=== PATIENT | male | born 1950 | race Caucasian/White ===

== ENCOUNTER 2021-04-22 06:21 | Day surgery (SDC) | payer OTHER ==
[~2021-04-22 06:21] MED LIST: ALPRAZolam 0.25 MG TAB PO PRN; ALPRAZolam 0.5 MG TAB PO PRN; ASPIRIN 325 MG TAB PO STA; ATORVASTATIN 80 MG TAB PO STA; HEPARIN SODIUM,PORCINE 10,000 UNIT in SODIUM CHLORIDE 0.9% 1,000 ML IRRIGATION PRN; HEPARIN SODIUM,PORCINE 2,500 UNIT in SODIUM CHLORIDE 0.9% 250 ML IRRIGATION PRN; SODIUM CHLORIDE 0.9% 1,000 ML in EMPTY BAG 1 BAG IV ONE
[2021-04-22] MEDS ORDERED: SODIUM CHLORIDE 0.9% 1,000 ML IV ONE (07:21)
[2021-04-22] MEDS ORDERED: MIDAZOLAM 2 MG/2 ML VIAL IVP ONE (07:37)
[2021-04-22] MEDS: LIDOCAINE 1% INJ 10MG/ML (20 ML MDV) SQ ONE ×2 (07:39→08:12)
[2021-04-22] MEDS ORDERED: VERAPAMIL SYRINGE (5 MG/10 ML) INTRAARTER ONE (07:41)
[2021-04-22] MEDS ORDERED: HEPARIN SODIUM 1,000 UN/ML (10ML VL) IVP ONE (07:42)
[2021-04-22] MEDS: fentaNYL (PF) 50 MCG/ML 2 ML AMP IVP ONE ×2 (07:59→08:50)
[2021-04-22] MEDS ORDERED: MIDAZOLAM 2 MG/2 ML VIAL IV ONE (08:18)
[2021-04-22] MEDS ORDERED: IOPAMIDOL-370 125ML BTL INJ ONE ×2 (08:18→08:49)
[2021-04-22] MEDS ORDERED: HYDROmorphone 0.5 MG/0.5 ML SYRINGE IVP ONE (08:31)
[2021-04-22] MEDS ORDERED: NITROGLYCERIN 1000MCG/10ML SYRINGE INTRACORON ONE (08:35)
[2021-04-22] MEDS ORDERED: niCARdipine Syringe (1,000 mcg/10 mL) INTRACORON ONE (08:35)
[2021-04-22] MEDS ORDERED: TICAGRELOR 90 MG TAB PO ONE (08:43)
[2021-04-22] MEDS ORDERED: NITROGLYCERIN SL TABS 0.4 MG TAB SUBLINGUAL PRN (08:54)
[2021-04-22] MEDS ORDERED: ZOLPIDEM 5 MG TAB PO PRN (08:55)
[2021-04-22] MEDS ORDERED: MAG HYDROX/AL HYDROX/SIMETH 30 ML CUP PO PRN (08:55)
[2021-04-22] MEDS ORDERED: RX INFO: IV CONTRAST WAS GIVEN 1 EACH MISC MISCELLANE PRN (08:55)
[2021-04-22] MEDS ORDERED: ATROPINE SULFATE 0.1 MG/ML 10ML SYRINGE IV PRN (08:55)
[2021-04-22] MEDS ORDERED: SODIUM CHLORIDE 0.9% 1,000 ML IV SCH (09:00)
[2021-04-22] MEDS ORDERED: ACETAMINOPHEN TAB 325 MG TAB ONE (09:32)
[2021-04-22] MEDS ORDERED: hydrALAZINE HCL 20 MG/ML 1 ML VIAL IVP PRN (10:27)
[2021-04-22] MEDS ORDERED: HYDROmorphone 0.5 MG/0.5 ML SYRINGE IVP PRN (10:27)
--- NOTE | 2021-04-22 10:51 | CC ---
CARDIAC CATHETERIZATION REPORT DATE OF SERVICE: April 22, 2021. PERFORMING PHYSICIAN: Parker Negron MD. PROCEDURE PERFORMED: 1. Selective right and left coronary angiogram. 2. Successful stenting of the proximal left anterior descending artery using 3.0 x 15 mm Xience drug-eluting stent with an excellent angiographic results. 3. Selective right common femoral artery angiogram. INDICATION: This is a 70-year-old gentleman with coronary artery disease and prior stenting of the LAD who was seen in the office recently with symptoms concerning for unstable angina. Because of that, a heart catheterization was advised. APPROACH: Right radial artery and right common femoral artery. COMPLICATION: None. LEVEL OF SEDATION: Moderate with sedation length of 82 minutes. PROCEDURE DESCRIPTION: After obtaining an informed consent, the patient was brought to the cardiac garage laborer. The right radial artery was cannulated using micropuncture technique under ultrasound guidance, the micropuncture wire passed easily. Then I placed a 6-Libyan sheath in the right radial artery. Selective left coronary angiogram was performed using JL-4 guiding catheter. After that, attempt to intervene on the LAD from right radial was unsuccessful. Because of that, I decided to abort the right radial approach and go from the right groin. The right common femoral artery was cannulated using micropuncture technique and a micropuncture wire passed easily. Then I placed a 6-Libyan sheath in the right common femoral artery. After that, I did intervene on the LAD. After that, I did left coronary angiogram using JR4 catheter. The procedure was completed without any complication. SELECTIVE CORONARY ANGIOGRAM: 1. The RCA is a medium caliber vessel. It is a nondominant vessel. It appeared to have intermediate to severe diffuse disease. 2. The left main is angiographically normal. It bifurcates into left circumflex and left anterior descending artery. 3. The left circumflex is a large caliber vessel. It is a dominant vessel. The proximal left circumflex has mild disease only and gives rise into the first obtuse marginal branch which has a tubular lesion appeared to be in the range of 50% to 60%. The left circumflex after that bifurcates distally into PDA and PLV branches. Both appeared to be angiographically normal. 4. The LAD is a large caliber vessel. The LAD proximally by the bifurcation of the large septal recruiter account manager, has a hazy lesion appeared to be in the range of 70%. The mid and distal LAD appeared to have mild disease only. The LAD also proximally gives rise into a 1st diagonal branch which is a moderate caliber vessel, appeared to be angiographically normal. PCI OF THE LAD: Anticoagulation was initiated using heparin with continuous ACT monitoring throughout the procedure. Subsequently, I did engage the left main using EBU guide. I did wire the LAD using 2 wires run-through as well as Whisper wire. Balloon angioplasty was performed using a 2.5 x 12 mm balloon before I deployed 3.0 x 15 mm Xience drug-eluting stent where the stent was positioned under fluoroscopy guidance and deployed under its nominal pressure. The following angiogram showed excellent angiographic results and the procedure was completed without any complication. CONCLUSION: 1. Intermittent episodes of chest discomfort of new onset seems to be concerning for unstable angina. 2. Severe disease involving the proximal LAD just proximal to a stented segment. 3. I did successful stenting of the LAD using 3.0 x 15 mm Xience drug-eluting stent with an excellent angiographic results. 4. Intermediate disease involving the dominant left circumflex coronary system. POSTPROCEDURE MANAGEMENT: 1. Dual anti-platelet therapy. 2. Aggressive cholesterol control. 3. Risk factor modifications. 4. Follow up with the patient. MMODL / IJN: [id number] /
[2021-04-22] MEDS: NITROGLYCERIN SL TABS 0.4 MG TAB SUBLINGUAL PRN ×4 (11:12→20:24)
[2021-04-22] MEDS ORDERED: ONDANSETRON 4 MG/2 ML VIAL IVP PRN (12:52)
[2021-04-22] MEDS: TICAGRELOR 90 MG TAB PO SCH (22:07)
[2021-04-23 08:09] VITALS: BP 153/80; PULSE 75; RESP 17; TEMP 97.4
[2021-04-23 08:23] LABS: Basophils % (A) 0 %; Eosinophils # (A) 0.3 k/uL (0-0.7); Eosinophils % (A) 4 %; HCT 45.4 % (39.0-53.0); HGB 15.4 gm/dL (13.0-17.5); Lymphocytes # (A) 1.3 k/uL (1.0-4.8); Lymphocytes % (A) 17 %; MCH 32.4 pg (25.0-35.0); MCV 95.5 fL (80.0-100.0); Mean Platelet Volume 7.4; Monocytes # (A) 0.5 k/uL (0-1.0); Monocytes % (A) 6 %; Neutrophils # (A) 5.5 k/uL (1.3-7.7); Neutrophils % (A) 71 %; Platelet Count 210 k/uL (150-450); RBC 4.76 m/uL (4.30-5.90); RDW 13.2 % (11.5-15.5); WBC 7.7 k/uL (3.8-10.6)
[2021-04-23] MEDS: TICAGRELOR 90 MG TAB PO SCH (08:31)
[2021-04-23 08:33] LABS: African American GFR (CKD) >90 (>60 ml/min/1.73 sqM); Anion Gap 7 mmol/L; Blood Urea Nitrogen 21 mg/dL (9-20); Calcium 9.6 mg/dL (8.4-10.2); Carbon Dioxide 24 mmol/L (22-30); Chloride 107 mmol/L (98-107); Glucose 90 mg/dL (74-99); Non-African American GFR(CKD) >90 (>60 ml/min/1.73 sqM); Potassium 4.2 mmol/L (3.5-5.1); Sodium 138 mmol/L (137-145)
[2021-04-23] MEDS ORDERED: ATORVASTATIN 80 MG TAB PO SCH (09:00)
[2021-04-23] MEDS ORDERED: ASPIRIN 81 MG PO SCH (09:00)
[2021-04-23] MEDS ORDERED: lisinopriL 10 MG TAB PO SCH (09:00)
[2021-04-23] MEDS ORDERED: NON FORMULARY DRUG (Glucosamine-Chondr 500-400mg 1 EACH Each) PO SCH (09:00)
[2021-04-23] MEDS ORDERED: METOPROLOL TARTRATE 50 MG TAB PO SCH (09:00)
--- NOTE | 2021-04-23 17:50 | DS ---
DISCHARGE SUMMARY ADMISSION DATE: April 22, 2021. DISCHARGE DATE: April 23, 2021 BRIEF HISTORY: This is a very pleasant 70-year-old gentleman who underwent yesterday successful stenting of the proximal left anterior descending artery with good angiographic results from right groin and right radial artery approach. Patient was seen this morning. He did have some chest discomfort yesterday, but today he is completely chest pain-free and he has been walking up and around without any symptoms. The patient is going to be discharged home on dual anti-platelet therapy and I will follow up with the patient in a week in the office. MMODL / IJN: [id number] /
== END 2021-04-23 12:25 | disposition home or self-care (01) ==
LOC: CATHCVL 06:21 → 6NMEDSUR 13:05 → CATHCVL 04-23 12:25
PROVIDERS: ATTEND Internal Medicine Interventional Cardiology
DX: I25.10 Atherosclerotic heart disease of native coronary artery without angina pectoris (principal); I10 Essential (primary) hypertension; E78.5 Hyperlipidemia, unspecified; Z82.49 Family history of ischemic heart disease and other diseases of the circulatory system; Z95.5 Presence of coronary angioplasty implant and graft; I35.8 Other nonrheumatic aortic valve disorders; Z79.82 Long term (current) use of aspirin; Z79.899 Other long term (current) drug therapy; Z88.1 Allergy status to other antibiotic agents; Z88.8 Allergy status to other drugs, medicaments and biological substances; E66.3 Overweight; Z68.30 Body mass index [BMI] 30.0-30.9, adult
CPT/HCPCS: 93454; 80048; 84484 ×2; 85025; C9600; J2250; J0360; J2001; J3010; J1644; J1170; Q9967

== ENCOUNTER → 2021-09-08 | Outpatient (CLI) | payer OTHER ==
--- NOTE | 2021-09-08 12:27 | MR ---
EXAMINATION TYPE: MR Prostate wo/w con DATE OF EXAM: 09/08/2021 COMPARISON: None. IMAGE QUALITY: Satisfactory. INDICATION: C61 prostate ca, High PSA level PSA: 5.9 ng/ml on July 08, 2021 Recent Biopsy and Date: none Pathology Report (If Applicable): n/a TECHNIQUE: Examination was performed using a 3T MRI without an endorectal coil. Multiparametric imaging was perf ormed with T2 mutliplanar sequences, axial diffusion weighted imaging and dynamic contrast enhanced i maging, utilizing 10 mL intravenous Gadavist gadolinium contrast. FINDINGS: There is no clinically significant cancer identified. PROSTATE VOLUME: 5.7 cm SI x 4.6 cm AP x 5.6 cm LR Vol= 76.9 cc Predicted PSA equals 9.228 PSA DENSITY: 0.08 ng/ml/cc Peripheral zone appears thinned without areas of suspicious diminished signal on ADC mapping. Transitional zone shows overall marked heterogeneity without suspicious indistinct or distinct lesion s of asymmetric T2 hypointensity. Prostate capsule is maintained. Seminal vesicles are symmetric and within normal limits. No adjacent adenopathy is seen. Bladder is poorly distended with mild to moderate wall thickening and trabeculations. SPECT outlet ob struction. Visualized osseous structures are intact. Facet arthropathy in the lower lumbar spine is seen. There is moderate-sized fat-containing left inguinal hernia incidentally noted. IMPRESSION: Markedly enlarged prostate consistent with BPH. A focus of clinically significant cancer is not identified. Highest Assessment Category: 1 MRI Stage: T0 N0 M0 based on review of pelvic images. False negative rates for MRI range from 5-20% depending on risk profile. Assessment Categories: 1 ? Very low (clinically significant cancer is highly unlikely to be present) 2 ? Low (clinically significant cancer is unlikely to be present) 3 ? Intermediate (the presence of clinically significant cancer is equivocal) 4 ? High (clinically significant cancer is likely to be present) 5 ? Very high (clinically significant cancer is highly likely to be present)
== END | disposition home or self-care (01) ==
LOC: RADMRIMAIN 09:01
PROVIDERS: ATTEND Urology
DX: C61 Malignant neoplasm of prostate (principal)
CPT/HCPCS: 72197; A9585

== ENCOUNTER 2022-01-27 12:06 | Inpatient (IN) | payer MEDICARE ==
--- NOTE | 2022-01-26 16:21 | HP ---
HISTORY AND PHYSICAL CHIEF COMPLAINT: Left knee pain. HISTORY OF PRESENT ILLNESS: The patient is a 71-year-old retired gentleman who presents after undergoing previous viscosupplementation of his left knee on 01/05/2022 with increasing pain and symptoms. Subsequently he had his knee drained with a cortisone injection placed on 01/15/2022. He notes persistent/progressive pain and has a difficult time weightbearing. He denies fevers or chills. He did also start a Medrol Dosepak, with minimal relief. He is using a walker and a brace. PAST MEDICAL HISTORY: Significant for coronary artery disease, hypertension, hypercholesterolemia. PAST SURGICAL HISTORY: Significant for left hand surgery, bilateral knee surgery, cardiac stent placement. CURRENT MEDICATIONS: Aspirin, lisinopril, atorvastatin, Plavix, Singulair and metoprolol. ALLERGIES: KEFLEX AND CIPROFLOXACIN. FAMILY HISTORY: Significant for cancer. SOCIAL HISTORY: Negative for current tobacco or alcohol use. REVIEW OF SYSTEMS: Sixteen-point review of systems is otherwise reviewed and is noncontributory. PHYSICAL EXAMINATION: On examination, the patient is approximately 5 feet 10 inches, 250 pounds of endomorphic habitus. HEENT exam is nonfocal. Neck is supple. He has painless passive motion of the left hip. Straight-leg raise is negative. Active motion of left knee: Minus 20 to 85 degrees of flexion. He has a moderate effusion. There is mild increased warmth. He is tender about the medial and lateral joint line. Collaterals are stable. Zoie is negative. Shady's is equivocal. Homans are negative. His distal neurovascular exam appears intact in the left lower extremity. He does have an antalgic gait pattern. Laboratory results 01/22/2022 show peripheral white blood cell count 12.7, sedimentation rate 44, CRP 8.2. IMPRESSION: Left knee severe medial compartment osteoarthrosis with possible crystalline arthropathy versus septic arthritis. RECOMMENDATIONS: I talked to the patient at length regarding his condition along with treatment options. At this point he remains quite symptomatic despite attempted conservative measures. We will plan to proceed with arthroscopic irrigation and debridement of his left knee. We will keep the patient for a 23-hour hold postoperatively. We will obtain Gram stain and cultures intraoperatively. MMODL / IJN: [id number] /
[~2022-01-27 12:06] MED LIST changes: -ALPRAZolam 0.25 MG TAB PO PRN; -ALPRAZolam 0.5 MG TAB PO PRN; -ASPIRIN 325 MG TAB PO STA; -ATORVASTATIN 80 MG TAB PO STA; +CLINDAMYCIN 600 MG in DEXTROSE 5% IN WATER 50 ML IVPB PRN; -HEPARIN SODIUM,PORCINE 10,000 UNIT in SODIUM CHLORIDE 0.9% 1,000 ML IRRIGATION PRN; -HEPARIN SODIUM,PORCINE 2,500 UNIT in SODIUM CHLORIDE 0.9% 250 ML IRRIGATION PRN; -SODIUM CHLORIDE 0.9% 1,000 ML in EMPTY BAG 1 BAG IV ONE
[2022-01-27] MEDS ORDERED: LACTATED RINGERS 1,000 ML IV ONE (13:50)
[2022-01-27] MEDS ORDERED: LIDOCAINE 1% (10MG/ML) FOR IV START INTRADERMA ONE (13:50)
[2022-01-27 13:55] LABS: Glucose,Whole Blood 111 mg/dL (75-99)
[2022-01-27] MEDS ORDERED: METOPROLOL TARTRATE 50 MG TAB PO SCH (14:00)
[2022-01-27] MEDS ORDERED: HEPARIN SODIUM 1,000 UN/ML (10ML VL) IV ONE (14:13)
[2022-01-27] MEDS ORDERED: HEPARIN SODIUM 1,000 UN/ML (10ML VL) IV PRN (14:13)
[2022-01-27] MEDS ORDERED: DILTIAZEM DRIP BOLUS FROM BAG 1 MG SOLN IV ONE (14:14)
[2022-01-27] MEDS: HEPARIN SOD,PORK IN 0.45% NACL 25,000 UNIT in 0.45% NACL 1 250ML.BAG IV SCH (14:15)
--- NOTE | 2022-01-27 14:29 | P.CRDCN ---
History of Present Illness History of present illness: HISTORY OF PRESENTING ILLNESS This is a pleasant 71-year-old male past medical history significant for coronary artery disease s/p PCI proximal LAD most recently in 04/2021 and PCI proximal PCI 2013, hypertension, dyslipidemia. Follows with Dr. Negron. We have been asked to see in consultation for new onset atrial fibrillation with rapid ventricular response. He has been having left knee pain for some time now. He underwent viscosupplementation of the left knee on 01/05/22, cortisone injection 01/15 and is admitted for planned arthroscopic irrigation and debridement of his left knee with Dr. Monaco. Prior to procedure patient was noted to be tachycardic on the cardiac telemetry. EKG was performed which revealed atrial fibrillation with rapid ventricular response, heart rate 132. Patient did not take his cardiac medications this morning for the planned procedure. Patient denies any history of atrial fibrillation, heart failure, stroke, diabetes. He denies any history of GI bleed or bleeding ulcers. Currently has difficulty ambulating secondary to his left knee. DIAGNOSTICS Telemetry tracings indicate atrial fibrillation with HR 120s-130s Laboratory reviewed, Glucose 111 Current home medications include aspirin 81 mg daily, atorvastatin 80 mg daily, metoprolol titrate 50 mg daily, lisinopril 10 mg daily, Plavix 70 mg daily Cardiac catheterization 04/2021 revealed proximal LAD with a 70% lesion, intermediate to severe disease in RCA, intermediate disease involving the left circumflex. Patient underwent PCI to proximal LAD Most recent echocardiogram 07/2020 revealed EF of 60%, mild mitral regurgitation, mild concentric LVH, mild tricuspid regurgitation REVIEW OF SYSTEMS At the time of my exam: CONSTITUTIONAL: Denies fever or chills. CARDIOVASCULAR: Denies chest pain, shortness of breath, orthopnea, PND or palpitations. RESPIRATORY: Denies cough. GASTROINTESTINAL: Denies abdominal pain, diarrhea, constipation, nausea or vomiting. MUSCULOSKELETAL: +left knee pain NEUROLOGIC: Denies numbness, tingling, headacbe or weakness. ENDOCRINE: Denies fatigue, weight change, polydipsia or polyurina. GENITOURINARY: Denies burning, hematuria or urgency with micturation. HEMATOLOGIC: Denies history of anemia or bleeding. PHYSICAL EXAMINATION Vitals 145/86, heart rate 122, afebrile, saturation 97% on room air CONSTITUTIONAL: No apparent distress. HEENT: Head is normocephalic. Pupils are equal, round. Sclerae anicteric. Mucous membranes of the mouth are moist. No JVD. No carotid bruit. CHEST EXAMINATION: Lungs are clear to auscultation. No chest wall tenderness is noted on palpation or with deep breathing. HEART EXAMINATION: Irregular rate and rhythm. S1, S2 heard. No murmurs, gallops or rub. ABDOMEN: Soft, nontender. Positive bowel sounds. EXTREMITIES: 2+ peripheral pulses, no lower extremity edema and no calf tenderness. SKIN: warm, dry NEUROLOGIC EXAMINATION: Patient is awake, alert and oriented x3. ASSESSMENT New onset paroxysmal atrial fibrillation with RVR -[id number] score 3 Left knee pain with planned arthroscopic irrigation and debridement of his left knee with Dr. Monaco Coronary artery disease s/p PCI proximal LAD most recently in 04/2021 and PCI proximal PCI 2013 Hypertension Dyslipidemia PLAN Case discussed with Dr. Meraz Start IV Cardizem 5mg bolus and drip Increase metoprolol 50mg BID Start IV heparin Check TSH Obtain 2D echocardiogram Recommend admission to 3S Continue aspirin, plavix and statin Further recommendations based on clinical course Nurse practitioner note has been reviewed by physician. Signing provider agrees with the documented findings, assessment, and plan of care. Past Medical History Past Medical History: Coronary Artery Disease (CAD), Chest Pain / Angina, Hyperlipidemia, Sleep Apnea/CPAP/BIPAP Additional Past Medical History / Comment(s): no CPAP used, History of Any Multi-Drug Resistant Organisms: None Reported Past Surgical History: Appendectomy, Back Surgery, Heart Catheterization With Stent, Orthopedic Surgery, Tonsillectomy Additional Past Surgical History / Comment(s): total 2 stents, rt elbow surgery, candelaria knee arthroscopy, l hand x2 Past Anesthesia/Blood Transfusion Reactions: No Reported Reaction Date of Last Stent Placement:: 10/2013 Past Psychological History: No Psychological Hx Reported Smoking Status: Never smoker Past Alcohol Use History: Occasional Past Drug Use History: None Reported - Past Family History Mother Family Medical History: Cancer Medications and Allergies Home Medications Medication Instructions Recorded Confirmed Type Aspirin [Adult Low Dose Aspirin EC] 81 mg PO DAILY 10/14/15 01/27/22 History Atorvastatin [Lipitor] 80 mg PO DAILY 10/14/15 01/27/22 History Metoprolol Tartrate 50 mg PO DAILY 10/14/15 01/27/22 History Nitroglycerin Sl Tabs [Nitrostat] 0.4 mg SUBLINGUAL DIRECTED PRN 10/14/15 01/27/22 History lisinopriL [Zestril] 10 mg PO DAILY 10/14/15 01/27/22 History Acetaminophen [Tylenol Extra 1,000 mg PO BID 01/27/22 01/27/22 History Strength] Acetaminophen/Diphenhydramine 1 tab PO HS PRN 01/27/22 01/27/22 History [Tylenol PM 500-25mg] Cetirizine HCl [Zyrtec] 10 mg PO HS 01/27/22 01/27/22 History Clopidogrel [Plavix] 75 mg PO DAILY 01/27/22 01/27/22 History Montelukast [Singulair] 10 mg PO DAILY 01/27/22 01/27/22 History Tadalafil [Cialis] 5 mg PO DAILY 01/27/22 01/27/22 History diphenhydrAMINE [Benadryl] 25 mg PO DAILY PRN 01/27/22 01/27/22 History methylPREDNISolone [Medrol Dose 0 mg PO DIRECTED 01/27/22 01/27/22 History Pack] Allergies Allergy/AdvReac Type Severity Reaction Status Date / Time cephalexin monohydrate Allergy Anaphylaxis Verified 01/27/22 13:01 [From [employer]] ciprofloxacin Allergy Anaphylaxis Verified 01/27/22 13:01 Physical Exam Vitals: Vital Signs Temp Pulse Resp BP Pulse Ox 01/27/22 13:15 98.2 F 122 H 16 145/86 97 Intake and Output 01/26/22 01/27/22 01/27/22 22:59 06:59 14:59 Other: Weight 104.8 kg Results Current Medications Generic Name Dose Route Start Last Admin Trade Name Freq PRN Reason Stop Dose Admin Atorvastatin Calcium 80 mg 01/28/22 09:00 Atorvastatin 80 Mg Tab PO 02/27/22 09:01 DAILY [facility] Clopidogrel Bisulfate 75 mg 01/27/22 14:15 Clopidogrel 75 Mg Tab PO 02/26/22 14:16 DAILY [facility] Diltiazem HCl 5 mg 01/27/22 14:14 Diltiazem Drip Bolus From Bag 1 Mg Soln IV 01/27/22 14:15 ONCE ONE Heparin Sodium (Porcine) 4,000 unit 01/27/22 14:13 Heparin Sodium 1,000 Un/Ml (10ml Vl) IV 01/27/22 14:14 ONCE ONE Heparin Sodium (Porcine) 0 unit 01/27/22 14:13 Heparin Sodium 1,000 Un/Ml (10ml Vl) IV 02/26/22 14:14 PER PROTOCOL PRN Low PTT Protocol Clindamycin Phosphate 600 mg/ 54 mls @ 54 mls/hr 01/27/22 06:00 Dextrose/Water IVPB 01/27/22 23:00 ONCE PRN PRE-OP Heparin Sodium/Sodium Chloride 250 mls @ 12.576 mls/hr 01/27/22 14:15 25,000 unit/ Sodium Chloride IV 02/26/22 14:16 .[id number] [facility] Protocol 12 UNITS/KG/HR Diltiazem HCl 125 mg/ Sodium 125 mls @ 5 mls/hr 01/27/22 14:15 Chloride IV 02/26/22 14:16 .Q24H [facility] 5 MG/HR Lisinopril 10 mg 01/28/22 09:00 Lisinopril 2.5 Mg Tab PO 02/27/22 09:01 DAILY [facility] Metoprolol Tartrate 50 mg 01/27/22 14:15 Metoprolol Tartrate 50 Mg Tab PO 02/26/22 14:16 BID [facility] Non-Formulary Medication 81 mg 01/28/22 09:00 Aspirin [Adult Low Dose Aspirin Ec] PO 02/27/22 09:01 DAILY [facility] Intake and Output 01/26/22 01/27/22 01/27/22 22:59 06:59 14:59 Other: Weight 104.8 kg Patient Weight 01/28/22 06:59 Weight 104.8 kg
[2022-01-27] MEDS: DILTIAZEM 125 MG in SODIUM CHLORIDE 0.9% 100 ML IV SCH (14:40)
[2022-01-27] MEDS ORDERED: HYDROmorphone 1 MG/ML 1 ML SYRINGE IVP ONE (14:48)
--- NOTE | 2022-01-27 14:57 | P.OP ---
Date of Procedure: 01/27/22 Preoperative Diagnosis: Left knee synovitis/possible septic arthritis Postoperative Diagnosis: Same Procedure(s) Performed: Aspiration left knee Anesthesia: none Surgeon: Alonso Monaco Estimated Blood Loss (ml): 0 Pathology: other (Gram stain, cultures, cell count) Condition: stable Disposition: PACU Indications for Procedure: The patient's 71-year-old male presents with progressive left knee pain and swelling after a recent injections of discussed supplementation and cortisone. Clinically he was noted have significant synovitis with possible septic arthritis. A discussion the risks and benefits of aspiration was patient. He opted to proceed. Operative Findings: As below Description of Procedure: The left lateral knee was prepped with ChloraPrep. 15 mL of cloudy fluid was aspirated and sent for Gram stain, cultures, and cell count/crystals. He tolerated the procedure well. There were no complications. There was no blood loss.
[2022-01-27] MEDS: METOPROLOL TARTRATE 50 MG TAB PO SCH ×2 (15:21→21:53)
[2022-01-27 15:29] LABS: Basophils % (A) 0 %; Eosinophils # (A) 0.1 k/uL (0-0.7); Eosinophils % (A) 1 %; HCT 28.4 % (39.0-53.0); HGB 9.5 gm/dL (13.0-17.5); Lymphocytes # (A) 1.6 k/uL (1.0-4.8); Lymphocytes % (A) 12 %; MCH 32.8 pg (25.0-35.0); MCHC 33.4 g/dL (31.0-37.0); MCV 98.1 fL (80.0-100.0); Mean Platelet Volume 7.8; Monocytes # (A) 0.8 k/uL (0-1.0); Monocytes % (A) 6 %; Neutrophils # (A) 10.7 k/uL (1.3-7.7); Neutrophils % (A) 80 %; Platelet Count 424 k/uL (150-450); RDW 13.7 % (11.5-15.5); WBC 13.3 k/uL (3.8-10.6)
[2022-01-27 15:38] LABS: Appearance,BF Cloudy; Nucleated Cells, Body Fluid 50800 /uL; RBC, Body Fluid 1200 /uL
[2022-01-27 15:39] LABS: African American GFR (CKD) >90 (>60 ml/min/1.73 sqM); Anion Gap 8 mmol/L; Blood Urea Nitrogen 34 mg/dL (9-20); Calcium 9.1 mg/dL (8.4-10.2); Carbon Dioxide 26 mmol/L (22-30); Chloride 100 mmol/L (98-107); Glucose 99 mg/dL (74-99); Non-African American GFR(CKD) 79 (>60 ml/min/1.73 sqM); Potassium 4.8 mmol/L (3.5-5.1); Sodium 134 mmol/L (137-145)
[2022-01-27 15:45] LABS: Partial Thromboplastin Time 20.6 sec (22.0-30.0); Prothrombin Time 11.2 sec (9.0-12.0)
[2022-01-27] MEDS: CLOPIDOGREL 75 MG TAB PO SCH (15:53)
[2022-01-27 16:57] LABS: Mononuclear WBC,Body Fluid 2 %; Polynuclear WBC,Body Fluid 92 %; Total Cells Counted,Body Fluid 100
[2022-01-27] MEDS: HYDROmorphone 1 MG/ML 1 ML SYRINGE IVP PRN ×2 (18:48→21:53)
[2022-01-28] MEDS: HYDROmorphone 1 MG/ML 1 ML SYRINGE IVP PRN ×7 (01:53→23:28)
[2022-01-28 02:36] LABS: Synovial Fld Crystals Seen (None Seen)
[2022-01-28 03:50] LABS: Basophils % (A) 0 %; Eosinophils # (A) 0.1 k/uL (0-0.7); Eosinophils % (A) 1 %; HCT 25.9 % (39.0-53.0); HGB 8.6 gm/dL (13.0-17.5); Lymphocytes % (A) 18 %; MCH 33.1 pg (25.0-35.0); MCHC 33.2 g/dL (31.0-37.0); MCV 99.8 fL (80.0-100.0); Mean Platelet Volume 7.6; Monocytes # (A) 0.8 k/uL (0-1.0); Monocytes % (A) 8 %; Neutrophils # (A) 7.8 k/uL (1.3-7.7); Neutrophils % (A) 71 %; Platelet Count 400 k/uL (150-450); RDW 13.7 % (11.5-15.5)
[2022-01-28 03:59] LABS: INR 1.1 (<1.2); Partial Thromboplastin Time 35.5 sec (22.0-30.0); Prothrombin Time 11.4 sec (9.0-12.0)
[2022-01-28 04:04] LABS: Calcium 8.4 mg/dL (8.4-10.2); Potassium 4.8 mmol/L (3.5-5.1)
[2022-01-28] MEDS: ATORVASTATIN 80 MG TAB PO SCH (08:56)
[2022-01-28] MEDS: CLOPIDOGREL 75 MG TAB PO SCH (08:56)
[2022-01-28] MEDS: METOPROLOL TARTRATE 50 MG TAB PO SCH ×3 (08:56→19:54)
[2022-01-28] MEDS: lisinopriL 10 MG TAB PO SCH (08:57)
[2022-01-28] MEDS ORDERED: ASPIRIN 81 MG PO SCH (09:00)
[2022-01-28] MEDS: DILTIAZEM 125 MG in SODIUM CHLORIDE 0.9% 100 ML IV SCH (10:34)
[2022-01-28] MEDS: HEPARIN SOD,PORK IN 0.45% NACL 25,000 UNIT in 0.45% NACL 1 250ML.BAG IV SCH (10:35)
--- NOTE | 2022-01-28 11:35 | CA ---
Transthoracic Echo Report Name: Abhishek Gabriel Age: 71 Gender: M : 1950 Exam Date: 01/28/2022 08:44 Exam Location: [facility] Ht (in): 60 Wt (lb): 231 Ordering Physician: Eunice Buckley Attending/Referring Phys: Greens Planter Kim Shea, BOLIVAR Procedure CPT: Indications: new onset atrial fibrillation with rvr Cardiac Hx: Htn, Chol, Stent Technical Quality: Fair Contrast 1: N/A Total Dose (mL): Contrast 2: Total Dose (mL): MEASUREMENTS (Male / Female) Normal Values 2D ECHO LV Diastolic Diameter PLAX 5.0 cm 4.2 - 5.9 / 3.9 - 5.3 cm LV Systolic Diameter PLAX 4.3 cm IVS Diastolic Thickness 1.2 cm 0.6 - 1.0 / 0.6 - 0.9 cm LVPW Diastolic Thickness 1.2 cm 0.6 - 1.0 / 0.6 - 0.9 cm LV Relative Wall Thickness 0.5 RV Internal Dim ED PLAX 2.8 cm LA Volume 70.9 cm??? 18 - 58 / 22 - 52 cm??? M-MODE Aortic Root Diameter MM 3.4 cm DOPPLER TR Peak Velocity 173.6 cm/s TR Peak Gradient 12.1 mmHg Right Ventricular Systolic Press 17.1 mmHg FINDINGS Left Ventricle Normal left ventricular size, wall thickness, systolic function with no obvious regional wall motion abnormalities. The ejection fraction is visually estimated at 50-55 %. Right Ventricle The right ventricle is normal in size and function. Right ventricular systolic pressure within normal limits. Right Atrium The right atrium is normal in size. Left Atrium Moderately increased left atrial volume. Mildly increased left atrial area. Mitral Valve Structurally normal mitral valve, There is no mitral regurgitation. Aortic Valve Structurally normal aortic valve with sclerosis. Tricuspid Valve Structurally normal tricuspid valve. Pulmonic Valve Pulmonic valve not well visualized. Pericardium Normal pericardium without effusion. Cannot exclude a fat pad Aorta Normal aortic root dimension. CONCLUSIONS Patient is in atrial fibrillation fairly well-preserved systolic function. Valvular structures are not well seen. No pericardial effusion Previewed by: Dr. Grace Meraz MD (Electronically Signed) Final Date: 28 January 2022 11:34
[2022-01-28] MEDS ORDERED: VANCOMYCIN IV PER PHARMACY 1 EACH MISC MISCELLANE PRN (11:36)
--- NOTE | 2022-01-28 12:21 | P.PN ---
Subjective Progress Note Date: 01/28/22 Principal diagnosis: Left knee pain/left knee effusion Patient was evaluated today at bedside, he is resting in his hospital bed. Patient has very severe pain in the left knee. Surgery was canceled yesterday due to the fact or new onset A. fib with RVR. Dr. Monaco was able to aspirate the left knee yesterday and fluid results were sent for analysis. Currently awaiting culture results, crystals were noted on exam. Patient states that the pain medication is not lasting very long at this time. He is not to weight-bear on the left knee. He currently denies any fevers or chills. He is being followed by multiple medical specialties at this time. Objective - Vital Signs Vital signs: Vital Signs Temp 98.1 F 01/28/22 04:00 Pulse 110 H 01/28/22 04:00 Resp 18 01/28/22 04:00 BP 118/70 01/28/22 04:00 Pulse Ox 95 01/28/22 04:00 FiO2 Intake & Output 01/27/22 01/28/22 01/28/22 18:59 06:59 18:59 Intake Total 330 670.718 92.198 Output Total 800 Balance 330 -129.282 92.198 Weight 104.8 kg Intake: Intake, IV Titration 190.718 92.198 Amount Diltiazem 125 mg In 40 Sodium Chloride 0.9% 100 ml @ 5 MG/HR 5 mls/hr IV .Q24H [facility] Rx#:[id number] Heparin Sod,Pork in 0.45% 150.718 92.198 NaCl 25,000 unit In 0.45 % NaCl 1 250ml.bag @ 9. 542 UNITS/KG/HR 10 mls/hr IV .Q24H [facility] Rx#: [id number] Oral 330 480 Output: Urine 800 - Exam Left knee: Obvious effusion present on the knee, no significant erythema noted. There are no open lesions present. He does have chronic skin discoloration noted in the lower leg Range of motion involving the knee is very limited at this time due to pain. Plantar flexion, dorsiflexion, EHL, FHL are intact. Logroll maneuver of the extremity reproduces no groin pain Compartments of the upper and lower leg. Anterior-posterior soft and compressible. Calf is soft, no tenderness with palpation Sensory exam to light touch is intact throughout the extremity Dorsalis pedis pulses 2+ - Labs CBC & Chem 7: 01/28/22 02:35 01/28/22 02:35 Labs: Abnormal Lab Results - Last 24 Hours (Table) 01/27/22 01/27/22 01/27/22 Range/Units 13:52 14:38 14:38 WBC 13.3 H (3.8-10.6) k/uL RBC 2.90 L (4.30-5.90) m/uL Hgb 9.5 L (13.0-17.5) gm/dL Hct 28.4 L (39.0-53.0) % Neutrophils # 10.7 H (1.3-7.7) k/uL APTT 20.6 L (22.0-30.0) sec Sodium (137-145) mmol/L BUN (9-20) mg/dL Glucose (74-99) mg/dL POC Glucose (mg/dL) 111 H (75-99) mg/dL Synovial Crystals (None Seen) 01/27/22 01/27/22 01/27/22 Range/Units 14:38 14:55 21:21 WBC (3.8-10.6) k/uL RBC (4.30-5.90) m/uL Hgb (13.0-17.5) gm/dL Hct (39.0-53.0) % Neutrophils # (1.3-7.7) k/uL APTT 37.4 H (22.0-30.0) sec Sodium 134 L (137-145) mmol/L BUN 34 H (9-20) mg/dL Glucose (74-99) mg/dL POC Glucose (mg/dL) (75-99) mg/dL Synovial Crystals Seen A (None Seen) 01/28/22 01/28/22 01/28/22 Range/Units 02:35 02:35 02:35 WBC 11.0 H (3.8-10.6) k/uL RBC 2.60 L (4.30-5.90) m/uL Hgb 8.6 L (13.0-17.5) gm/dL Hct 25.9 L (39.0-53.0) % Neutrophils # 7.8 H (1.3-7.7) k/uL APTT 35.5 H (22.0-30.0) sec Sodium 130 L (137-145) mmol/L BUN 32 H (9-20) mg/dL Glucose 113 H (74-99) mg/dL POC Glucose (mg/dL) (75-99) mg/dL Synovial Crystals (None Seen) 01/28/22 Range/Units 09:55 WBC (3.8-10.6) k/uL RBC (4.30-5.90) m/uL Hgb (13.0-17.5) gm/dL Hct (39.0-53.0) % Neutrophils # (1.3-7.7) k/uL APTT 53.8 H (22.0-30.0) sec Sodium (137-145) mmol/L BUN (9-20) mg/dL Glucose (74-99) mg/dL POC Glucose (mg/dL) (75-99) mg/dL Synovial Crystals (None Seen) Microbiology - Last 24 Hours (Table) 01/27/22 14:55 Gram Stain - Preliminary Knee - Left Wound Culture - Preliminary 01/27/22 14:55 Fungal Culture - Preliminary Knee - Left 01/27/22 14:55 Anaerobic Culture - Preliminary Knee - Left Assessment and Plan Assessment: Left knee pain Left knee osteoarthritis Left knee effusion Left knee gouty arthropathy Possible septic arthritis left knee New-onset A. fib Other medical comorbidities Plan: Was able to discuss the case and today's exam findings with Dr. Monaco. With the fluid results showing positive crystals, patient will be started on 0.6 mg colchicine daily. I was able to discuss with nursing in the cardiology group they would like to hold off on any surgery at this time due to his heart rate. We will continue to monitor the culture and sensitivity results, surgery will be on hold at this time Regular diet Ice and elevate Pain control, continue with both oral and IV as needed GI and DVT prophylaxis, appreciate cardiology recommendation Medical recommendations Further recommendations to follow Time with Patient: Less than 30
[2022-01-28] MEDS ORDERED: VANCOMYCIN 2,000 MG in SODIUM CHLORIDE 0.9% 500 ML 500 ML IVPB ONE (12:30)
[2022-01-28] MEDS: COLCHICINE 0.6 MG EACH PO SCH (12:36)
--- NOTE | 2022-01-28 13:30 | P.PN ---
Subjective Progress Note Date: 01/28/22 HISTORY OF PRESENTING ILLNESS This is a pleasant 71-year-old male past medical history significant for cor onary artery disease s/p PCI proximal LAD most recently in 04/2021 and PCI proximal PCI 2013, hypertension, dyslipidemia. Follows with Dr. Negron. We have been asked to see in consultation for new onset atrial fibrillation with rapid ventricular response. He has been having left knee pain for some time now. He underwent viscosupplementation of the left knee on 01/05/22, cortisone injection 01/15 and is admitted for planned arthroscopic irrigation and debridement of his left knee with Dr. Monaco. Prior to procedure patient was noted to be tachycardic on the cardiac telemetry. EKG was performed which revealed atrial fibrillation with rapid ventricular response, heart rate 132. Patient did not take his cardiac medications this morning for the planned procedure. Patient denies any history of atrial fibrillation, heart failure, stroke, diabetes. He denies any history of GI bleed or bleeding ulcers. Currently has difficulty ambulating secondary to his left knee. DIAGNOSTICS Telemetry tracings indicate atrial fibrillation with HR 120s-130s Laboratory reviewed, Glucose 111 Current home medications include aspirin 81 mg daily, atorvastatin 80 mg daily, metoprolol titrate 50 mg daily, lisinopril 10 mg daily, Plavix 70 mg daily Cardiac catheterization 04/2021 revealed proximal LAD with a 70% lesion, intermediate to severe disease in RCA, intermediate disease involving the left circumflex. Patient underwent PCI to proximal LAD Most recent echocardiogram 07/2020 revealed EF of 60%, mild mitral regurgitation, mild concentric LVH, mild tricuspid regurgitation 01/28/2022 Patient examined this morning at the bedside. Patient remains in atrial fibrillation with heart rates 90-110. He remains on IV heparin and IV cardizem. Patient is s/p aspiration of left knee yesterday. Echocardiogram completed revealing ejection fraction 50-55%. PHYSICAL EXAMINATION CONSTITUTIONAL: No apparent distress. HEENT: Head is normocephalic. Pupils are equal, round. Sclerae anicteric. Mucous membranes of the mouth are moist. No JVD. No carotid bruit. CHEST EXAMINATION: Lungs are clear to auscultation. No chest wall tenderness is noted on palpation or with deep breathing. HEART EXAMINATION: Irregular rate and rhythm. S1, S2 heard. No murmurs, gallops or rub. ABDOMEN: Soft, nontender. Positive bowel sounds. EXTREMITIES: 2+ peripheral pulses, no lower extremity edema and no calf tenderness. SKIN: warm, dry NEUROLOGIC EXAMINATION: Patient is awake, alert and oriented x3. ASSESSMENT New onset paroxysmal atrial fibrillation with RVR -[id number] score 3 Left knee pain with planned arthroscopic irrigation and debridement of his left knee with Dr. Monaco, s/p left knee aspiration Coronary artery disease s/p PCI proximal LAD most recently in 04/2021 and PCI proximal PCI 2013 Hypertension Dyslipidemia PLAN Continue IV heparin at this time in case ortho team decides any further surgical intervention in the near future. Eventual transition to oral anticoagulation. Will increase metoprolol to 50mg TID Wean off Cardizem drip if heart rate will tolerate Continue telemetry monitoring Further recommendations based on clinical course Nurse practitioner note has been reviewed by physician. Signing provider agrees with the documented findings, assessment, and plan of care. Objective - Vital Signs Vital signs: Vital Signs Temp 97.5 F L 01/28/22 12:00 Pulse 81 01/28/22 12:00 Resp 14 01/28/22 12:00 BP 79/38 01/28/22 12:00 Pulse Ox 96 01/28/22 12:00 FiO2 Intake & Output 01/27/22 01/28/22 01/28/22 18:59 06:59 18:59 Intake Total 330 670.718 307.198 Output Total 800 Balance 330 -129.282 307.198 Weight 104.8 kg Intake: Intake, IV Titration 190.718 107.198 Amount Diltiazem 125 mg In 40 15 Sodium Chloride 0.9% 100 ml @ 5 MG/HR 5 mls/hr IV .Q24H [facility] Rx#:[id number] Heparin Sod,Pork in 0.45% 150.718 92.198 NaCl 25,000 unit In 0.45 % NaCl 1 250ml.bag @ 9. 542 UNITS/KG/HR 10 mls/hr IV .Q24H [facility] Rx#: [id number] Oral 330 480 200 Output: Urine 800 - Labs CBC & Chem 7: 01/28/22 02:35 01/28/22 02:35 Labs: Abnormal Lab Results - Last 24 Hours (Table) 01/27/22 01/27/22 01/27/22 Range/Units 13:52 14:38 14:38 WBC 13.3 H (3.8-10.6) k/uL RBC 2.90 L (4.30-5.90) m/uL Hgb 9.5 L (13.0-17.5) gm/dL Hct 28.4 L (39.0-53.0) % Neutrophils # 10.7 H (1.3-7.7) k/uL APTT 20.6 L (22.0-30.0) sec Sodium (137-145) mmol/L BUN (9-20) mg/dL Glucose (74-99) mg/dL POC Glucose (mg/dL) 111 H (75-99) mg/dL Synovial Crystals (None Seen) 01/27/22 01/27/22 01/27/22 Range/Units 14:38 14:55 21:21 WBC (3.8-10.6) k/uL RBC (4.30-5.90) m/uL Hgb (13.0-17.5) gm/dL Hct (39.0-53.0) % Neutrophils # (1.3-7.7) k/uL APTT 37.4 H (22.0-30.0) sec Sodium 134 L (137-145) mmol/L BUN 34 H (9-20) mg/dL Glucose (74-99) mg/dL POC Glucose (mg/dL) (75-99) mg/dL Synovial Crystals Seen A (None Seen) 01/28/22 01/28/22 01/28/22 Range/Units 02:35 02:35 02:35 WBC 11.0 H (3.8-10.6) k/uL RBC 2.60 L (4.30-5.90) m/uL Hgb 8.6 L (13.0-17.5) gm/dL Hct 25.9 L (39.0-53.0) % Neutrophils # 7.8 H (1.3-7.7) k/uL APTT 35.5 H (22.0-30.0) sec Sodium 130 L (137-145) mmol/L BUN 32 H (9-20) mg/dL Glucose 113 H (74-99) mg/dL POC Glucose (mg/dL) (75-99) mg/dL Synovial Crystals (None Seen) 01/28/22 Range/Units 09:55 WBC (3.8-10.6) k/uL RBC (4.30-5.90) m/uL Hgb (13.0-17.5) gm/dL Hct (39.0-53.0) % Neutrophils # (1.3-7.7) k/uL APTT 53.8 H (22.0-30.0) sec Sodium (137-145) mmol/L BUN (9-20) mg/dL Glucose (74-99) mg/dL POC Glucose (mg/dL) (75-99) mg/dL Synovial Crystals (None Seen) Microbiology - Last 24 Hours (Table) 01/27/22 14:55 Gram Stain - Preliminary Knee - Left Wound Culture - Preliminary 01/27/22 14:55 Fungal Culture - Preliminary Knee - Left 01/27/22 14:55 Anaerobic Culture - Preliminary Knee - Left
--- NOTE | 2022-01-28 15:17 | P.CONS ---
History of Present Illness - Chief Complaint Medical management - History of Present Illness Patient is a 71-year-old male with a past medical history significant for coronary disease status post PCI, essential hypertension, hyperlipidemia the presents a hospital secondary to left knee pain. Patient is scheduled for arthroscopic irrigation and debridement of his left knee with Dr. Gomes. Prior to his procedure patient was found to be in nature fibrillation with RVR. Heart rate was found to be in the 130s. The patient did not take his medications in the morning. Internal medicine was consulted for medical management. At bedside he continues complain of pain specifically in the left knee rates it a 9 out of 10 to get somewhat better with pain medication. He was receiving IV Dilaudid during my examination. Patient's vital signs currently during my examination 125/73, heart rate 114 inpatient been afebrile. CBC hemoglobin stable at 8.6 leukocytosis 11.0. BMP reviewed hyponatremia 1:30, creatinine 1.09 and C-reactive protein 13.2. TSH was within normal limits. Synovial fluid was analyzed showing synovial crystals. Past Medical History Past Medical History: Coronary Artery Disease (CAD), Chest Pain / Angina, Hyperlipidemia, Sleep Apnea/CPAP/BIPAP Additional Past Medical History / Comment(s): no CPAP used, History of Any Multi-Drug Resistant Organisms: None Reported Past Surgical History: Appendectomy, Back Surgery, Heart Catheterization With Stent, Orthopedic Surgery, Tonsillectomy Additional Past Surgical History / Comment(s): total 2 stents, rt elbow surgery, candelaria knee arthroscopy, l hand x2 Past Anesthesia/Blood Transfusion Reactions: No Reported Reaction Date of Last Stent Placement:: 10/2013 Past Psychological History: No Psychological Hx Reported Smoking Status: Never smoker Past Alcohol Use History: Occasional Past Drug Use History: None Reported - Past Family History Mother Family Medical History: Cancer Medications and Allergies Home Medications Medication Instructions Recorded Confirmed Type Aspirin [Adult Low Dose Aspirin EC] 81 mg PO DAILY 10/14/15 01/27/22 History Atorvastatin [Lipitor] 80 mg PO DAILY 10/14/15 01/27/22 History Metoprolol Tartrate 50 mg PO DAILY 10/14/15 01/27/22 History Nitroglycerin Sl Tabs [Nitrostat] 0.4 mg SUBLINGUAL DIRECTED PRN 10/14/15 01/27/22 History lisinopriL [Zestril] 10 mg PO DAILY 10/14/15 01/27/22 History Acetaminophen [Tylenol Extra 1,000 mg PO BID 01/27/22 01/27/22 History Strength] Acetaminophen/Diphenhydramine 1 tab PO HS PRN 01/27/22 01/27/22 History [Tylenol PM 500-25mg] Cetirizine HCl [Zyrtec] 10 mg PO HS 01/27/22 01/27/22 History Clopidogrel [Plavix] 75 mg PO DAILY 01/27/22 01/27/22 History Montelukast [Singulair] 10 mg PO DAILY 01/27/22 01/27/22 History Tadalafil [Cialis] 5 mg PO DAILY 01/27/22 01/27/22 History diphenhydrAMINE [Benadryl] 25 mg PO DAILY PRN 01/27/22 01/27/22 History methylPREDNISolone [Medrol Dose 0 mg PO DIRECTED 01/27/22 01/27/22 History Pack] Allergies Allergy/AdvReac Type Severity Reaction Status Date / Time cephalexin monohydrate Allergy Anaphylaxis Verified 01/27/22 13:01 [From [facility]] ciprofloxacin Allergy Anaphylaxis Verified 01/27/22 13:01 Physical Exam Vitals: Vital Signs Temp Pulse Resp BP Pulse Ox 01/28/22 12:00 97.5 F L 81 14 79/38 96 01/28/22 08:00 97.2 F L 114 H 16 125/73 96 01/28/22 04:00 98.1 F 110 H 18 118/70 95 01/28/22 01:17 95 18 01/27/22 23:39 95 18 122/74 95 01/27/22 20:00 98.2 F 88 16 109/67 98 01/27/22 18:13 98.0 F 80 18 111/63 99 01/27/22 17:31 89 16 111/68 98 01/27/22 16:31 92 16 101/58 97 01/27/22 15:31 99.2 F 104 H 16 126/69 98 Intake and Output 01/28/22 01/28/22 01/28/22 06:59 14:59 22:59 Intake Total 593.718 307.198 Output Total 800 Balance -206.282 307.198 Intake: Intake, IV Titration 113.718 107.198 Amount Diltiazem 125 mg In 40 15 Sodium Chloride 0.9% 100 ml @ 5 MG/HR 5 mls/hr IV .Q24H [facility] Rx#:[id number] Heparin Sod,Pork in 0.45% 73.718 92.198 NaCl 25,000 unit In 0.45 % NaCl 1 250ml.bag @ 9. 542 UNITS/KG/HR 10 mls/hr IV .Q24H [facility] Rx#: [id number] Oral 480 200 Output: Urine 800 Gen. patient is awake alert oriented 3 Cardio normal S1/S2 irregularly irregular Respiratory no wheezing or rhonchi appreciated Abdomen soft, nontender Extremity pitting edema noted however unable to press down as the patient jumped up and pain Muscle skeletal cannot be assessed due to severe pain Neuro patient is awake alert oriented 3. Slightly uncomfortable. Results CBC & Chem 7: 01/28/22 02:35 01/28/22 02:35 Labs: Abnormal Lab Results - Last 24 Hours (Table) 01/27/22 01/27/22 01/27/22 Range/Units 14:38 14:38 14:38 WBC 13.3 H (3.8-10.6) k/uL RBC 2.90 L (4.30-5.90) m/uL Hgb 9.5 L (13.0-17.5) gm/dL Hct 28.4 L (39.0-53.0) % Neutrophils # 10.7 H (1.3-7.7) k/uL ESR (0-15) mm/hr APTT 20.6 L (22.0-30.0) sec Sodium 134 L (137-145) mmol/L BUN 34 H (9-20) mg/dL Glucose (74-99) mg/dL C-Reactive Protein (<1.0) mg/dL Synovial Crystals (None Seen) 01/27/22 01/27/22 01/28/22 Range/Units 14:55 21:21 02:35 WBC 11.0 H (3.8-10.6) k/uL RBC 2.60 L (4.30-5.90) m/uL Hgb 8.6 L (13.0-17.5) gm/dL Hct 25.9 L (39.0-53.0) % Neutrophils # 7.8 H (1.3-7.7) k/uL ESR (0-15) mm/hr APTT 37.4 H (22.0-30.0) sec Sodium (137-145) mmol/L BUN (9-20) mg/dL Glucose (74-99) mg/dL C-Reactive Protein (<1.0) mg/dL Synovial Crystals Seen A (None Seen) 01/28/22 01/28/22 01/28/22 Range/Units 02:35 02:35 09:55 WBC (3.8-10.6) k/uL RBC (4.30-5.90) m/uL Hgb (13.0-17.5) gm/dL Hct (39.0-53.0) % Neutrophils # (1.3-7.7) k/uL ESR (0-15) mm/hr APTT 35.5 H 53.8 H (22.0-30.0) sec Sodium 130 L (137-145) mmol/L BUN 32 H (9-20) mg/dL Glucose 113 H (74-99) mg/dL C-Reactive Protein (<1.0) mg/dL Synovial Crystals (None Seen) 01/28/22 01/28/22 Range/Units 12:19 12:19 WBC (3.8-10.6) k/uL RBC (4.30-5.90) m/uL Hgb (13.0-17.5) gm/dL Hct (39.0-53.0) % Neutrophils # (1.3-7.7) k/uL ESR 108 H (0-15) mm/hr APTT (22.0-30.0) sec Sodium (137-145) mmol/L BUN (9-20) mg/dL Glucose (74-99) mg/dL C-Reactive Protein 13.2 H (<1.0) mg/dL Synovial Crystals (None Seen) Microbiology - Last 24 Hours (Table) 01/27/22 14:55 Gram Stain - Preliminary Knee - Left Wound Culture - Preliminary 01/27/22 14:55 Fungal Culture - Preliminary Knee - Left 01/27/22 14:55 Anaerobic Culture - Preliminary Knee - Left Assessment and Plan Assessment: Assessment: #1 left knee pain scheduled for arthroscopic irrigation and debridement #2 paroxysmal nature fibrillation with RVR #3 coronary disease status post PCI #4 essential hypertension #5 hyperlipidemia #6 hyponatremia can be secondary to SIADH (pain) versus dehydration Plan -Aspiration/fall precaution -Continue pain medications when necessary as per primary team -CHADSVASC >2 apparently started on IV heparin -Maintain heart rate less than 110 bpm -Patient started on diltiazem drip. Target heart rate less than 110 -2-D echocardiogram -Risk stratify with TSH, lipid panel and hemoglobin A1c -Cardiology on board -DVT prophylaxis currently on heparin drip -Synovial fluid analyzed showing crystals started on colchicine
--- NOTE | 2022-01-28 22:17 | P.CONS ---
History of Present Illness - Reason for Consult Consult date: 01/28/22 Left knee ID management/effusion Requesting physician: Biju Pascual - Chief Complaint Left knee pain 1 week - History of Present Illness Patient is a 71-year-old male with a past medical history significant for osteoarthritis in this patient who did have a intra-articular gel injection with the last was about a week ago patient mention he did have significant l ocking of his knee and did receive a dose of steroid injection into the knee however the patient could have gone with a left knee describing it to be pain and locking out and unable to bear any weight on it describing the pain to be sharp intensity is almost 10 out of 10 in severity with associated swelling but no redness and no drainage patient denies any fever did have some chills though patient was electively brought to the hospital for the left knee washout however the patient was noticed to be in A. fib procedure was postponed and patient did have aspirate of the left knee infectious disease was consulted for further management of antibiotic patient did have vital of 13.3 with a left shift creatinine has been abnormal, patient left knee aspirate was cloudy with 50,000 nucleated cells 92% PMNs cultures are currently pending infectious disease was consulted for further management of antibiotics Review of Systems Positive point has been mentioned in the HPI rest of the systems are negative Past Medical History Past Medical History: Coronary Artery Disease (CAD), Chest Pain / Angina, Hyperlipidemia, Sleep Apnea/CPAP/BIPAP Additional Past Medical History / Comment(s): no CPAP used, History of Any Multi-Drug Resistant Organisms: None Reported Past Surgical History: Appendectomy, Back Surgery, Heart Catheterization With Stent, Orthopedic Surgery, Tonsillectomy Additional Past Surgical History / Comment(s): total 2 stents, rt elbow surgery, candelaria knee arthroscopy, l hand x2 Past Anesthesia/Blood Transfusion Reactions: No Reported Reaction Date of Last Stent Placement:: 10/2013 Past Psychological History: No Psychological Hx Reported Smoking Status: Never smoker Past Alcohol Use History: Occasional Past Drug Use History: None Reported - Past Family History Mother Family Medical History: Cancer Medications and Allergies Home Medications Medication Instructions Recorded Confirmed Type Aspirin [Adult Low Dose Aspirin EC] 81 mg PO DAILY 10/14/15 01/27/22 History Atorvastatin [Lipitor] 80 mg PO DAILY 10/14/15 01/27/22 History Metoprolol Tartrate 50 mg PO DAILY 10/14/15 01/27/22 History Nitroglycerin Sl Tabs [Nitrostat] 0.4 mg SUBLINGUAL DIRECTED PRN 10/14/15 01/27/22 History lisinopriL [Zestril] 10 mg PO DAILY 10/14/15 01/27/22 History Acetaminophen [Tylenol Extra 1,000 mg PO BID 01/27/22 01/27/22 History Strength] Acetaminophen/Diphenhydramine 1 tab PO HS PRN 01/27/22 01/27/22 History [Tylenol PM 500-25mg] Cetirizine HCl [Zyrtec] 10 mg PO HS 01/27/22 01/27/22 History Clopidogrel [Plavix] 75 mg PO DAILY 01/27/22 01/27/22 History Montelukast [Singulair] 10 mg PO DAILY 01/27/22 01/27/22 History Tadalafil [Cialis] 5 mg PO DAILY 01/27/22 01/27/22 History diphenhydrAMINE [Benadryl] 25 mg PO DAILY PRN 01/27/22 01/27/22 History methylPREDNISolone [Medrol Dose 0 mg PO DIRECTED 01/27/22 01/27/22 History Pack] Allergies Allergy/AdvReac Type Severity Reaction Status Date / Time cephalexin monohydrate Allergy Anaphylaxis Verified 01/27/22 13:01 [From [facility]] ciprofloxacin Allergy Anaphylaxis Verified 01/27/22 13:01 Physical Exam Vitals: Vital Signs Temp Pulse Resp BP Pulse Ox 01/28/22 04:00 98.1 F 110 H 18 118/70 95 01/28/22 01:17 95 18 01/27/22 23:39 95 18 122/74 95 01/27/22 20:00 98.2 F 88 16 109/67 98 01/27/22 18:13 98.0 F 80 18 111/63 99 01/27/22 17:31 89 16 111/68 98 01/27/22 16:31 92 16 101/58 97 01/27/22 15:31 99.2 F 104 H 16 126/69 98 01/27/22 15:03 118 H 16 137/78 98 01/27/22 13:15 98.2 F 122 H 16 145/86 97 Intake and Output 01/27/22 01/28/22 01/28/22 22:59 06:59 14:59 Intake Total 407 593.718 92.198 Output Total 800 Balance 407 -206.282 92.198 Intake: Intake, IV Titration 77 113.718 92.198 Amount Diltiazem 125 mg In 40 Sodium Chloride 0.9% 100 ml @ 5 MG/HR 5 mls/hr IV .Q24H [facility] Rx#:[id number] Heparin Sod,Pork in 0.45% 77 73.718 92.198 NaCl 25,000 unit In 0.45 % NaCl 1 250ml.bag @ 9. 542 UNITS/KG/HR 10 mls/hr IV .Q24H [facility] Rx#: [id number] Oral 330 480 Output: Urine 800 Other: Weight 104.8 kg GENERAL DESCRIPTION: Elderly male lying in bed, no distress. No tachypnea or accessory muscle of respiration use. HEENT: Shows Pallor , no scleral icterus. Oral mucous membrane is dry. No pharyngeal erythema or thrush NECK: Trachea central, no thyromegaly. LUNGS: Unlabored breathing. Clear to auscultation anteriorly. No wheeze or crackle. HEART: S1, S2, regular rate and rhythm. No loud murmur ABDOMEN: Soft, no tenderness , guarding or rigidity, no organomegaly EXTREMITIES: Left knee with swelling no redness but tender to touch SKIN: No rash, no masses palpable. NEUROLOGICAL: The patient is awake, alert, oriented x3, mood and affect normal. Results CBC & Chem 7: 01/28/22 02:35 01/28/22 02:35 Labs: Abnormal Lab Results - Last 24 Hours (Table) 01/27/22 01/27/22 01/27/22 Range/Units 13:52 14:38 14:38 WBC 13.3 H (3.8-10.6) k/uL RBC 2.90 L (4.30-5.90) m/uL Hgb 9.5 L (13.0-17.5) gm/dL Hct 28.4 L (39.0-53.0) % Neutrophils # 10.7 H (1.3-7.7) k/uL APTT 20.6 L (22.0-30.0) sec Sodium (137-145) mmol/L BUN (9-20) mg/dL Glucose (74-99) mg/dL POC Glucose (mg/dL) 111 H (75-99) mg/dL Synovial Crystals (None Seen) 01/27/22 01/27/22 01/27/22 Range/Units 14:38 14:55 21:21 WBC (3.8-10.6) k/uL RBC (4.30-5.90) m/uL Hgb (13.0-17.5) gm/dL Hct (39.0-53.0) % Neutrophils # (1.3-7.7) k/uL APTT 37.4 H (22.0-30.0) sec Sodium 134 L (137-145) mmol/L BUN 34 H (9-20) mg/dL Glucose (74-99) mg/dL POC Glucose (mg/dL) (75-99) mg/dL Synovial Crystals Seen A (None Seen) 01/28/22 01/28/22 01/28/22 Range/Units 02:35 02:35 02:35 WBC 11.0 H (3.8-10.6) k/uL RBC 2.60 L (4.30-5.90) m/uL Hgb 8.6 L (13.0-17.5) gm/dL Hct 25.9 L (39.0-53.0) % Neutrophils # 7.8 H (1.3-7.7) k/uL APTT 35.5 H (22.0-30.0) sec Sodium 130 L (137-145) mmol/L BUN 32 H (9-20) mg/dL Glucose 113 H (74-99) mg/dL POC Glucose (mg/dL) (75-99) mg/dL Synovial Crystals (None Seen) 01/28/22 Range/Units 09:55 WBC (3.8-10.6) k/uL RBC (4.30-5.90) m/uL Hgb (13.0-17.5) gm/dL Hct (39.0-53.0) % Neutrophils # (1.3-7.7) k/uL APTT 53.8 H (22.0-30.0) sec Sodium (137-145) mmol/L BUN (9-20) mg/dL Glucose (74-99) mg/dL POC Glucose (mg/dL) (75-99) mg/dL Synovial Crystals (None Seen) Microbiology - Last 24 Hours (Table) 01/27/22 14:55 Gram Stain - Preliminary Knee - Left Wound Culture - Preliminary 01/27/22 14:55 Fungal Culture - Preliminary Knee - Left 01/27/22 14:55 Anaerobic Culture - Preliminary Knee - Left Assessment and Plan (1) Left knee pain Current Visit: Yes Status: Acute Code(s): M25.562 - PAIN IN LEFT KNEE SNOMED Code(s): 5079300962 Plan: 1patient presented to hospital with a left knee pain and locking not in this patient did have a multiple injection to the left knee recently about a week ago and this patient did have significant cloudy aspirate of the left knee with elevated white count high clinical suspicious for possible septic arthritis however the patient did have a positive crystals on analysis with a question of possible gouty arthritis however the patient do not have any history of gout in the past. 2we will check a uric acid level. 3we will check a CRP and sed rate. 4vancomycin pharmacy to dose target trough of 15 while watching kidney function and vancomycin trough closely. 5patient with multiple antibiotic allergies that would limit the number of antibiotics safe to use We will follow on clinical condition and cultures to further adjust medication if needed Thank you for this consultation will follow this patient along with you Time with Patient: Greater than 30
[2022-01-29] MEDS: VANCOMYCIN 1,750 MG in SODIUM CHLORIDE 0.9% 500 ML 500 ML IVPB SCH ×2 (02:44→17:35)
[2022-01-29] MEDS: HYDROmorphone 1 MG/ML 1 ML SYRINGE IVP PRN ×5 (02:44→22:33)
[2022-01-29] MEDS: METOPROLOL TARTRATE 50 MG TAB PO SCH ×2 (06:34→19:23)
[2022-01-29] MEDS ORDERED: ONDANSETRON 4 MG/2 ML VIAL ONE (06:54)
[2022-01-29] MEDS ORDERED: IV FLUID CONTINUATION 900 ML IV ONE (07:03)
[2022-01-29] MEDS ORDERED: PHENYLEPHRINE-0.9% NACL SYG 1,000 MCG/10 ML SYRINGE ONE (07:10)
[2022-01-29] MEDS ORDERED: PROPOFOL 10 MG/ML 20 ML VIAL IV ONE (07:10)
[2022-01-29] MEDS ORDERED: fentaNYL (PF) 50 MCG/ML 2 ML AMP ONE (07:10)
[2022-01-29] MEDS ORDERED: MIDAZOLAM 2 MG/2 ML VIAL ONE (07:10)
[2022-01-29] MEDS ORDERED: LIDOCAINE 2% INJ 20 MG/ML (2 ML VIAL) ONE (07:10)
[2022-01-29] MEDS ORDERED: SUCCINYLCHOLINE CHLORIDE 100 MG/5 ML SYR IV ONE (07:10)
[2022-01-29] MEDS ORDERED: ONDANSETRON 4 MG/2 ML VIAL IVP ONE (07:15)
[2022-01-29] MEDS ORDERED: SODIUM CHLORIDE 0.9% 1,000 ML IV ONE (07:58)
--- NOTE | 2022-01-29 08:14 | P.OP ---
Date of Procedure: 01/29/22 Preoperative Diagnosis: Left knee synovitis/gout/possible septic arthritis Postoperative Diagnosis: Same Procedure(s) Performed: Arthroscopic irrigation and debridement left knee/synovectomy of the medial, lateral, and patellofemoral compartments Anesthesia: MESSI Surgeon: Alonso Monaco Estimated Blood Loss (ml): 10 Pathology: none sent Condition: stable Disposition: PACU Indications for Procedure: The patient's a 71-year-old male who presents with progressive left knee pain d espite attempted conservative measures. Joint aspiration showed significant white blood cell count in addition to uric acid crystals. A discussion of the risks and benefits of operative intervention was made with the patient and his family. He opted to proceed. Operative risks to include possible need for subsequent procedures was discussed. Informed consent was obtained. Operative Findings: As below Description of Procedure: The patient was brought to the operating room, and after induction of general anesthesia examined the left knee. Collaterals were stable, Zoie was negative, and posterior drawer was negative. The left lower extremity was prepped and draped in a normal fashion. A superior lateral portal was made through a 3 mm skin incision superior and lateral to the patella. This was used for outflow. A large cloudy effusion was encountered. A lateral portal was made through a 5 mm vertical skin incision lateral to the patella tendon above the joint line. Diagnostic arthroscopy was performed. On inspection of the medial compartment, grade 3-4 chondral changes were noted diffusely. There was marked synovitis involving the anterior medial compartment there was debrided with a motorized shaver. On inspection of the notch, the anterior cruciate ligament appeared to be intact. On inspection of the lateral compartment, again there was marked synovitis debrided with a motorized shaver. On inspection of the patellofemoral articulation, grade 3-4 chondral changes were noted diffusely. Marked synovitis was debrided with a motorized shaver. I irrigated the knee with 9 L of fluid.. The gutters were clear debris. The portals were closed loosely with Steri-Strips. A sterile dressing was applied in addition to a compression stocking. The patient was awoken from general anesthesia and transferred to recovery room in good condition. Blood loss was estimated at 10 mL. No complications were incurred.
[2022-01-29] MEDS ORDERED: HYDROmorphone 0.5 MG/0.5 ML SYRINGE IVP ONE ×2 (08:24→08:37)
[2022-01-29] MEDS: lisinopriL 10 MG TAB PO SCH (09:46)
[2022-01-29] MEDS: ATORVASTATIN 80 MG TAB PO SCH (09:46)
[2022-01-29] MEDS: COLCHICINE 0.6 MG EACH PO SCH (09:46)
--- NOTE | 2022-01-29 10:00 | P.PN ---
Subjective Progress Note Date: 01/29/22 Hospital course: Patient is a very pleasant 71-year-old male with a past medical history of CAD status post stenting on Plavix, hypertension, hyperlipidemia, and COPD. He is currently admitted under orthopedic surgery team secondary to left knee synovitis and possible septic arthritis. Patient underwent left knee aspiration of synovial fluid on 01/27/22 and on 01/28/22 patient was found to be in new-onset A. fib RVR with EKG revealing atrial fibrillation with a controlled ventricular rate of 97 bpm. We were consulted for medical management throughout patient's hospitalization. Cardiology also consulted for new onset atrial fibrillation with RVR and infectious disease was consulted secondary to concerns of septic arthritis. Patient underwent arthroscopic irrigation and debridement of left knee this morning. He was placed on heparin infusion for new onset atrial fibrillation with RVR which is currently held along with Plavix secondary to surgical procedure. Patient on IV antibiotic vancomycin for treatment of left knee synovitis pending further cultures and septic arthritis can't be ruled out. Physical exam: Patient seen and fully evaluated at bedside this morning. Patient reports mild to moderate pain to left knee at this time, he does state it is improved with IV pain medication. Patient Vital signs reviewed and stable. General: Nontoxic, no distress and appears stated age. Derm: Skin warm and dry, normal coloration for ethnicity. Head: Atraumatic, normocephalic and symmetric. Eyes: EOMs intact, no lid lag, and anicteric sclera Mouth: no lip lesions, mucus membranes moist Cardiovascular: Irregularly irregular with normal S1S2, no murmur, positive posterior tibial pulses bilaterally, and cap refill < 2 seconds. Lungs: Respirations even, regular, and unlabored on room air. Lungs CTA bilaterally, no rhonchi, no rales, no wheezing, and no accessory muscle usage. Abdominal: soft, nontender to palpation, no guarding, no appreciable organom egaly Ext: ROM intact. No gross muscle atrophy, no edema, no contractures. Left lower extremity/knee wrapped with postsurgical dressing and Uriel wrap, dressing is clean, dry, and intact Neuro: Speech clear, face symmetrical and CN II-XII grossly intact with no noted focal neuro deficits Psych: Alert and oriented to person, place, time, and situation. Appropriate and pleasant affect. Assessment and Plan of Care: Left knee synovitis, rule out septic arthritis -Left knee aspiration of synovial fluid was completed on 01/27/22 -Patient underwent I&D of left knee on 01/29/22 -Synovial fluid positive for crystals, patient was started on colchicine. -Cultures pending. -Inflammatory markers elevated with ESR 108 and CRP 13.2. Mild leukocytosis with WBC count of 11.0. -IV antibiotics: Vancomycin pending culture results and further recommendations by infectious disease. -Symptomatic care and pain management. -Management per primary admitting orthopedic surgery team including DVT prophylaxis, pain management, New-onset atrial fibrillation with RVR -[id number] score 3. -Echocardiogram showing normal EF 50-55% with no reported significant structural or valvular abnormalities. -Heparin was held secondary to surgical procedure completed this morning, recommend resumption of anticoagulation as soon as cleared by primary admitting orthopedic surgery team. Normocytic normochromic anemia -Hemoglobin 8.6, no evidence of bleeding at this time. -We will obtain an anemia panel and continue to monitor closely with repeat a.m. labs. History of CAD status post stenting -Plavix currently held per recommendations of orthopedic surgery team. Hypertension -Monitor vital signs and continue daily medication regimen with metoprolol and lisinopril. Thank you for allowing us to participate in the care of this pleasant patient. Do not hesitate to contact us with questions. Someone can be reached from the [facility] hospitalist group all hours of the day at [phone] or via perfect serve. Objective - Vital Signs Vital signs: Vital Signs Temp 98 F 01/29/22 08:14 Pulse 96 01/29/22 09:00 Resp 16 01/29/22 09:00 BP 127/71 01/29/22 09:00 Pulse Ox 96 01/29/22 09:00 FiO2 Intake & Output 01/28/22 01/29/22 01/29/22 18:59 06:59 18:59 Intake Total 1927.198 165.06 1000 Output Total 630 1725 10 Balance 1297.198 -1559.94 990 Intake: IV 1000 Intake, IV Titration 747.198 165.06 Amount Diltiazem 125 mg In 155 Sodium Chloride 0.9% 100 ml @ 5 MG/HR 5 mls/hr IV .Q24H [facility] Rx#:[id number] Heparin Sod,Pork in 0.45% 92.198 165.06 NaCl 25,000 unit In 0.45 % NaCl 1 250ml.bag @ 9. 542 UNITS/KG/HR 10 mls/hr IV .Q24H [facility] Rx#: [id number] Vancomycin 1,750 mg In 500 Sodium Chloride 0.9% 500 ml 500 ml @ 167 mls/hr IVPB Q12H [facility] Rx#: [id number] Oral 1180 Output: Urine 630 1725 Estimated Blood Loss 10 - Labs CBC & Chem 7: 01/28/22 02:35 01/29/22 10:26 Labs: Abnormal Lab Results - Last 24 Hours (Table) 01/28/22 01/28/22 01/28/22 Range/Units 09:55 12:19 12:19 ESR 108 H (0-15) mm/hr APTT 53.8 H (22.0-30.0) sec C-Reactive Protein 13.2 H (<1.0) mg/dL Microbiology - Last 24 Hours (Table) 01/27/22 14:55 Gram Stain - Preliminary Knee - Left Wound Culture - Preliminary
[2022-01-29 11:18] LABS: African American GFR (CKD) >90 (>60 ml/min/1.73 sqM); Anion Gap 6 mmol/L; Blood Urea Nitrogen 20 mg/dL (9-20); Calcium 7.9 mg/dL (8.4-10.2); Carbon Dioxide 24 mmol/L (22-30); Chloride 100 mmol/L (98-107); Glucose 107 mg/dL (74-99); Non-African American GFR(CKD) 80 (>60 ml/min/1.73 sqM); Potassium 4.6 mmol/L (3.5-5.1); Sodium 130 mmol/L (137-145); Uric Acid 5.9 mg/dL (3.5-8.5)
--- NOTE | 2022-01-29 12:26 | P.PN ---
Subjective Progress Note Date: 01/29/22 Patient is seen resting comfortably in bed after undergoing incision and drainage of his knee today. Heparin drip has been discontinued. Will check coverage for Eliquis for anticoagulation and start tomorrow if covered. Patient's heart rate has been elevated in the low 100s. Will increase Lopressor to 100 mg twice a day. Cardizem has been discontinued. We will decrease lisinopril to 5 mg to prevent hypotension Objective - Vital Signs Vital signs: Vital Signs Temp 98.1 F 01/29/22 11:00 Pulse 99 01/29/22 12:00 Resp 18 01/29/22 12:00 BP 108/69 01/29/22 12:00 Pulse Ox 95 01/29/22 12:00 FiO2 Intake & Output 01/28/22 01/29/22 01/29/22 18:59 06:59 18:59 Intake Total 1927.198 165.06 1000 Output Total 630 1725 460 Balance 1297.198 -1559.94 540 Intake: IV 1000 Intake, IV Titration 747.198 165.06 Amount Diltiazem 125 mg In 155 Sodium Chloride 0.9% 100 ml @ 5 MG/HR 5 mls/hr IV .Q24H [facility] Rx#:[id number] Heparin Sod,Pork in 0.45% 92.198 165.06 NaCl 25,000 unit In 0.45 % NaCl 1 250ml.bag @ 9. 542 UNITS/KG/HR 10 mls/hr IV .Q24H [facility] Rx#: [id number] Vancomycin 1,750 mg In 500 Sodium Chloride 0.9% 500 ml 500 ml @ 167 mls/hr IVPB Q12H [facility] Rx#: [id number] Oral 1180 Output: Urine 630 1725 450 Estimated Blood Loss 10 - Exam PHYSICAL EXAM: VITAL SIGNS: Reviewed. GENERAL: Well-developed in no acute distress. HEENT: Head is normocephalic. Pupils are equal, round. Sclerae anicteric. Mucous membranes of the mouth are moist. NECK: Supple. No JVD or thyromegaly RESPIRATORY: Respirations even and unlabored. Lungs diminished to auscultation bilaterally. CARDIO: Regular rate and rhythm. S1 and S2 heard. No murmur or gallops. EXTREMITIES: Normal range of motion. No clubbing or cyanosis. Peripheral pulses intact. Negative for bilateral lower extremity edema NEURO: Orientated to person, time, mood is appropriate - Labs CBC & Chem 7: 01/28/22 02:35 01/29/22 10:26 Labs: Abnormal Lab Results - Last 24 Hours (Table) 01/28/22 01/28/22 01/29/22 Range/Units 12:19 12:19 10:26 ESR 108 H (0-15) mm/hr Sodium 130 L (137-145) mmol/L Glucose 107 H (74-99) mg/dL Calcium 7.9 L (8.4-10.2) mg/dL C-Reactive Protein 13.2 H (<1.0) mg/dL Microbiology - Last 24 Hours (Table) 01/27/22 14:55 Gram Stain - Preliminary Knee - Left Wound Culture - Preliminary Assessment and Plan Assessment: New onset paroxysmal atrial fibrillation with RVR -[id number] score 3 Left knee pain with planned arthroscopic irrigation and debridement of his left knee with Dr. Monaco, s/p left knee aspiration Coronary artery disease s/p PCI proximal LAD most recently in 04/2021 and PCI proximal PCI 2013 Hypertension Dyslipidemia Plan: Check coverage for Eliquis for anticoagulation to be started tomorrow Increase Lopressor to 100 mg twice a day Decrease lisinopril to 5 mg daily Continue with all other current cardiac medications Continue with telemetry monitoring Further recommendations based on clinical course The above impression and plan of care have been discussed and directed by the signing physician. Sophia Macario, nurse practitioner, acting as scribe for signing physician.
--- NOTE | 2022-01-29 15:44 | CDI ---
Non-excisional debridement with washing. The joint was debrided in this fashion. Synovial tissue was debrided with a motorized shaver. Documentation Clarification Form Date: 01/29/2022 03:12:41 PM From: Beth Hendricks RN, CCDS Admit Date: 01/27/2022 02:19:00 PM Patient Name: Abhishek Gabriel Visit Number: [id number] Discharge Date: ATTENTION: The Clinical Documentation Specialists (CDI) and [facility] Coding Staff appreciate your assistance in clarifying documentation. Please respond to the clarification below the line at the bottom and electronically sign. The CDI & [facility] Coding staff will review the response and follow-up if needed. Please note: Queries are made part of the Legal Health Record. If you have any questions, please contact the author of this message via ITS. Dr. Alonso Mercado debridement is documented in the procedure report on 01/29/22. Additional clarification regarding the procedure technique is requested. History/Risk Factors: left knee synovitis, gout, septic arthritis, CAD, Clinical Indicators: 71-year-old male present with progressive left knee pain. He had previous viscosupplementation of his left knee on 01/05/22. 01/29 procedure note: There was marked synovitis involving the anterior medial compartment there was debrided with a motorized shaver. The lateral compartment, and patellofemoral articulation, grade 3-4 chondral changes were noted diffusely marked synovitis was debrided with a motorized shaver. Treatment: Arthroscopic irrigation and debridement left knee/synovectomy Vancomycin HCL 1,750 MG IVPB Q 12 HRS (PTD Colchicine 0.6 MG PO Daily Please further clarify the technique used in procedure performed: [ ] Excisional debridement (the removal of necrotic, devitalized tissue or slough by means of cutting away of tissue) [ ] Non-excisional debridement (the removal of necrotic, devitalized tissue or slough by means of flushing, brushing, or washing. (Irrigation) [ ] Other; please specify [ ] Unable to determine Five elements required for accurate and compliant documentation of a debridement: Technique used (e.g., excisional, excised, cutting, brushing, jet lavage etc.) Instrument(s) used (e.g., scalpel, curette, etc.) Nature of the tissue removed (e.g., necrotic, devitalized tissues, non-viable tissue, etc.) Appearance and size of the wound (e.g., down to fresh bleeding tissue, 7cm x 10cm, etc.) Depth of the debridement* (e.g., skin, subcutaneous tissue, fascia, muscle, bone, etc.) (Template Last Revised: October 2020) MTDD
[2022-01-29] MEDS: HYDROcodone/APAP 7.5-325MG 1 EACH TAB PO PRN ×2 (17:34→22:33)
[2022-01-30] MEDS: HYDROmorphone 1 MG/ML 1 ML SYRINGE IVP PRN ×3 (03:06→16:49)
[2022-01-30] MEDS: VANCOMYCIN 1,750 MG in SODIUM CHLORIDE 0.9% 500 ML 500 ML IVPB SCH ×2 (03:06→16:48)
[2022-01-30] MEDS: HYDROcodone/APAP 7.5-325MG 1 EACH TAB PO PRN ×3 (05:47→20:06)
[2022-01-30] MEDS: METOPROLOL TARTRATE 50 MG TAB PO SCH ×2 (08:39→20:06)
[2022-01-30] MEDS: COLCHICINE 0.6 MG EACH PO SCH (08:39)
[2022-01-30] MEDS: lisinopriL 5 MG TAB PO SCH (08:39)
[2022-01-30] MEDS: ATORVASTATIN 80 MG TAB PO SCH (08:39)
[2022-01-30 10:14] LABS: HCT 24.3 % (39.0-53.0); HGB 8.2 gm/dL (13.0-17.5); MCH 33.3 pg (25.0-35.0); MCHC 33.7 g/dL (31.0-37.0); MCV 98.7 fL (80.0-100.0); Mean Platelet Volume 7.4; Platelet Count 387 k/uL (150-450); RBC 2.46 m/uL (4.30-5.90); RDW 12.5 % (11.5-15.5); WBC 11.2 k/uL (3.8-10.6)
[2022-01-30 10:38] LABS: Albumin 2.8 g/dL (3.5-5.0); Magnesium 1.9 mg/dL (1.6-2.3); Potassium 4.6 mmol/L (3.5-5.1); Total Bilirubin 0.5 mg/dL (0.2-1.3); Total Protein 5.4 g/dL (6.3-8.2)
[2022-01-30 10:39] LABS: Calcium 7.8 mg/dL (8.4-10.2)
[2022-01-30] MEDS ORDERED: CLOPIDOGREL 75 MG TAB PO STA (11:30)
--- NOTE | 2022-01-30 12:21 | US ---
EXAMINATION TYPE: US venous doppler duplex LE LT DATE OF EXAM: 01/30/2022 12:09 PM COMPARISON: NONE CLINICAL HISTORY: edema, left calf. SIDE PERFORMED: Left TECHNIQUE: The lower extremity deep venous system is examined utilizing real time linear array sonog katerina with graded compression, doppler sonography and color-flow sonography. VESSELS IMAGED: Common Femoral Vein Deep Femoral Vein Greater Saphenous Vein * Femoral Vein Popliteal Vein Small Saphenous Vein * Proximal Calf Veins (* superficial vessels) Left Leg: Negative for DVT IMPRESSION: No evidence for DVT at this time.
--- NOTE | 2022-01-30 12:50 | P.PN ---
Subjective Progress Note Date: 01/30/22 Patient seen resting in bed. He denies chest pain or increased shortness of breath. His only complaint is knee pain. Blood pressure and heart rate is well- controlled today. Will restart Eliquis for anticoagulation. Objective - Vital Signs Vital signs: Vital Signs Temp 98.4 F 01/30/22 08:00 Pulse 115 H 01/30/22 08:00 Resp 18 01/30/22 08:00 BP 110/66 01/30/22 08:00 Pulse Ox 99 01/30/22 08:00 FiO2 Intake & Output 01/29/22 01/30/22 01/30/22 18:59 06:59 18:59 Intake Total 1000 Output Total 660 700 Balance 340 -700 Intake: IV 1000 Output: Urine 650 700 Estimated Blood Loss 10 - Exam PHYSICAL EXAM: VITAL SIGNS: Reviewed. GENERAL: Well-developed in no acute distress. HEENT: Head is normocephalic. Pupils are equal, round. Sclerae anicteric. Mucous membranes of the mouth are moist. NECK: Supple. No JVD or thyromegaly RESPIRATORY: Respirations even and unlabored. Lungs diminished to auscultation bilaterally. CARDIO: Regular rate and rhythm. S1 and S2 heard. No murmur or gallops. EXTREMITIES: Normal range of motion. No clubbing or cyanosis. Peripheral pulses intact. Negative for bilateral lower extremity edema NEURO: Orientated to person, time, mood is appropriate - Labs CBC & Chem 7: 01/30/22 09:51 01/30/22 09:51 Labs: Abnormal Lab Results - Last 24 Hours (Table) 01/30/22 01/30/22 Range/Units 09:51 09:51 WBC 11.2 H (3.8-10.6) k/uL RBC 2.46 L (4.30-5.90) m/uL Hgb 8.2 L (13.0-17.5) gm/dL Hct 24.3 L (39.0-53.0) % Sodium 127 L (137-145) mmol/L BUN 21 H (9-20) mg/dL Glucose 112 H (74-99) mg/dL Calcium 7.8 L (8.4-10.2) mg/dL Total Protein 5.4 L (6.3-8.2) g/dL Albumin 2.8 L (3.5-5.0) g/dL Microbiology - Last 24 Hours (Table) 01/27/22 14:55 Anaerobic Culture - Preliminary Knee - Left 01/27/22 14:55 Gram Stain - Final Knee - Left Wound Culture - Final 01/28/22 12:19 Blood Culture - Preliminary Blood No Growth after 24 hours Assessment and Plan Assessment: New onset paroxysmal atrial fibrillation with RVR -[id number] score 3 Left knee pain with planned arthroscopic irrigation and debridement of his left knee with Dr. Monaco, s/p left knee aspiration Coronary artery disease s/p PCI proximal LAD most recently in 04/2021 and PCI proximal PCI 2013 Hypertension Dyslipidemia Plan: Start Eliquis for anticoagulation continue Lopressor to 100 mg twice a day and lisinopril to 5 mg daily Continue with all other current cardiac medications Continue with telemetry monitoring Further recommendations based on clinical course The above impression and plan of care have been discussed and directed by the signing physician. Sophia Macario, nurse practitioner, acting as scribe for signing physician.
--- NOTE | 2022-01-30 13:22 | P.PN ---
Subjective Progress Note Date: 01/30/22 Hospital course: Patient is a very pleasant 71-year-old male with a past medical history of CAD status post stenting on Plavix, hypertension, hyperlipidemia, and COPD. He is currently admitted under orthopedic surgery team secondary to left knee synovitis and possible septic arthritis. Patient underwent left knee aspiration of synovial fluid on 01/27/22 and on 01/28/22 patient was found to be in new-onset A. fib RVR with EKG revealing atrial fibrillation with a controlled ventricular rate of 97 bpm. We were consulted for medical management throughout patient's hospitalization. Cardiology also consulted for new onset atrial fibrillation with RVR and infectious disease was consulted secondary to concerns of septic arthritis. Patient underwent arthroscopic irrigation and debridement of left knee this morning. He was placed on heparin infusion for new onset atrial fibrillation with RVR which is currently held along with Plavix secondary to surgical procedure. Patient on IV antibiotic vancomycin for treatment of left knee synovitis pending further cultures and septic arthritis can be ruled out. Gram stain is negative, aerobic and fungal cultures pending final results and blood culture showing no growth after 24 hours. Physical exam: Patient seen and fully evaluated at bedside this morning. Patient reports that he continues to have mild to moderate pain to left knee at this time, that does improve with current pain medication regimen. Patient underwent I&D yesterday. Dressing to left knee is in place and remains clean, dry, and intact. Patient with moderate 3+ pitting edema to left lower extremity. Nursing communication placed to elevate left lower extremity on pillows to assist with improvement. Morning labs reveal stable hemoglobin of 8.2, continued leukocytosis with WBC count of 11.2 and worsening hyponatremia with sodium of 127. Patient started on 0.9% normal saline at 75 miles per hour. We will continue to monitor sodium levels closely with repeat a.m. labs. Vital signs reviewed and stable. General: Nontoxic, no distress and appears stated age. Derm: Skin warm and dry, normal coloration for ethnicity. Head: Atraumatic, normocephalic and symmetric. Eyes: EOMs intact, no lid lag, and anicteric sclera Mouth: no lip lesions, mucus membranes moist Cardiovascular: Irregularly irregular with normal S1S2, no murmur, positive post erior tibial pulses bilaterally, and cap refill < 2 seconds. Lungs: Respirations even, regular, and unlabored on room air. Lungs CTA bilaterally, no rhonchi, no rales, no wheezing, and no accessory muscle usage. Abdominal: soft, nontender to palpation, no guarding, no appreciable organomegaly Ext: ROM intact. No gross muscle atrophy, no edema, no contractures. Left lower extremity/knee wrapped with postsurgical dressing and Uriel wrap, dressing is clean, dry, and intact Neuro: Speech clear, face symmetrical and CN II-XII grossly intact with no noted focal neuro deficits Psych: Alert and oriented to person, place, time, and situation. Appropriate and pleasant affect. Assessment and Plan of Care: Left knee synovitis, rule out septic arthritis -Left knee aspiration of synovial fluid was completed on 01/27/22 -Patient underwent I&D of left knee on 01/29/22 -Synovial fluid positive for crystals, patient was started on colchicine. -Cultures pending. Gram stain is negative. Blood cultures showing no growth 24 hours. -Inflammatory markers elevated with ESR 108 and CRP 13.2. Mild leukocytosis with WBC count of 11.0. -IV antibiotics: Vancomycin pending culture results and further recommendations by infectious disease. -Symptomatic care and pain management. -Management per primary admitting orthopedic surgery team including DVT prophylaxis, pain management, New-onset atrial fibrillation with RVR -[id number] score 3. -Echocardiogram showing normal EF 50-55% with no reported significant structural or valvular abnormalities. -Patient started anticoagulation with Eliquis today. Hyponatremia -Likely secondary to dehydration as patient was nothing by mouth for surgical procedure and reports limited oral intake yesterday after procedure and throughout the night. Patient placed on 0.9% normal saline at 75 mL per hour to provide gentle IV fluid hydration and we will continue to monitor closely with repeat a.m. labs. Normocytic normochromic anemia -Hemoglobin 8.2, no evidence of bleeding at this time. -We will obtain an anemia panel and continue to monitor closely with repeat a.m. labs. History of CAD status post stenting -Plavix currently held per recommendations of orthopedic surgery team. Hypertension -Monitor vital signs and continue daily medication regimen with metoprolol and lisinopril. Thank you for allowing us to participate in the care of this pleasant patient. Do not hesitate to contact us with questions. Someone can be reached from the [facility] hospitalist group all hours of the day at [phone] or via perfect serve. Objective - Vital Signs Vital signs: Vital Signs Temp 98.0 F 01/30/22 04:00 Pulse 92 01/30/22 04:00 Resp 16 01/30/22 04:00 BP 108/60 01/30/22 04:00 Pulse Ox 96 01/30/22 04:00 FiO2 Intake & Output 01/29/22 01/30/22 01/30/22 18:59 06:59 18:59 Intake Total 1000 Output Total 660 400 Balance 340 -400 Intake: IV 1000 Output: Urine 650 400 Estimated Blood Loss 10 - Labs CBC & Chem 7: 01/30/22 09:51 01/30/22 09:51 Labs: Abnormal Lab Results - Last 24 Hours (Table) 01/29/22 Range/Units 10:26 Sodium 130 L (137-145) mmol/L Glucose 107 H (74-99) mg/dL Calcium 7.9 L (8.4-10.2) mg/dL Microbiology - Last 24 Hours (Table) 01/27/22 14:55 Anaerobic Culture - Preliminary Knee - Left 01/27/22 14:55 Gram Stain - Final Knee - Left Wound Culture - Final 01/28/22 12:19 Blood Culture - Preliminary Blood No Growth after 24 hours
[2022-01-30] MEDS: DEXAMETHASONE SOD PHOSPHATE 4 MG/ML 1 ML VIAL IVP SCH ×3 (13:32→22:55)
[2022-01-30] MEDS: SODIUM CHLORIDE 0.9% 1,000 ML IV SCH (13:33)
[2022-01-30] MEDS: APIXABAN 5 MG TAB PO SCH ×2 (13:33→20:06)
--- NOTE | 2022-01-30 19:11 | P.PN ---
Subjective Progress Note Date: 01/30/22 Principal diagnosis: Left knee synovitis/gout Patient was seen at bedside this morning lying in semirecumbent position. Patient says he did attempt to get up with physical therapy yesterday, but it was very difficult to bear any weight on his left lower extremity due to the krupa n. Patient does note he has increased swelling now in the left ankle and foot. Patient says he does have increased pain whenever he moves his left lower extremity. Patient denies chest pain, fever, shortness breath, nausea, lying, change in vision, loss of bowel/bladder control. Objective - Vital Signs Vital signs: Vital Signs Temp 98.4 F 01/30/22 08:00 Pulse 115 H 01/30/22 08:00 Resp 18 01/30/22 08:00 BP 110/66 01/30/22 08:00 Pulse Ox 99 01/30/22 08:00 FiO2 Intake & Output 01/29/22 01/30/22 01/30/22 18:59 06:59 18:59 Intake Total 1000 Output Total 660 700 Balance 340 -700 Intake: IV 1000 Output: Urine 650 700 Estimated Blood Loss 10 - Exam Uriel bandage present over left knee. Uriel bandage was taken down as well as a dressing. Portal sites appear to be healing well. New dressing was placed over left knee. There is minimal swelling throughout left knee. There is more moderate edema along the left foot and ankle. Patient is very sensitive to the touch in the left lower extremity at the knee and distally. Patient is able to move left lower extremity albeit with a moderate amount of pain in the knee and ankle. Patient lacks about 20 of full extension in the left knee. Patient has full range of motion bilateral upper extremities and right lower extremity. Patient has good strength in bilateral upper extremities and right lower extremity. Neurovascular status intact. Radial pulses intact, 2+ bilaterally. Cap refill under 3 seconds in digits of the upper extremities. Negative Homans - Labs CBC & Chem 7: 01/30/22 09:51 01/30/22 09:51 Labs: Abnormal Lab Results - Last 24 Hours (Table) 01/30/22 01/30/22 Range/Units 09:51 09:51 WBC 11.2 H (3.8-10.6) k/uL RBC 2.46 L (4.30-5.90) m/uL Hgb 8.2 L (13.0-17.5) gm/dL Hct 24.3 L (39.0-53.0) % Sodium 127 L (137-145) mmol/L BUN 21 H (9-20) mg/dL Glucose 112 H (74-99) mg/dL Calcium 7.8 L (8.4-10.2) mg/dL Total Protein 5.4 L (6.3-8.2) g/dL Albumin 2.8 L (3.5-5.0) g/dL Microbiology - Last 24 Hours (Table) 01/27/22 14:55 Anaerobic Culture - Preliminary Knee - Left 01/27/22 14:55 Gram Stain - Final Knee - Left Wound Culture - Final 01/28/22 12:19 Blood Culture - Preliminary Blood No Growth after 24 hours Assessment and Plan Assessment: 1. Left knee synovitis/gout/possible septic arthritis Postoperative day #1 status post Arthroscopic irrigation and debridement left knee/synovectomy of the medial, lateral, and patellofemoral compartment Plan: 1. Left knee synovitis/gout/possible septic arthritis - surgery performed yesterday, , 01/29/2022 - Arthroscopic irrigation and debridement left knee/synovectomy of the medial, lateral, and patellofemoral compartment. Patient stable to assess morning. Venous Doppler ultrasound of left lower extremity ordered due to swelling in the left calf. Doppler was negative for DVT. Dressing was changed over left knee. Patient started on Decadron 4 mg every 6 hours. Continue colchicine. Patient is stable for discharge home from an orthopedic standpoint. recommend patient to follow up in outpatient setting in 2 weeks. 2. Appreciate medical management 3. Pain management - [place] 4. DVT prophylaxis -Eliquis 5. GI recs 6. PT/OT - weightbearing as tolerated with walker as needed Time with Patient: Less than 30
--- NOTE | 2022-01-30 22:11 | P.PN ---
Subjective Progress Note Date: 01/29/22 Principal diagnosis: Left knee pain questionably septic arthritis Patient is a 71-year-old male presenting to the hospital with acute left knee pain in this patient who recently did have injection to the left knee and there was concern for possible septic arthritis with the elevated white count on the knee aspirate, patient is status post left knee washout completed 0 01/29/2022. On today's evaluation that is, 01/29/2022 the patient remains to be afebrile has been complaining of pain to the left knee area along with swelling to the legs denies any chest pain or shortness of breath or cough no abdominal pain no diarrhea Objective - Vital Signs Vital signs: Vital Signs Temp 98.1 F 01/29/22 11:00 Pulse 99 01/29/22 12:00 Resp 18 01/29/22 12:00 BP 108/69 01/29/22 12:00 Pulse Ox 95 01/29/22 12:00 FiO2 Intake & Output 01/28/22 01/29/22 01/29/22 18:59 06:59 18:59 Intake Total 1927.198 165.06 1000 Output Total 630 1725 460 Balance 1297.198 -1559.94 540 Intake: IV 1000 Intake, IV Titration 747.198 165.06 Amount Diltiazem 125 mg In 155 Sodium Chloride 0.9% 100 ml @ 5 MG/HR 5 mls/hr IV .Q24H [facility] Rx#:[id number] Heparin Sod,Pork in 0.45% 92.198 165.06 NaCl 25,000 unit In 0.45 % NaCl 1 250ml.bag @ 9. 542 UNITS/KG/HR 10 mls/hr IV .Q24H [facility] Rx#: [id number] Vancomycin 1,750 mg In 500 Sodium Chloride 0.9% 500 ml 500 ml @ 167 mls/hr IVPB Q12H [facility] Rx#: [id number] Oral 1180 Output: Urine 630 1725 450 Estimated Blood Loss 10 - Exam GENERAL DESCRIPTION: An elderly male lying in bed in no distress RESPIRATORY SYSTEM: Unlabored breathing , decreased breath sounds at bases HEART: S1 S2 regular rate and rhythm , ABDOMEN: Soft , no tenderness EXTREMITIES: (With the swelling and left leg with the edema feet - Labs CBC & Chem 7: 01/30/22 09:51 01/30/22 09:51 Labs: Abnormal Lab Results - Last 24 Hours (Table) 01/29/22 Range/Units 10:26 Sodium 130 L (137-145) mmol/L Glucose 107 H (74-99) mg/dL Calcium 7.9 L (8.4-10.2) mg/dL Microbiology - Last 24 Hours (Table) 01/28/22 12:19 Blood Culture - Preliminary Blood No Growth after 24 hours 01/27/22 14:55 Gram Stain - Preliminary Knee - Left Wound Culture - Preliminary Assessment and Plan (1) Left knee pain Current Visit: Yes Status: Acute Code(s): M25.562 - PAIN IN LEFT KNEE SNOMED Code(s): 1474559252 Plan: 1patient presented to hospital with a left knee pain and locking not in this patient did have a multiple injection to the left knee recently about a week ago and this patient did have significant cloudy aspirate of the left knee with elevated white count high clinical suspicious for possible septic arthritis however the patient did have a positive crystals on analysis with a question of possible gouty arthritis however the patient do not have any history of gout in the past. 2patient uric acid came back normal 3patient CRP and sed rate are elevated. 4patient to continue with vancomycin pharmacy to dose target trough of 15 while watching kidney function and vancomycin trough closely while waiting for the cultures to finalize. Time with Patient: Less than 30
--- NOTE | 2022-01-30 22:13 | P.PN ---
Subjective Progress Note Date: 01/30/22 Principal diagnosis: Left knee pain questionably septic arthritis Patient is a 71-year-old male presenting to the hospital with acute left knee pain in this patient who recently did have injection to the left knee and there was concern for possible septic arthritis with the elevated white count on the knee aspirate, patient is status post left knee washout completed 0 01/29/2022. On today's evaluation that is, 01/30/2022 the patient continues to be afebrile , the patient continued to complaining of pain to the left knee area however no worsening still has significant swelling to the legs, the patient denies any chest pain or shortness of breath or cough no abdominal pain no diarrhea Objective - Vital Signs Vital signs: Vital Signs Temp 98.4 F 01/30/22 08:00 Pulse 115 H 01/30/22 08:00 Resp 18 01/30/22 08:00 BP 110/66 01/30/22 08:00 Pulse Ox 99 01/30/22 08:00 FiO2 Intake & Output 01/29/22 01/30/22 01/30/22 18:59 06:59 18:59 Intake Total 1000 Output Total 660 700 Balance 340 -700 Intake: IV 1000 Output: Urine 650 700 Estimated Blood Loss 10 - Exam GENERAL DESCRIPTION: An elderly male lying in bed in no distress RESPIRATORY SYSTEM: Unlabored breathing , decreased breath sounds at bases HEART: S1 S2 regular rate and rhythm , ABDOMEN: Soft , no tenderness EXTREMITIES: Left knee With the swelling but no redness and left leg with 2+ edema feet - Labs CBC & Chem 7: 01/30/22 09:51 01/30/22 09:51 Labs: Abnormal Lab Results - Last 24 Hours (Table) 01/30/22 01/30/22 Range/Units 09:51 09:51 WBC 11.2 H (3.8-10.6) k/uL RBC 2.46 L (4.30-5.90) m/uL Hgb 8.2 L (13.0-17.5) gm/dL Hct 24.3 L (39.0-53.0) % Sodium 127 L (137-145) mmol/L BUN 21 H (9-20) mg/dL Glucose 112 H (74-99) mg/dL Calcium 7.8 L (8.4-10.2) mg/dL Total Protein 5.4 L (6.3-8.2) g/dL Albumin 2.8 L (3.5-5.0) g/dL Microbiology - Last 24 Hours (Table) 01/27/22 14:55 Anaerobic Culture - Preliminary Knee - Left 01/27/22 14:55 Gram Stain - Final Knee - Left Wound Culture - Final 01/28/22 12:19 Blood Culture - Preliminary Blood No Growth after 24 hours Assessment and Plan (1) Left knee pain Current Visit: Yes Status: Acute Code(s): M25.562 - PAIN IN LEFT KNEE SNOMED Code(s): 6039944893 Plan: 1patient presented to hospital with a left knee pain and locking not in this patient did have a multiple injection to the left knee recently about a week ago and this patient did have significant cloudy aspirate of the left knee with elevated white count high clinical suspicious for possible septic arthritis however the patient did have a positive crystals on analysis with a question of possible gouty arthritis however the patient do not have any history of gout in the past. 2patient uric acid came back normal 3patient CRP and sed rate are elevated. 4patient culture has been negative so far including septic arthritis to be less likely for now continue vancomycin however the culture remains to be negative by morning we will discontinue vancomycin Time with Patient: Less than 30
[2022-01-31] MEDS ORDERED: VANCOMYCIN TROUGH DUE 1 EACH MISC MISCELLANE ONE (03:00)
[2022-01-31 05:19] LABS: HCT 23.6 % (39.0-53.0); HGB 7.7 gm/dL (13.0-17.5); Hypochromasia Slight; MCH 32.6 pg (25.0-35.0); MCHC 32.8 g/dL (31.0-37.0); MCV 99.4 fL (80.0-100.0); Mean Platelet Volume 7.4; Platelet Count 384 k/uL (150-450); RBC 2.37 m/uL (4.30-5.90); RDW 12.6 % (11.5-15.5); WBC 8.7 k/uL (3.8-10.6)
[2022-01-31] MEDS: SODIUM CHLORIDE 0.9% 1,000 ML IV SCH ×2 (05:42→20:51)
[2022-01-31] MEDS: VANCOMYCIN 1,750 MG in SODIUM CHLORIDE 0.9% 500 ML 500 ML IVPB SCH (05:42)
[2022-01-31 06:30] LABS: Glucose,Whole Blood 157 mg/dL (70-110)
[2022-01-31] MEDS: INSULIN ASPART (NovoLOG) 100 UNIT/ML VIAL SQ SCH ×4 (06:36→20:51)
[2022-01-31] MEDS: DEXAMETHASONE SOD PHOSPHATE 4 MG/ML 1 ML VIAL IVP SCH ×4 (06:36→22:34)
[2022-01-31] MEDS: HYDROcodone/APAP 7.5-325MG 1 EACH TAB PO PRN ×2 (09:28→18:22)
[2022-01-31] MEDS: APIXABAN 5 MG TAB PO SCH ×2 (09:28→20:51)
[2022-01-31] MEDS: METOPROLOL TARTRATE 50 MG TAB PO SCH ×2 (09:28→20:51)
--- NOTE | 2022-01-31 09:28 | P.PN ---
Subjective Progress Note Date: 01/31/22 Principal diagnosis: Left knee synovitis/gout Patient was seen at bedside this morning lying in semirecumbent position. Patient says he did get up with physical therapy yesterday, but it was very difficult to bear weight on his left lower extremity due to the pain. He says he was able to move and csit in chair next the bed with assistance. Patient does note that the swelling has decreased in his left lower extremity at this time. However, patient notes he still having pain in the left lower extremity when he tries to flex his knee. Patient denies chest pain, fever, shortness breath, nausea, lying, change in vision, loss of bowel/bladder control. Objective - Vital Signs Vital signs: Vital Signs Temp 97.5 F L 01/31/22 03:37 Pulse 71 01/31/22 03:37 Resp 18 01/31/22 03:37 BP 114/75 01/31/22 03:37 Pulse Ox 95 01/31/22 03:37 FiO2 Intake & Output 01/30/22 01/31/22 01/31/22 18:59 06:59 18:59 Intake Total 80 Output Total 240 1400 Balance -240 -1400 80 Intake: Oral 80 Output: Urine 240 1400 Other: # Voids 3 - Exam steri-strips present over portal sites. Portal sites appear to be healing well. Negative for any fluctuance/purulence. There is minimal swelling throughout left knee. There is more moderate edema along the left foot and ankle. Patient is sensitive to the touch in the left lower extremity at the knee and distally. Patient is able to move left lower extremity albeit with a moderate amount of pain in the knee and ankle. Patient lacks about 15 of full extension in the left knee. Patient has full range of motion bilateral upper extremities and right lower extremity. Patient has good strength in bilateral upper extremities and right lower extremity. Neurovascular status intact. Radial pulses intact, 2+ bilaterally. Cap refill under 3 seconds in digits of the upper extremities. Negative Homans bilaterally - Labs CBC & Chem 7: 01/31/22 03:59 01/30/22 09:51 Labs: Abnormal Lab Results - Last 24 Hours (Table) 01/30/22 01/30/22 01/31/22 Range/Units 09:51 09:51 03:59 WBC 11.2 H (3.8-10.6) k/uL RBC 2.46 L 2.37 L (4.30-5.90) m/uL Hgb 8.2 L 7.7 L (13.0-17.5) gm/dL Hct 24.3 L 23.6 L (39.0-53.0) % Sodium 127 L (137-145) mmol/L BUN 21 H (9-20) mg/dL Glucose 112 H (74-99) mg/dL POC Glucose (mg/dL) (70-110) mg/dL Calcium 7.8 L (8.4-10.2) mg/dL Total Protein 5.4 L (6.3-8.2) g/dL Albumin 2.8 L (3.5-5.0) g/dL 01/31/22 Range/Units 06:18 WBC (3.8-10.6) k/uL RBC (4.30-5.90) m/uL Hgb (13.0-17.5) gm/dL Hct (39.0-53.0) % Sodium (137-145) mmol/L BUN (9-20) mg/dL Glucose (74-99) mg/dL POC Glucose (mg/dL) 157 H (70-110) mg/dL Calcium (8.4-10.2) mg/dL Total Protein (6.3-8.2) g/dL Albumin (3.5-5.0) g/dL Microbiology - Last 24 Hours (Table) 01/28/22 12:19 Blood Culture - Preliminary Blood No Growth after 48 hours Assessment and Plan Assessment: 1. Left knee synovitis/gout/possible septic arthritis Postoperative day #2 status post Arthroscopic irrigation and debridement left knee/synovectomy of the medial, lateral, and patellofemoral compartment Plan: 1. Left knee synovitis/gout/possible septic arthritis - surgery performed , 01/29/2022 - Arthroscopic irrigation and debridement left knee/synovectomy of the medial, lateral, and patellofemoral compartment. Patient stable at bedside this morning. Venous Doppler ultrasound of left lower extremity negative for DVT. Patient to continue Decadron 4 mg every 6 hours. Continue colchicine. Patient is stable for discharge home from an orthopedic standpoint. recommend patient to follow up in outpatient setting in 2 weeks. Antiembolism hose ordered. We will continue to follow patient while in hospital. 2. Appreciate medical and ID management - patient on Vanco currently 3. Pain management - [place] 4. DVT prophylaxis -Eliquis 5. GI ppx - senna 6. PT/OT - weightbearing as tolerated with walker as needed 7. Encourage incentive spirometer use Time with Patient: Less than 30
[2022-01-31] MEDS: ATORVASTATIN 80 MG TAB PO SCH (09:29)
[2022-01-31] MEDS: CLOPIDOGREL 75 MG TAB PO SCH (09:29)
[2022-01-31] MEDS: lisinopriL 5 MG TAB PO SCH (09:29)
[2022-01-31] MEDS: COLCHICINE 0.6 MG EACH PO SCH (09:29)
[2022-01-31 10:40] LABS: ALT 53 U/L (4-49); AST 52 U/L (17-59); African American GFR (CKD) >90 (>60 ml/min/1.73 sqM); Albumin 2.5 g/dL (3.5-5.0); Alkaline Phosphatase 128 U/L (38-126); Anion Gap 6 mmol/L; Blood Urea Nitrogen 24 mg/dL (9-20); Calcium 7.8 mg/dL (8.4-10.2); Carbon Dioxide 22 mmol/L (22-30); Chloride 102 mmol/L (98-107); Glucose 141 mg/dL (74-99); Magnesium 2.1 mg/dL (1.6-2.3); Non-African American GFR(CKD) 87 (>60 ml/min/1.73 sqM); Potassium 5.3 mmol/L (3.5-5.1); Sodium 130 mmol/L (137-145); Total Bilirubin 0.1 mg/dL (0.2-1.3)
[2022-01-31 12:10] LABS: Glucose,Whole Blood 150 mg/dL (70-110)
--- NOTE | 2022-01-31 12:36 | P.PN ---
Subjective Progress Note Date: 01/31/22 Principal diagnosis: Left knee pain questionably septic arthritis Patient is a 71-year-old male presenting to the hospital with acute left knee pain in this patient who recently did have injection to the left knee and there was concern for possible septic arthritis with the elevated white count on the knee aspirate, patient is status post left knee washout completed 0 01/29/2022. On today's evaluation that is, 01/31/2022 the patient denies any fever or chills , the patient is feeling better today, and the patient pain to the left knee has decreased in intensity, the patient denies any chest pain or shortness of breath or cough no abdominal pain no diarrhea Objective - Vital Signs Vital signs: Vital Signs Temp 97.9 F 01/31/22 08:00 Pulse 110 H 01/31/22 08:00 Resp 18 01/31/22 08:00 BP 131/72 01/31/22 08:00 Pulse Ox 100 01/31/22 08:00 FiO2 Intake & Output 01/30/22 01/31/22 01/31/22 18:59 06:59 18:59 Intake Total 80 Output Total 240 1400 Balance -240 -1400 80 Intake: Oral 80 Output: Urine 240 1400 Other: # Voids 3 - Exam GENERAL DESCRIPTION: An elderly male lying in bed in no distress RESPIRATORY SYSTEM: Unlabored breathing , decreased breath sounds at bases HEART: S1 S2 regular rate and rhythm , ABDOMEN: Soft , no tenderness EXTREMITIES: Left knee With the swelling but no redness and left leg with 2+ edema feet - Labs CBC & Chem 7: 01/31/22 03:59 01/31/22 03:59 Labs: Abnormal Lab Results - Last 24 Hours (Table) 01/31/22 01/31/22 01/31/22 Range/Units 03:59 03:59 06:18 RBC 2.37 L (4.30-5.90) m/uL Hgb 7.7 L (13.0-17.5) gm/dL Hct 23.6 L (39.0-53.0) % Sodium 130 L (137-145) mmol/L Potassium 5.3 H (3.5-5.1) mmol/L BUN 24 H (9-20) mg/dL Glucose 141 H (74-99) mg/dL POC Glucose (mg/dL) 157 H (70-110) mg/dL Calcium 7.8 L (8.4-10.2) mg/dL Total Bilirubin 0.1 L (0.2-1.3) mg/dL ALT 53 H (4-49) U/L Alkaline Phosphatase 128 H (38-126) U/L Total Protein 5.0 L (6.3-8.2) g/dL Albumin 2.5 L (3.5-5.0) g/dL Microbiology - Last 24 Hours (Table) 01/28/22 12:19 Blood Culture - Preliminary Blood No Growth after 48 hours Assessment and Plan (1) Left knee pain Current Visit: Yes Status: Acute Code(s): M25.562 - PAIN IN LEFT KNEE SNOMED Code(s): 5328149759 Plan: 1patient presented to hospital with a left knee pain and locking not in this patient did have a multiple injection to the left knee recently about a week ago and this patient did have significant cloudy aspirate of the left knee with elevated white count high clinical suspicious for possible septic arthritis however the patient did have a positive crystals on analysis with a question of possible gouty arthritis however the patient do not have any history of gout in the past. 2patient uric acid came back normal 3patient CRP and sed rate are elevated. 4patient culture has been negative so far making septic arthritis to be less likely, we'll discontinue vancomycin and monitor the patient was off antibiotic Time with Patient: Less than 30
[2022-01-31] MEDS ORDERED: VANCOMYCIN 1,750 MG in SODIUM CHLORIDE 0.9% 500 ML 500 ML IVPB SCH (14:00)
--- NOTE | 2022-01-31 14:00 | P.PN ---
Subjective Progress Note Date: 01/31/22 Patient is seen today sitting on the side of the bed. He continues to deny chest pain or increased shortness of breath patient's heart rate is elevated today will add Cardizem 30 mg 3 times a day. Will continue with Eliquis for anticoagulation. Patient underwent a Doppler of his lower left leg was negative for DVT Objective - Vital Signs Vital signs: Vital Signs Temp 97.9 F 01/31/22 08:00 Pulse 110 H 01/31/22 08:00 Resp 18 01/31/22 08:00 BP 131/72 01/31/22 08:00 Pulse Ox 100 01/31/22 08:00 FiO2 Intake & Output 01/30/22 01/31/22 01/31/22 18:59 06:59 18:59 Intake Total 80 Output Total 240 1400 Balance -240 -1400 80 Intake: Oral 80 Output: Urine 240 1400 Other: # Voids 3 - Exam PHYSICAL EXAM: VITAL SIGNS: Reviewed. GENERAL: Well-developed in no acute distress. HEENT: Head is normocephalic. Pupils are equal, round. Sclerae anicteric. Mucous membranes of the mouth are moist. NECK: Supple. No JVD or thyromegaly RESPIRATORY: Respirations even and unlabored. Lungs diminished to auscultation bilaterally. CARDIO: Regular rate and rhythm. S1 and S2 heard. No murmur or gallops. EXTREMITIES: Normal range of motion. No clubbing or cyanosis. Peripheral pulses intact. Negative for bilateral lower extremity edema NEURO: Orientated to person, time, mood is appropriate - Labs CBC & Chem 7: 01/31/22 03:59 01/31/22 03:59 Labs: Abnormal Lab Results - Last 24 Hours (Table) 01/31/22 01/31/22 01/31/22 Range/Units 03:59 03:59 06:18 RBC 2.37 L (4.30-5.90) m/uL Hgb 7.7 L (13.0-17.5) gm/dL Hct 23.6 L (39.0-53.0) % Sodium 130 L (137-145) mmol/L Potassium 5.3 H (3.5-5.1) mmol/L BUN 24 H (9-20) mg/dL Glucose 141 H (74-99) mg/dL POC Glucose (mg/dL) 157 H (70-110) mg/dL Calcium 7.8 L (8.4-10.2) mg/dL Total Bilirubin 0.1 L (0.2-1.3) mg/dL ALT 53 H (4-49) U/L Alkaline Phosphatase 128 H (38-126) U/L Total Protein 5.0 L (6.3-8.2) g/dL Albumin 2.5 L (3.5-5.0) g/dL 01/31/22 Range/Units 11:55 RBC (4.30-5.90) m/uL Hgb (13.0-17.5) gm/dL Hct (39.0-53.0) % Sodium (137-145) mmol/L Potassium (3.5-5.1) mmol/L BUN (9-20) mg/dL Glucose (74-99) mg/dL POC Glucose (mg/dL) 150 H (70-110) mg/dL Calcium (8.4-10.2) mg/dL Total Bilirubin (0.2-1.3) mg/dL ALT (4-49) U/L Alkaline Phosphatase (38-126) U/L Total Protein (6.3-8.2) g/dL Albumin (3.5-5.0) g/dL Microbiology - Last 24 Hours (Table) 01/28/22 12:19 Blood Culture - Preliminary Blood No Growth after 48 hours Assessment and Plan Assessment: New onset paroxysmal atrial fibrillation with RVR -[id number] score 3 Left knee pain with planned arthroscopic irrigation and debridement of his left knee with Dr. Monaco, s/p left knee aspiration Coronary artery disease s/p PCI proximal LAD most recently in 04/2021 and PCI proximal PCI 2013 Hypertension Dyslipidemia Plan: Eliquis for anticoagulation Add Cardizem 30 mg 3 times a day continue Lopressor to 100 mg twice a day and lisinopril to 5 mg daily Continue with all other current cardiac medications Continue with telemetry monitoring Further recommendations based on clinical course The above impression and plan of care have been discussed and directed by the signing physician. Sophia Macario, nurse practitioner, acting as scribe for signing physician.
[2022-01-31 16:51] LABS: Glucose,Whole Blood 162 mg/dL (70-110)
--- NOTE | 2022-01-31 17:22 | P.PN ---
Subjective Progress Note Date: 01/31/22 Principal diagnosis: left knee arthritis He is doing well. Pain is under control. No nausea or vomiting. No overnight events. No fevers. Objective - Vital Signs Vital signs: Vital Signs Temp 97.9 F 01/31/22 08:00 Pulse 101 H 01/31/22 14:00 Resp 18 01/31/22 12:00 BP 95/59 01/31/22 12:00 Pulse Ox 97 01/31/22 12:00 FiO2 Intake & Output 01/30/22 01/31/22 01/31/22 18:59 06:59 18:59 Intake Total 260 Output Total 240 1400 575 Balance -240 -1400 -315 Intake: Oral 260 Output: Urine 240 1400 575 Other: # Voids 3 3 # Bowel Movements 2 - Exam Constitutional: No acute distress, conversant, pleasant Eyes:Anicteric sclerae, moist conjunctiva, no lid-lag, PERRLA, ENMT: Oropharynx clear, no erythema, exudates Neck: Supple, FROM, no masses, or JVD, No carotid bruits, No thyromegaly Lungs: Clear to auscultation, Clear to percussion, Normal respiratory effort, no accessory muscle use Cardiovascular: Heart regular in rate and rhythm, No murmurs, gallops, or rubs, No peripheral edema Abdominal: Soft, Nontender, no guarding, rebound or rigidity, Normoactive bowel sounds, No hepatomegaly, No splenomegaly, No palpable mass Skin: Normal temperature, tone, texture, turgor, no induration, No subcutaneous nodules, No rash, lesions, No ulcers Extremities: No digital cyanosis, No clubbing, Pedal pulses intact and symmetrical, Radial pulses intact and symmetrical, No calf tenderness Psychiatric: Alert and oriented to person, place and time, appropriate affect, intact judgement Neuro: Muscles Strength 5/5 in all 4 extremities, Sensation to light touch grossly present throughout, Cranial nerves II-XII grossly intact, no focal sensory deficits - Labs CBC & Chem 7: 01/31/22 03:59 01/31/22 03:59 Labs: Abnormal Lab Results - Last 24 Hours (Table) 01/31/22 01/31/22 01/31/22 Range/Units 03:59 03:59 06:18 RBC 2.37 L (4.30-5.90) m/uL Hgb 7.7 L (13.0-17.5) gm/dL Hct 23.6 L (39.0-53.0) % Sodium 130 L (137-145) mmol/L Potassium 5.3 H (3.5-5.1) mmol/L BUN 24 H (9-20) mg/dL Glucose 141 H (74-99) mg/dL POC Glucose (mg/dL) 157 H (70-110) mg/dL Calcium 7.8 L (8.4-10.2) mg/dL Total Bilirubin 0.1 L (0.2-1.3) mg/dL ALT 53 H (4-49) U/L Alkaline Phosphatase 128 H (38-126) U/L Total Protein 5.0 L (6.3-8.2) g/dL Albumin 2.5 L (3.5-5.0) g/dL 01/31/22 01/31/22 Range/Units 11:55 16:43 RBC (4.30-5.90) m/uL Hgb (13.0-17.5) gm/dL Hct (39.0-53.0) % Sodium (137-145) mmol/L Potassium (3.5-5.1) mmol/L BUN (9-20) mg/dL Glucose (74-99) mg/dL POC Glucose (mg/dL) 150 H 162 H (70-110) mg/dL Calcium (8.4-10.2) mg/dL Total Bilirubin (0.2-1.3) mg/dL ALT (4-49) U/L Alkaline Phosphatase (38-126) U/L Total Protein (6.3-8.2) g/dL Albumin (3.5-5.0) g/dL Microbiology - Last 24 Hours (Table) 01/28/22 12:19 Blood Culture - Preliminary Blood No Growth after 72 hours Assessment and Plan Plan: Left knee synovitis, rule out septic arthritis -Left knee aspiration of synovial fluid was completed on 01/27/22 -Patient underwent I&D of left knee on 01/29/22 -Synovial fluid positive for crystals, WBC 43631, -Patient was started on colchicine due to presence of crystals on SF analysis. -Cultures from SF NGTD. Blood cultures showing no growth 24 hours. -Inflammatory markers elevated with ESR 108 and CRP 13.2. Mild leukocytosis with WBC count of 11.0. -IV antibiotics: Status post treatment with Vancomycin which was discontinued 01/31 by infectious disease. -Symptomatic care and pain management. -Management per primary admitting orthopedic surgery team including DVT prophylaxis, pain management, New-onset atrial fibrillation with RVR -[id number] score 3. -Echocardiogram showing normal EF 50-55% with no reported significant structural or valvular abnormalities. -Patient started anticoagulation with Eliquis -Seen by cardiology, continue on metoprolol, Cardizem added today due to persistently elevated heart rate. Hyponatremia -Likely secondary to dehydration -Continue 0.9% normal saline at 75 mL per hour -Repeat a.m. labs. Normocytic normochromic anemia -Anemia workup sent, iron profile, B12, folic acid -Follow in a.m. History of CAD status post stenting -Plavix currently held per recommendations of orthopedic surgery team. Hypertension -Monitor vital signs and continue daily medication regimen with metoprolol and lisinopril.
[2022-01-31 18:22] LABS: % Iron Saturation 4.25 (15.00-50.00); Iron 9 ug/dL (65-175); Total Iron Binding Capacity 211 ug/dL (228-460)
[2022-01-31] MEDS: DILTIAZEM ORAL 30 MG TAB PO SCH ×2 (18:22→20:51)
[2022-01-31 20:11] LABS: Glucose,Whole Blood 168 mg/dL (70-110)
[2022-02-01 05:46] LABS: Basophils % (A) 0 %; Eosinophils % (A) 0 %; HCT 23.9 % (39.0-53.0); Hypochromasia Slight; Lymphocytes # (A) 0.5 k/uL (1.0-4.8); Lymphocytes % (A) 4 %; MCH 32.6 pg (25.0-35.0); MCHC 33.3 g/dL (31.0-37.0); MCV 98.1 fL (80.0-100.0); Mean Platelet Volume 7.6; Monocytes # (A) 0.5 k/uL (0-1.0); Monocytes % (A) 4 %; Neutrophils # (A) 11.8 k/uL (1.3-7.7); Neutrophils % (A) 91 %; Platelet Count 488 k/uL (150-450); RBC 2.44 m/uL (4.30-5.90); RDW 13.2 % (11.5-15.5)
[2022-02-01 05:59] LABS: ALT 91 U/L (4-49); AST 71 U/L (17-59); African American GFR (CKD) >90 (>60 ml/min/1.73 sqM); Albumin 2.7 g/dL (3.5-5.0); Alkaline Phosphatase 125 U/L (38-126); Anion Gap 5 mmol/L; Blood Urea Nitrogen 28 mg/dL (9-20); Calcium 8.1 mg/dL (8.4-10.2); Carbon Dioxide 23 mmol/L (22-30); Chloride 105 mmol/L (98-107); Glucose 145 mg/dL (74-99); Non-African American GFR(CKD) 85 (>60 ml/min/1.73 sqM); Potassium 4.9 mmol/L (3.5-5.1); Sodium 133 mmol/L (137-145); Total Bilirubin 0.1 mg/dL (0.2-1.3); Total Protein 5.2 g/dL (6.3-8.2)
[2022-02-01 06:07] LABS: Glucose,Whole Blood 170 mg/dL (70-110)
[2022-02-01] MEDS: DEXAMETHASONE SOD PHOSPHATE 4 MG/ML 1 ML VIAL IVP SCH ×4 (06:16→23:47)
[2022-02-01] MEDS: INSULIN ASPART (NovoLOG) 100 UNIT/ML VIAL SQ SCH ×4 (06:17→21:05)
[2022-02-01] MEDS: APIXABAN 5 MG TAB PO SCH ×2 (08:07→21:05)
[2022-02-01] MEDS: lisinopriL 5 MG TAB PO SCH (08:07)
[2022-02-01] MEDS: METOPROLOL TARTRATE 50 MG TAB PO SCH ×2 (08:07→21:05)
[2022-02-01] MEDS: COLCHICINE 0.6 MG EACH PO SCH (08:08)
[2022-02-01] MEDS: ATORVASTATIN 80 MG TAB PO SCH (08:08)
[2022-02-01] MEDS: CLOPIDOGREL 75 MG TAB PO SCH (08:08)
[2022-02-01] MEDS: DILTIAZEM ORAL 30 MG TAB PO SCH ×3 (08:08→21:05)
[2022-02-01] MEDS: SENNOSIDES 8.6 MG TAB PO SCH (08:08)
[2022-02-01] MEDS: SODIUM CHLORIDE 0.9% 1,000 ML IV SCH ×2 (08:55→09:48)
[2022-02-01] MEDS: HYDROcodone/APAP 7.5-325MG 1 EACH TAB PO PRN (09:46)
[2022-02-01 11:52] LABS: Glucose,Whole Blood 152 mg/dL (70-110)
[2022-02-01] MEDS ORDERED: ALPRAZolam 0.25 MG TAB PO PRN (12:36)
--- NOTE | 2022-02-01 13:20 | P.PN ---
Subjective Progress Note Date: 02/01/22 Principal diagnosis: Left knee synovitis/gout Patient was seen at bedside this morning sitting up in chair. He says he was not able to put weight on the heel of his foot. Patient says he did get up with physical therapy yesterday, but it was very difficult to bear weight on his left lower extremity due to the pain. Patient does note that the swelling has decreased in his left lower extremity at this time. However, patient notes he still having pain in the left lower extremity when he tries to flex his knee. Patient denies chest pain, fever, shortness breath, nausea, lying, change in vision, loss of bowel/bladder control. Objective - Vital Signs Vital signs: Vital Signs Temp 97.5 F L 02/01/22 12:15 Pulse 83 02/01/22 12:15 Resp 18 02/01/22 12:15 BP 100/57 02/01/22 12:15 Pulse Ox 98 02/01/22 12:15 FiO2 Intake & Output 01/31/22 02/01/22 02/01/22 18:59 06:59 18:59 Intake Total 260 Output Total 975 600 Balance -715 -600 Intake: Oral 260 Output: Urine 975 600 Other: # Voids 3 # Bowel Movements 2 - Exam steri-strips present over portal sites. Portal sites appear to be healing well. Negative for any fluctuance/purulence. There is minimal swelling throughout left knee. There is more moderate edema along the left foot and ankle. Patient is sensitive to the touch in the left lower extremity at the knee and distally. Patient is able to move left lower extremity albeit with a moderate amount of pain in the knee and ankle. Patient lacks about 15 of full extension in the left knee. Patient has full range of motion bilateral upper extremities and right lower extremity. Patient has good strength in bilateral upper extremities and right lower extremity. Neurovascular status intact. Radial pulses intact, 2+ bilaterally. Cap refill under 3 seconds in digits of the upper extremities. Negative Homans bilaterally - Labs CBC & Chem 7: 02/01/22 05:18 02/01/22 05:18 Labs: Abnormal Lab Results - Last 24 Hours (Table) 01/31/22 01/31/22 01/31/22 Range/Units 03:59 16:43 20:05 WBC (3.8-10.6) k/uL RBC (4.30-5.90) m/uL Hgb (13.0-17.5) gm/dL Hct (39.0-53.0) % Plt Count (150-450) k/uL Neutrophils # (1.3-7.7) k/uL Lymphocytes # (1.0-4.8) k/uL Sodium (137-145) mmol/L BUN (9-20) mg/dL Glucose (74-99) mg/dL POC Glucose (mg/dL) 162 H 168 H (70-110) mg/dL Calcium (8.4-10.2) mg/dL Iron 9 L (65-175) ug/dL TIBC 211 L (228-460) ug/dL % Saturation 4.25 L (15.00-50.00) Transferrin 151.0 L (204.0-354.0) mg/dL Total Bilirubin (0.2-1.3) mg/dL AST (17-59) U/L ALT (4-49) U/L Total Protein (6.3-8.2) g/dL Albumin (3.5-5.0) g/dL 02/01/22 02/01/22 02/01/22 Range/Units 05:18 05:18 06:05 WBC 13.0 H (3.8-10.6) k/uL RBC 2.44 L (4.30-5.90) m/uL Hgb 8.0 L (13.0-17.5) gm/dL Hct 23.9 L (39.0-53.0) % Plt Count 488 H (150-450) k/uL Neutrophils # 11.8 H (1.3-7.7) k/uL Lymphocytes # 0.5 L (1.0-4.8) k/uL Sodium 133 L (137-145) mmol/L BUN 28 H (9-20) mg/dL Glucose 145 H (74-99) mg/dL POC Glucose (mg/dL) 170 H (70-110) mg/dL Calcium 8.1 L (8.4-10.2) mg/dL Iron (65-175) ug/dL TIBC (228-460) ug/dL % Saturation (15.00-50.00) Transferrin (204.0-354.0) mg/dL Total Bilirubin 0.1 L (0.2-1.3) mg/dL AST 71 H (17-59) U/L ALT 91 H (4-49) U/L Total Protein 5.2 L (6.3-8.2) g/dL Albumin 2.7 L (3.5-5.0) g/dL 02/01/22 Range/Units 11:50 WBC (3.8-10.6) k/uL RBC (4.30-5.90) m/uL Hgb (13.0-17.5) gm/dL Hct (39.0-53.0) % Plt Count (150-450) k/uL Neutrophils # (1.3-7.7) k/uL Lymphocytes # (1.0-4.8) k/uL Sodium (137-145) mmol/L BUN (9-20) mg/dL Glucose (74-99) mg/dL POC Glucose (mg/dL) 152 H (70-110) mg/dL Calcium (8.4-10.2) mg/dL Iron (65-175) ug/dL TIBC (228-460) ug/dL % Saturation (15.00-50.00) Transferrin (204.0-354.0) mg/dL Total Bilirubin (0.2-1.3) mg/dL AST (17-59) U/L ALT (4-49) U/L Total Protein (6.3-8.2) g/dL Albumin (3.5-5.0) g/dL Microbiology - Last 24 Hours (Table) 01/27/22 14:55 Anaerobic Culture - Final Knee - Left 01/28/22 12:19 Blood Culture - Preliminary Blood No Growth after 72 hours Assessment and Plan Assessment: 1. Left knee synovitis/gout/possible septic arthritis Postoperative day #3 status post Arthroscopic irrigation and debridement left knee/synovectomy of the medial, lateral, and patellofemoral compartment Plan: 1. Left knee synovitis/gout/possible septic arthritis - surgery performed , 01/29/2022 - Arthroscopic irrigation and debridement left knee/synovectomy of the medial, lateral, and patellofemoral compartment. Patient stable at bedside this morning. Venous Doppler ultrasound of left lower extremity negative for DVT. Patient to continue Decadron 4 mg every 6 hours. Continue colchicine. Patient is stable for discharge home from an orthopedic standpoint. recommend patient to follow up in outpatient setting in 2 weeks. Antiembolism hose ordered. We will continue to follow patient while in hospital. 2. Appreciate medical and ID management 3. Pain management - [place] 4. DVT prophylaxis -Eliquis; Plavix 5. GI ppx - senna 6. PT/OT - weightbearing as tolerated with walker as needed 7. Encourage incentive spirometer use Time with Patient: Less than 30
--- NOTE | 2022-02-01 14:24 | P.PN ---
Subjective Progress Note Date: 02/01/22 Patient examined today sitting in the chair doing well. He continues to deny increased shortness of breath or chest pain. Heart rate and blood pressure remained well-controlled. He continues on Eliquis for anticoagulation. Left lower extremity edema has improved. Continue with all current cardiac med ications Objective - Vital Signs Vital signs: Vital Signs Temp 97.5 F L 02/01/22 12:15 Pulse 83 02/01/22 12:15 Resp 18 02/01/22 12:15 BP 100/57 02/01/22 12:15 Pulse Ox 98 02/01/22 12:15 FiO2 Intake & Output 01/31/22 02/01/22 02/01/22 18:59 06:59 18:59 Intake Total 260 600 Output Total 975 600 Balance -715 -600 600 Intake: Intake, IV Titration 600 Amount Sodium Chloride 0.9% 1, 600 000 ml @ 75 mls/hr IV . [id number] EMMANUEL Rx#:[id number] Oral 260 Output: Urine 975 600 Other: # Voids 3 # Bowel Movements 2 - Exam PHYSICAL EXAM: VITAL SIGNS: Reviewed. GENERAL: Well-developed in no acute distress. HEENT: Head is normocephalic. Pupils are equal, round. Sclerae anicteric. Mucous membranes of the mouth are moist. NECK: Supple. No JVD or thyromegaly RESPIRATORY: Respirations even and unlabored. Lungs diminished to auscultation bilaterally. CARDIO: Regular rate and rhythm. S1 and S2 heard. No murmur or gallops. EXTREMITIES: Normal range of motion. No clubbing or cyanosis. Peripheral pulses intact. mild left lower extremity edema NEURO: Orientated to person, time, mood is appropriate - Labs CBC & Chem 7: 02/01/22 05:18 02/01/22 05:18 Labs: Abnormal Lab Results - Last 24 Hours (Table) 01/31/22 01/31/22 01/31/22 Range/Units 03:59 16:43 20:05 WBC (3.8-10.6) k/uL RBC (4.30-5.90) m/uL Hgb (13.0-17.5) gm/dL Hct (39.0-53.0) % Plt Count (150-450) k/uL Neutrophils # (1.3-7.7) k/uL Lymphocytes # (1.0-4.8) k/uL Sodium (137-145) mmol/L BUN (9-20) mg/dL Glucose (74-99) mg/dL POC Glucose (mg/dL) 162 H 168 H (70-110) mg/dL Calcium (8.4-10.2) mg/dL Iron 9 L (65-175) ug/dL TIBC 211 L (228-460) ug/dL % Saturation 4.25 L (15.00-50.00) Transferrin 151.0 L (204.0-354.0) mg/dL Total Bilirubin (0.2-1.3) mg/dL AST (17-59) U/L ALT (4-49) U/L Total Protein (6.3-8.2) g/dL Albumin (3.5-5.0) g/dL 02/01/22 02/01/22 02/01/22 Range/Units 05:18 05:18 06:05 WBC 13.0 H (3.8-10.6) k/uL RBC 2.44 L (4.30-5.90) m/uL Hgb 8.0 L (13.0-17.5) gm/dL Hct 23.9 L (39.0-53.0) % Plt Count 488 H (150-450) k/uL Neutrophils # 11.8 H (1.3-7.7) k/uL Lymphocytes # 0.5 L (1.0-4.8) k/uL Sodium 133 L (137-145) mmol/L BUN 28 H (9-20) mg/dL Glucose 145 H (74-99) mg/dL POC Glucose (mg/dL) 170 H (70-110) mg/dL Calcium 8.1 L (8.4-10.2) mg/dL Iron (65-175) ug/dL TIBC (228-460) ug/dL % Saturation (15.00-50.00) Transferrin (204.0-354.0) mg/dL Total Bilirubin 0.1 L (0.2-1.3) mg/dL AST 71 H (17-59) U/L ALT 91 H (4-49) U/L Total Protein 5.2 L (6.3-8.2) g/dL Albumin 2.7 L (3.5-5.0) g/dL 02/01/22 Range/Units 11:50 WBC (3.8-10.6) k/uL RBC (4.30-5.90) m/uL Hgb (13.0-17.5) gm/dL Hct (39.0-53.0) % Plt Count (150-450) k/uL Neutrophils # (1.3-7.7) k/uL Lymphocytes # (1.0-4.8) k/uL Sodium (137-145) mmol/L BUN (9-20) mg/dL Glucose (74-99) mg/dL POC Glucose (mg/dL) 152 H (70-110) mg/dL Calcium (8.4-10.2) mg/dL Iron (65-175) ug/dL TIBC (228-460) ug/dL % Saturation (15.00-50.00) Transferrin (204.0-354.0) mg/dL Total Bilirubin (0.2-1.3) mg/dL AST (17-59) U/L ALT (4-49) U/L Total Protein (6.3-8.2) g/dL Albumin (3.5-5.0) g/dL Microbiology - Last 24 Hours (Table) 01/27/22 14:55 Anaerobic Culture - Final Knee - Left 01/28/22 12:19 Blood Culture - Preliminary Blood No Growth after 72 hours Assessment and Plan Assessment: New onset paroxysmal atrial fibrillation with RVR -[id number] score 3 Left knee pain with planned arthroscopic irrigation and debridement of his left knee with Dr. Monaco, s/p left knee aspiration Coronary artery disease s/p PCI proximal LAD most recently in 04/2021 and PCI proximal PCI 2013 Hypertension Dyslipidemia Plan: Eliquis for anticoagulation Continue Cardizem 30 mg 3 times a day continue Lopressor to 100 mg twice a day and lisinopril to 5 mg daily Continue with all other current cardiac medications Continue with telemetry monitoring Further recommendations based on clinical course The above impression and plan of care have been discussed and directed by the signing physician. Sophia Macario, nurse practitioner, acting as scribe for signing physician.
--- NOTE | 2022-02-01 15:32 | P.PN ---
Subjective Chart was reviewed patient was seen and examined. Patient is up in the chair. Patient denies any respiratory or GI complaints. Patient worked with physical therapy yesterday however he needs walker for ambulation not able to bear full weight. Otherwise denies any nausea vomiting chest pain or shortness of breath. Objective - Vital Signs Vital signs: Vital Signs Temp 97.5 F L 02/01/22 12:15 Pulse 83 02/01/22 12:15 Resp 18 02/01/22 12:15 BP 100/57 02/01/22 12:15 Pulse Ox 98 02/01/22 12:15 FiO2 Intake & Output 01/31/22 02/01/22 02/01/22 18:59 06:59 18:59 Intake Total 260 840 Output Total 975 600 Balance -715 -600 840 Intake: Intake, IV Titration 600 Amount Sodium Chloride 0.9% 1, 600 000 ml @ 75 mls/hr IV . [id number] [facility] Rx#:[id number] Oral 260 240 Output: Urine 975 600 Other: # Voids 3 # Bowel Movements 2 - Exam Awake alert oriented 3, no acute distress Head and neck: Anicteric sclera, extraocular movements intact, no facial asymmetry, oropharyngeal mucosa is moist without any lesions, neck is supple without rigidity, no neck masses or neck vein distention Heart: Regular rhythm and rate, S1, S2; no murmurs rubs or gallops Lungs: Breath sounds present bilateral, no wheezing, rhonchi or crackles Abdomen: Bowel sounds present throughout, abdomen is soft, nontender, nondistended, no involuntary guarding, no hernias or organomegaly, no flank tenderness Extremities: Left lower extremity edema 2+, left knee swelling, pulses present bilaterally sensitivity to light touch preserved and periphery - Labs CBC & Chem 7: 02/01/22 05:18 02/01/22 05:18 Labs: Abnormal Lab Results - Last 24 Hours (Table) 01/31/22 01/31/22 01/31/22 Range/Units 03:59 16:43 20:05 WBC (3.8-10.6) k/uL RBC (4.30-5.90) m/uL Hgb (13.0-17.5) gm/dL Hct (39.0-53.0) % Plt Count (150-450) k/uL Neutrophils # (1.3-7.7) k/uL Lymphocytes # (1.0-4.8) k/uL Sodium (137-145) mmol/L BUN (9-20) mg/dL Glucose (74-99) mg/dL POC Glucose (mg/dL) 162 H 168 H (70-110) mg/dL Calcium (8.4-10.2) mg/dL Iron 9 L (65-175) ug/dL TIBC 211 L (228-460) ug/dL % Saturation 4.25 L (15.00-50.00) Transferrin 151.0 L (204.0-354.0) mg/dL Total Bilirubin (0.2-1.3) mg/dL AST (17-59) U/L ALT (4-49) U/L Total Protein (6.3-8.2) g/dL Albumin (3.5-5.0) g/dL 02/01/22 02/01/22 02/01/22 Range/Units 05:18 05:18 06:05 WBC 13.0 H (3.8-10.6) k/uL RBC 2.44 L (4.30-5.90) m/uL Hgb 8.0 L (13.0-17.5) gm/dL Hct 23.9 L (39.0-53.0) % Plt Count 488 H (150-450) k/uL Neutrophils # 11.8 H (1.3-7.7) k/uL Lymphocytes # 0.5 L (1.0-4.8) k/uL Sodium 133 L (137-145) mmol/L BUN 28 H (9-20) mg/dL Glucose 145 H (74-99) mg/dL POC Glucose (mg/dL) 170 H (70-110) mg/dL Calcium 8.1 L (8.4-10.2) mg/dL Iron (65-175) ug/dL TIBC (228-460) ug/dL % Saturation (15.00-50.00) Transferrin (204.0-354.0) mg/dL Total Bilirubin 0.1 L (0.2-1.3) mg/dL AST 71 H (17-59) U/L ALT 91 H (4-49) U/L Total Protein 5.2 L (6.3-8.2) g/dL Albumin 2.7 L (3.5-5.0) g/dL 02/01/22 Range/Units 11:50 WBC (3.8-10.6) k/uL RBC (4.30-5.90) m/uL Hgb (13.0-17.5) gm/dL Hct (39.0-53.0) % Plt Count (150-450) k/uL Neutrophils # (1.3-7.7) k/uL Lymphocytes # (1.0-4.8) k/uL Sodium (137-145) mmol/L BUN (9-20) mg/dL Glucose (74-99) mg/dL POC Glucose (mg/dL) 152 H (70-110) mg/dL Calcium (8.4-10.2) mg/dL Iron (65-175) ug/dL TIBC (228-460) ug/dL % Saturation (15.00-50.00) Transferrin (204.0-354.0) mg/dL Total Bilirubin (0.2-1.3) mg/dL AST (17-59) U/L ALT (4-49) U/L Total Protein (6.3-8.2) g/dL Albumin (3.5-5.0) g/dL Microbiology - Last 24 Hours (Table) 01/28/22 12:19 Blood Culture - Preliminary Blood No Growth after 96 hours 01/27/22 14:55 Anaerobic Culture - Final Knee - Left Assessment and Plan Assessment: #Left knee arthritis Status post I&D of the left knee 01/29/22, fluids positive for crystals negative Gram stain and cultures Clear by orthopedic surgery and infectious disease from infectious standpoint Started on colchicine and systemic steroids for gout attack Keep leg elevated Venous Doppler negative for DVT #Paroxysmal atrial fibrillation with RVR Cardiology following Echo: Preserved EF and no significant vulvar abnormalities Started on Eliquis, metoprolol, Cardizem Continue to monitor on telemetry #Hyponatremia Improving and nephrology following We'll discontinue IV fluids at this point #Hypertension On lisinopril #Acute debility and gait difficulties Continue physical and occupational therapy Disposition: Patient is interested to go home; will await reevaluation by physical chronic patient will therapy in terms of gait difficulties especially patient being started on anticoagulation.
[2022-02-01 16:41] LABS: Glucose,Whole Blood 184 mg/dL (70-110)
[2022-02-01 20:33] LABS: Glucose,Whole Blood 192 mg/dL (70-110)
[2022-02-02 05:59] LABS: Glucose,Whole Blood 167 mg/dL (70-110)
[2022-02-02] MEDS: INSULIN ASPART (NovoLOG) 100 UNIT/ML VIAL SQ SCH ×2 (06:38→12:36)
[2022-02-02] MEDS: DEXAMETHASONE SOD PHOSPHATE 4 MG/ML 1 ML VIAL IVP SCH ×2 (06:38→12:37)
--- NOTE | 2022-02-02 07:27 | P.PN ---
Subjective Progress Note Date: 02/01/22 Principal diagnosis: Left knee pain questionably septic arthritis Patient is a 71-year-old male presenting to the hospital with acute left knee pain in this patient who recently did have injection to the left knee and there was concern for possible septic arthritis with the elevated white count on the knee aspirate, patient is status post left knee washout completed 0 01/29/2022. On today's evaluation that is, 02/01/2022 the patient continues to be afebrile , the patient pain to the left knee has decreased in intensity, the patient denies any chest pain or shortness of breath or cough no abdominal pain no diarrhea Objective - Vital Signs Vital signs: Vital Signs Temp 97.5 F L 02/01/22 12:15 Pulse 83 02/01/22 12:15 Resp 18 02/01/22 12:15 BP 100/57 02/01/22 12:15 Pulse Ox 98 02/01/22 12:15 FiO2 Intake & Output 01/31/22 02/01/22 02/01/22 18:59 06:59 18:59 Intake Total 260 840 Output Total 975 600 Balance -715 -600 840 Intake: Intake, IV Titration 600 Amount Sodium Chloride 0.9% 1, 600 000 ml @ 75 mls/hr IV . [id number] [facility] Rx#:[id number] Oral 260 240 Output: Urine 975 600 Other: # Voids 3 # Bowel Movements 2 - Exam GENERAL DESCRIPTION: An elderly male lying in bed in no distress RESPIRATORY SYSTEM: Unlabored breathing , decreased breath sounds at bases HEART: S1 S2 regular rate and rhythm , ABDOMEN: Soft , no tenderness EXTREMITIES: Left knee With the swelling but no redness and left leg with 2+ edema feet - Labs CBC & Chem 7: 02/01/22 05:18 02/01/22 05:18 Labs: Abnormal Lab Results - Last 24 Hours (Table) 01/31/22 01/31/22 01/31/22 Range/Units 03:59 16:43 20:05 WBC (3.8-10.6) k/uL RBC (4.30-5.90) m/uL Hgb (13.0-17.5) gm/dL Hct (39.0-53.0) % Plt Count (150-450) k/uL Neutrophils # (1.3-7.7) k/uL Lymphocytes # (1.0-4.8) k/uL Sodium (137-145) mmol/L BUN (9-20) mg/dL Glucose (74-99) mg/dL POC Glucose (mg/dL) 162 H 168 H (70-110) mg/dL Calcium (8.4-10.2) mg/dL Iron 9 L (65-175) ug/dL TIBC 211 L (228-460) ug/dL % Saturation 4.25 L (15.00-50.00) Transferrin 151.0 L (204.0-354.0) mg/dL Total Bilirubin (0.2-1.3) mg/dL AST (17-59) U/L ALT (4-49) U/L Total Protein (6.3-8.2) g/dL Albumin (3.5-5.0) g/dL 02/01/22 02/01/22 02/01/22 Range/Units 05:18 05:18 06:05 WBC 13.0 H (3.8-10.6) k/uL RBC 2.44 L (4.30-5.90) m/uL Hgb 8.0 L (13.0-17.5) gm/dL Hct 23.9 L (39.0-53.0) % Plt Count 488 H (150-450) k/uL Neutrophils # 11.8 H (1.3-7.7) k/uL Lymphocytes # 0.5 L (1.0-4.8) k/uL Sodium 133 L (137-145) mmol/L BUN 28 H (9-20) mg/dL Glucose 145 H (74-99) mg/dL POC Glucose (mg/dL) 170 H (70-110) mg/dL Calcium 8.1 L (8.4-10.2) mg/dL Iron (65-175) ug/dL TIBC (228-460) ug/dL % Saturation (15.00-50.00) Transferrin (204.0-354.0) mg/dL Total Bilirubin 0.1 L (0.2-1.3) mg/dL AST 71 H (17-59) U/L ALT 91 H (4-49) U/L Total Protein 5.2 L (6.3-8.2) g/dL Albumin 2.7 L (3.5-5.0) g/dL 02/01/22 Range/Units 11:50 WBC (3.8-10.6) k/uL RBC (4.30-5.90) m/uL Hgb (13.0-17.5) gm/dL Hct (39.0-53.0) % Plt Count (150-450) k/uL Neutrophils # (1.3-7.7) k/uL Lymphocytes # (1.0-4.8) k/uL Sodium (137-145) mmol/L BUN (9-20) mg/dL Glucose (74-99) mg/dL POC Glucose (mg/dL) 152 H (70-110) mg/dL Calcium (8.4-10.2) mg/dL Iron (65-175) ug/dL TIBC (228-460) ug/dL % Saturation (15.00-50.00) Transferrin (204.0-354.0) mg/dL Total Bilirubin (0.2-1.3) mg/dL AST (17-59) U/L ALT (4-49) U/L Total Protein (6.3-8.2) g/dL Albumin (3.5-5.0) g/dL Microbiology - Last 24 Hours (Table) 01/28/22 12:19 Blood Culture - Preliminary Blood No Growth after 96 hours 01/27/22 14:55 Anaerobic Culture - Final Knee - Left Assessment and Plan (1) Left knee pain Current Visit: Yes Status: Acute Code(s): M25.562 - PAIN IN LEFT KNEE SNOMED Code(s): 3610208158 Plan: 1patient presented to hospital with a left knee pain and locking not in this patient did have a multiple injection to the left knee recently about a week ago and this patient did have significant cloudy aspirate of the left knee with elevated white count high clinical suspicious for possible septic arthritis however the patient did have a positive crystals on analysis with a question of possible gouty arthritis however the patient do not have any history of gout in the past. 2patient uric acid came back normal 3patient CRP and sed rate are elevated. 4patient culture has been negative making septic arthritis to be less likely, patient is currently being monitor closely off antibiotics Time with Patient: Less than 30
[2022-02-02] MEDS: DILTIAZEM ORAL 30 MG TAB PO SCH (08:19)
[2022-02-02] MEDS: lisinopriL 5 MG TAB PO SCH (08:20)
[2022-02-02] MEDS: SENNOSIDES 8.6 MG TAB PO SCH (08:20)
[2022-02-02] MEDS: METOPROLOL TARTRATE 50 MG TAB PO SCH (08:20)
[2022-02-02] MEDS: CLOPIDOGREL 75 MG TAB PO SCH (08:20)
[2022-02-02] MEDS: COLCHICINE 0.6 MG EACH PO SCH (08:20)
[2022-02-02] MEDS: APIXABAN 5 MG TAB PO SCH (08:20)
[2022-02-02] MEDS ORDERED: FUROSEMIDE 20 MG TAB PO SCH (09:45)
[2022-02-02 12:02] VITALS: BP 104/57; TEMP 97.9
[2022-02-02 12:02] LABS: Glucose,Whole Blood 151 mg/dL (70-110)
[2022-02-02] MEDS: ATORVASTATIN 80 MG TAB PO SCH (12:37)
[2022-02-02 12:58] VITALS: BMI 33.1
--- NOTE | 2022-02-02 13:49 | P.PN ---
Subjective Progress Note Date: 02/02/22 HISTORY OF PRESENTING ILLNESS This is a pleasant 71-year-old male past medical history significant for cor onary artery disease s/p PCI proximal LAD most recently in 04/2021 and PCI proximal PCI 2013, hypertension, dyslipidemia. Follows with Dr. Negron. We have been asked to see in consultation for new onset atrial fibrillation with rapid ventricular response. He has been having left knee pain for some time now. He underwent viscosupplementation of the left knee on 01/05/22, cortisone injection 01/15 and is admitted for planned arthroscopic irrigation and debridement of his left knee with Dr. Monaco. Prior to procedure patient was noted to be tachycardic on the cardiac telemetry. EKG was performed which revealed atrial fibrillation with rapid ventricular response, heart rate 132. Patient did not take his cardiac medications this morning for the planned procedure. Patient denies any history of atrial fibrillation, heart failure, stroke, diabetes. He denies any history of GI bleed or bleeding ulcers. Currently has difficulty ambulating secondary to his left knee. DIAGNOSTICS Telemetry tracings indicate atrial fibrillation with HR 120s-130s Laboratory reviewed, Glucose 111 Current home medications include aspirin 81 mg daily, atorvastatin 80 mg daily, metoprolol titrate 50 mg daily, lisinopril 10 mg daily, Plavix 70 mg daily Cardiac catheterization 04/2021 revealed proximal LAD with a 70% lesion, intermediate to severe disease in RCA, intermediate disease involving the left circumflex. Patient underwent PCI to proximal LAD Most recent echocardiogram 07/2020 revealed EF of 60%, mild mitral regurgitation, mild concentric LVH, mild tricuspid regurgitation 01/28/2022 Patient examined this morning at the bedside. Patient remains in atrial fibrillation with heart rates 90-110. He remains on IV heparin and IV cardizem. Patient is s/p aspiration of left knee yesterday. Echocardiogram completed revealing ejection fraction 50-55%. 02/02/2022 Patient is s/p arthroscopic irrigation and debridement of left knee on 01/29/2022. Patient examined this point the bedside. Patient denies chest pain or pressure. He denies shortness of breath. He remains in atrial fibrillation with controlled ventricular rates. PHYSICAL EXAMINATION CONSTITUTIONAL: No apparent distress. HEENT: Head is normocephalic. Pupils are equal, round. Sclerae anicteric. Mucous membranes of the mouth are moist. No JVD. No carotid bruit. CHEST EXAMINATION: Lungs are clear to auscultation. No chest wall tenderness is noted on palpation or with deep breathing. HEART EXAMINATION: Irregular rate and rhythm. S1, S2 heard. No murmurs, gallops or rub. ABDOMEN: Soft, nontender. Positive bowel sounds. EXTREMITIES: 2+ peripheral pulses, 3+ LLE edema. NEUROLOGIC EXAMINATION: Patient is awake, alert and oriented x3. ASSESSMENT New onset paroxysmal atrial fibrillation with RVR -[id number] score 3 Left knee pain, s/p left knee aspiration 01/27, and arthroscopic irrigation and debridement of left knee on 01/29/2022 Coronary artery disease s/p PCI proximal LAD most recently in 04/2021 and PCI proximal PCI 2013 Hypertension Dyslipidemia PLAN Continue current cardiac medications Add Lasix 20mg daily for LLE swelling Patient may be discharged from a cardiac standpoint and follow up outpatient Further recommendations based on clinical course Nurse practitioner note has been reviewed by physician. Signing provider agrees with the documented findings, assessment, and plan of care. Objective - Vital Signs Vital signs: Vital Signs Temp 97.9 F 02/02/22 11:59 Pulse 61 02/02/22 11:59 Resp 20 02/02/22 08:00 BP 104/57 02/02/22 11:59 Pulse Ox 98 02/02/22 11:59 FiO2 Intake & Output 02/01/22 02/02/22 02/02/22 18:59 06:59 18:59 Intake Total 840 480 240 Output Total 500 900 250 Balance 340 -420 -10 Weight 104.8 kg Intake: Intake, IV Titration 600 Amount Sodium Chloride 0.9% 1, 600 000 ml @ 75 mls/hr IV . [id number] [facility] Rx#:[id number] Oral 240 480 240 Output: Urine 500 900 250 Other: # Voids 1 # Bowel Movements 1 - Labs CBC & Chem 7: 02/01/22 05:18 02/01/22 05:18 Labs: Abnormal Lab Results - Last 24 Hours (Table) 02/01/22 02/01/22 02/02/22 Range/Units 16:40 20:24 05:58 POC Glucose (mg/dL) 184 H 192 H 167 H (70-110) mg/dL 02/02/22 Range/Units 11:51 POC Glucose (mg/dL) 151 H (70-110) mg/dL Microbiology - Last 24 Hours (Table) 01/28/22 12:19 Blood Culture - Preliminary Blood No Growth after 96 hours
--- NOTE | 2022-02-02 14:21 | P.PN ---
Subjective Reason: Consult for medical management Initial consult done on 01/28/22 This is a 71-year-old male who we are following in consult for medical manage ment per request from orthopedic surgery. He was initially admitted on 01/26/22 by orthopedic surgery for abolition of the left knee swelling due to suspicious for septic arthritis post cortisone injection. He eventually underwent aspiration of the left knee and septic arthritis was ruled out and antibiotics discontinued. He was found to have urate crystals and started on colchicine dexamethasone. Hospital course was complicated by atrial fibrillation with RVR which is now controlled. He has been started on Eliquis since by cardiology. He is doing well this morning. The left knee is still somewhat swollen and painful but improving. He has worked with physical therapy, using walker. He denies any respiratory or GI complaints. Objective - Vital Signs Vital signs: Vital Signs Temp 97.9 F 02/02/22 11:59 Pulse 61 02/02/22 11:59 Resp 20 02/02/22 08:00 BP 104/57 02/02/22 11:59 Pulse Ox 98 02/02/22 11:59 FiO2 Intake & Output 02/01/22 02/02/22 02/02/22 18:59 06:59 18:59 Intake Total 840 480 240 Output Total 500 900 250 Balance 340 -420 -10 Weight 104.8 kg Intake: Intake, IV Titration 600 Amount Sodium Chloride 0.9% 1, 600 000 ml @ 75 mls/hr IV . [id number] [facility] Rx#:[id number] Oral 240 480 240 Output: Urine 500 900 250 Other: # Voids 1 # Bowel Movements 1 - Exam Awake alert oriented 3, no acute distress Head and neck: Anicteric sclera, extraocular movements intact, no facial asymmetry, oropharyngeal mucosa is moist without any lesions, neck is supple without rigidity, no neck masses or neck vein distention Heart: Regular rhythm and rate, S1, S2; no murmurs rubs or gallops Lungs: Breath sounds present bilateral, no wheezing, rhonchi or crackles Abdomen: Bowel sounds present throughout, abdomen is soft, nontender, nondistended, no involuntary guarding, no hernias or organomegaly, no flank tenderness Extremities: Left lower extremity edema 2+, left knee swelling, pulses present bilaterally sensitivity to light touch preserved and periphery - Labs CBC & Chem 7: 02/01/22 05:18 02/01/22 05:18 Labs: Abnormal Lab Results - Last 24 Hours (Table) 02/01/22 02/01/22 02/01/22 Range/Units 05:18 16:40 20:24 POC Glucose (mg/dL) 184 H 192 H (70-110) mg/dL RBC Folate 983 H (280 - 791) ng/mL 02/02/22 02/02/22 Range/Units 05:58 11:51 POC Glucose (mg/dL) 167 H 151 H (70-110) mg/dL RBC Folate (280 - 791) ng/mL Microbiology - Last 24 Hours (Table) 01/28/22 12:19 Blood Culture - Preliminary Blood No Growth after 96 hours Assessment and Plan Assessment: #Left knee arthritis Status post I&D of the left knee 01/29/22, fluids positive for crystals negative Gram stain and cultures Clear by orthopedic surgery and infectious disease from infectious standpoint Started on colchicine and systemic steroids for gout attack Keep leg elevated Venous Doppler negative for DVT This is improving and he is cleared by infectious disease and orthopedic surgery for discharge. Started on Lasix by cardiology #Paroxysmal atrial fibrillation with RVR Cardiology following Echo: Preserved EF and no significant vulvar abnormalities Started on Eliquis, metoprolol, Cardizem Continue to monitor on telemetry #Hyponatremia Improving nephrology following #Hypertension On lisinopril #Acute debility and gait difficulties Continue physical and occupational therapy #Coronary artery disease On antiplatelets, stat Disposition: Patient is interested to go home; he is cleared to be discharged home with home healthcare by physical and occupational therapy; He will need a walker and other recommendations per physical therapy. Okay to be discharged f rom medicine standpoint.
[2022-02-02 14:54] VITALS: PULSE 84; RESP 16
--- NOTE | 2022-02-02 15:33 | P.DS ---
Providers Date of admission: 01/27/22 14:19 Attending physician: John French MD Consults: 01/27/22 13:40 Consult Physician Urgent Consulting Provider: Grace Meraz Consult Reason/Comments: New onset atrial fibrillation Do you want consulting provider notified?: Already Contacted 01/27/22 15:38 Consult Physician Routine Consulting Provider: Porter Salmon Consult Reason/Comments: Medical Management Do you want consulting provider notified?: Yes 01/27/22 16:14 Consult Physician Urgent Consulting Provider: Mitchell Macias Consult Reason/Comments: ID Management - Left knee effusion Do you want consulting provider notified?: Yes Primary care physician: Warner Simpson Hospital Course: Date of admission: 01/26/22 Date of discharge: 02/02/22 Please note that this patient was originally admitted by orthopedic surgery for the procedure. However at some point during this hospitalization admission was switched to hospitalist service and stents widely or participating in the discharge and doing discharge summary. Disposition: Home with home healthcare services. This patient was cleared by cardiology and orthopedic surgery discharge. Please noted that orthopedic surgery sent to pharmacy medications they needed for his gouty arthritis. Also cardiology has sent prescription for Eliquis to pharmacy as well. Next time patient be discharged with some durable medical equipment. Follow-up with to be a surgical cardiology and primary care physician. I advised the patient to see primary care physician in next 23 days and obtain follow-up CBC. Since patient has been started on Eliquis, patient will be discharged home on Eliquis and Plavix and aspirin will be discontinued. Discharge diagnosis Left knee arthritis due to gout attack Paroxysmal A. fib with RVR, new onset Coronary artery disease Hypertension Mild hyponatremia Gait difficulties Consultants Hospitalist Cardiology Orthopedic surgery Infectious diseases Procedures: Aspiration left knee Fluid analysis: Negative Gram stain negative bacterial cultures. [place] monosodium urate crystals identified Reason for admission This patient was admitted on 01/26/22 due to swelling and pain in the left knee. He is status post cortisone injection in the left knee. He was admitted by orthopedic service to rule out septic arthritis. Hospital course Patient was initially started on broad-spectrum antibiotics. He underwent aspiration on the left knee on 01/27/22. Fluid cultures microbiology were negative on Gram stain and cultures. The sodium urate intracellular crystals were identified. Blood cultures remain negative as well. In view of this on antibiotics or discontinue the patient was started on colchicine and dexamethasone with improvement in his symptoms. Hospital course was complicated by paroxysmal atrial fibrillation with RVR. Cardiology evaluated the patient patient had elevated thrombo-embolic risk and was started on Eliquis. Continued on Cardizem and metoprolol dose was increased. This controlled his A. fib and he converted to normal sinus rhythm. Patient cleared for discharge by above services including infectious disease and now discharged home on Eliquis metop rolol. He is also being discharged on colchicine and taper of prednisone. Plan - Discharge Summary Discharge Rx Participant: No New Discharge Prescriptions: New Clindamycin [Cleocin] 150 mg PO QID 10 Days #40 cap Furosemide [Lasix] 20 mg PO DAILY 2 Days #2 tab Metoprolol Tartrate [Lopressor] 100 mg PO BID #30 tab Apixaban [Eliquis] 5 mg PO BID 30 Days #60 tab Colchicine [Colcrys] 0.6 mg PO DAILY #10 tablet HYDROcodone/APAP 7.5-325MG [[place] 7.5] 1 each PO Q6HR PRN #28 tab PRN Reason: Pain predniSONE See Taper PO DIRECTED #20 tab Ferrous Sulfate [Feosol] 325 mg PO BID #60 tab Continue Nitroglycerin Sl Tabs [Nitrostat] 0.4 mg SUBLINGUAL DIRECTED PRN PRN Reason: Chest Pain Atorvastatin [Lipitor] 80 mg PO DAILY Montelukast [Singulair] 10 mg PO DAILY Cetirizine HCl [Zyrtec] 10 mg PO HS Clopidogrel [Plavix] 75 mg PO DAILY Acetaminophen [Tylenol Extra Strength] 1,000 mg PO BID Discontinued Metoprolol Tartrate 50 mg PO DAILY lisinopriL [Zestril] 10 mg PO DAILY Aspirin [Adult Low Dose Aspirin EC] 81 mg PO DAILY diphenhydrAMINE [Benadryl] 25 mg PO DAILY PRN PRN Reason: Allergy Symptoms methylPREDNISolone [Medrol Dose Pack] 0 mg PO DIRECTED tadalafiL [Cialis] 5 mg PO DAILY Acetaminophen/Diphenhydramine [Tylenol PM 500-25mg] 1 tab PO HS PRN PRN Reason: Insomnia Discharge Medication List Atorvastatin [Lipitor] 80 mg PO DAILY 10/14/15 [History] Nitroglycerin Sl Tabs [Nitrostat] 0.4 mg SUBLINGUAL DIRECTED PRN 10/14/15 [History] Acetaminophen [Tylenol Extra Strength] 1,000 mg PO BID 01/27/22 [History] Cetirizine HCl [Zyrtec] 10 mg PO HS 01/27/22 [History] Clopidogrel [Plavix] 75 mg PO DAILY 01/27/22 [History] Montelukast [Singulair] 10 mg PO DAILY 01/27/22 [History] Apixaban [Eliquis] 5 mg PO BID 30 Days #60 tab 01/29/22 [Rx] Clindamycin [Cleocin] 150 mg PO QID 10 Days #40 cap 01/30/22 [Rx] Colchicine [Colcrys] 0.6 mg PO DAILY #10 tablet 01/30/22 [Rx] HYDROcodone/APAP 7.5-325MG [[place] 7.5] 1 each PO Q6HR PRN #28 tab 01/31/22 [Rx] Ferrous Sulfate [Feosol] 325 mg PO BID #60 tab 02/02/22 [Rx] Furosemide [Lasix] 20 mg PO DAILY 2 Days #2 tab 02/02/22 [Rx] Metoprolol Tartrate [Lopressor] 100 mg PO BID #30 tab 02/02/22 [Rx] predniSONE See Taper PO DIRECTED #20 tab 02/02/22 [Rx] Follow up Appointment(s)/Referral(s): Biju Pascual PAC [PHYSICIAN INSIDE ACCOUNT REPRESENTATIVE] - 02/12/22 Parker Negron MD [STAFF PHYSICIAN] - 2 Weeks [facility] [employer] [NON-STAFF] - As Needed (Supplier of crutches) [facility], [NON-STAFF] - Patient Instructions/Handouts: *Surgery [facility] - (Adv Ortho) Arthroscopic Knee Post-Op Instructions Discharge Disposition: HOME WITH HOME HEALTH SERVICES Plan of Treatment: Please see your primary care physician within one week and obtain follow-up blood work: CBC and BMP
--- NOTE | 2022-02-02 15:40 | P.PN ---
Subjective Progress Note Date: 02/02/22 Principal diagnosis: Left knee synovitis/gout Patient was seen at bedside this morning sitting up in chair. He says his knee is feeling much better today. He says he was able to get up and stand up and walk with therapy and bear more weight on his left lower extremity. Patient does note that the swelling has decreased in his left lower extremity at this time. However, patient notes he still having some pain in the left lower extremity when he tries to flex his knee. Patient denies chest pain, fever, shortness breath, nausea, vomiting, change in vision, loss of bowel/bladder control. Objective - Vital Signs Vital signs: Vital Signs Temp 97.9 F 02/02/22 11:59 Pulse 84 02/02/22 14:00 Resp 16 02/02/22 14:00 BP 104/57 02/02/22 11:59 Pulse Ox 98 02/02/22 11:59 FiO2 Intake & Output 02/01/22 02/02/22 02/02/22 18:59 06:59 18:59 Intake Total 840 480 240 Output Total 500 900 250 Balance 340 -420 -10 Weight 104.8 kg Intake: Intake, IV Titration 600 Amount Sodium Chloride 0.9% 1, 600 000 ml @ 75 mls/hr IV . [id number] [facility] Rx#:[id number] Oral 240 480 240 Output: Urine 500 900 250 Other: # Voids 1 # Bowel Movements 1 - Exam steri-strips present over portal sites. Portal sites appear to be healing well. Negative for any fluctuance/purulence. There is minimal swelling throughout left knee. There is 1+ edema along the left foot and ankle. Patient is able to move left lower extremity albeit with a moderate amount of pain in the knee and ankle. Patient lacks about 10 of full extension in the left knee. Patient has full range of motion bilateral upper extremities and right lower extremity. Patient has good strength in bilateral upper extremities and right lower extremity. Neurovascular status intact. Radial pulses intact, 2+ bilaterally. Cap refill under 3 seconds in digits of the upper extremities. Negative Homans bilaterally - Labs CBC & Chem 7: 02/01/22 05:18 02/01/22 05:18 Labs: Abnormal Lab Results - Last 24 Hours (Table) 02/01/22 02/01/22 02/01/22 Range/Units 05:18 16:40 20:24 POC Glucose (mg/dL) 184 H 192 H (70-110) mg/dL RBC Folate 983 H (280 - 791) ng/mL 02/02/22 02/02/22 Range/Units 05:58 11:51 POC Glucose (mg/dL) 167 H 151 H (70-110) mg/dL RBC Folate (280 - 791) ng/mL Microbiology - Last 24 Hours (Table) 01/28/22 12:19 Blood Culture - Preliminary Blood No Growth after 120 hours Assessment and Plan Assessment: 1. Left knee synovitis/gout/possible septic arthritis Postoperative day #4 status post Arthroscopic irrigation and debridement left knee/synovectomy of the medial, lateral, and patellofemoral compartment Plan: 1. Left knee synovitis/gout/possible septic arthritis - surgery performed , 01/29/2022 - Arthroscopic irrigation and debridement left knee /synovectomy of the medial, lateral, and patellofemoral compartment. Patient stable at bedside this morning. Venous Doppler ultrasound of left lower extremity negative for DVT. Continue colchicine. Patient is stable for discharge home from an orthopedic standpoint. recommend patient to follow up in outpatient setting in 2 weeks. Orthopedics is signing off at this time. please do not hesitate to contact us for any further questions. 2. Appreciate medical and ID management 3. Pain management - [facility] 4. DVT prophylaxis -Eliquis; Plavix 5. GI ppx - senna 6. PT/OT - weightbearing as tolerated with walker as needed 7. Encourage incentive spirometer use Time with Patient: Less than 30
[2022-02-02 16:08] LABS: Glucose,Whole Blood 141 mg/dL (70-110)
--- NOTE | 2022-02-10 00:13 | P.PN ---
Subjective Progress Note Date: 02/02/22 Principal diagnosis: Left knee pain questionably septic arthritis Patient is a 71-year-old male presenting to the hospital with acute left knee pain in this patient who recently did have injection to the left knee and there was concern for possible septic arthritis with the elevated white count on the knee aspirate, patient is status post left knee washout completed 0 01/29/2022. On today's evaluation that is, 02/02/2022 the patient denies any fever or chills, the patient pain to the left knee has decreased in intensity, the patient denies chest pain shortness of breath or cough no nausea no vomiting no abdominal pain no diarrhea overall feeling better Objective - Vital Signs Vital signs: Vital Signs Temp 97.5 F L 02/02/22 08:00 Pulse 86 02/02/22 08:00 Resp 20 02/02/22 08:00 BP 123/80 02/02/22 08:00 Pulse Ox 98 02/02/22 08:00 FiO2 Intake & Output 02/01/22 02/02/22 02/02/22 18:59 06:59 18:59 Intake Total 840 480 Output Total 500 900 Balance 340 -420 Intake: Intake, IV Titration 600 Amount Sodium Chloride 0.9% 1, 600 000 ml @ 75 mls/hr IV . [id number] [facility] Rx#:[id number] Oral 240 480 Output: Urine 500 900 Other: # Voids 1 # Bowel Movements 1 - Exam GENERAL DESCRIPTION: An elderly male lying in bed in no distress RESPIRATORY SYSTEM: Unlabored breathing , decreased breath sounds at bases HEART: S1 S2 regular rate and rhythm , ABDOMEN: Soft , no tenderness EXTREMITIES: Left knee With the swelling but no redness and left leg with 2+ e suma feet - Labs CBC & Chem 7: 02/01/22 05:18 02/01/22 05:18 Labs: Abnormal Lab Results - Last 24 Hours (Table) 02/01/22 02/01/22 02/01/22 Range/Units 11:50 16:40 20:24 POC Glucose (mg/dL) 152 H 184 H 192 H (70-110) mg/dL 02/02/22 Range/Units 05:58 POC Glucose (mg/dL) 167 H (70-110) mg/dL Microbiology - Last 24 Hours (Table) 01/28/22 12:19 Blood Culture - Preliminary Blood No Growth after 96 hours Assessment and Plan (1) Left knee pain Status: Acute Code(s): M25.562 - PAIN IN LEFT KNEE SNOMED Code(s): 0689248903 Plan: 1patient presented to hospital with a left knee pain and locking not in this patient did have a multiple injection to the left knee recently about a week ago and this patient did have significant cloudy aspirate of the left knee with elevated white count high clinical suspicious for possible septic arthritis however the patient did have a positive crystals on analysis with a question of possible gouty arthritis however the patient do not have any history of gout in the past. 2patient uric acid came back normal 3patient CRP and sed rate are elevated. 4patient culture has been negative making septic arthritis to be less likely, patient is currently doing well off antibiotics and recommending no antibiotics on discharge Time with Patient: Less than 30
== END 2022-02-02 17:18 | disposition home health service (06) | DRG 554 ==
LOC: OR 12:06 → 3SCARD 14:19 → OR 14:19 → 3SCARD 18:08
PROVIDERS: ADMIT Internal Medicine; ATTEND Internal Medicine
PROC: 0S9D3ZX Drainage of Left Knee Joint, Percutaneous Approach, Diagnostic (ICD-10-PCS; 2022-01-27)
PROC: 3E1U48Z Irrigation of Joints using Irrigating Substance, Percutaneous Endoscopic Approach (ICD-10-PCS; principal; 2022-01-29 10:00)
PROC: 0JDP3ZZ Extraction of Left Lower Leg Subcutaneous Tissue and Fascia, Percutaneous Approach (ICD-10-PCS; principal; 2022-01-29 10:00)
DX: M10.9 Gout, unspecified (principal); E22.2 Syndrome of inappropriate secretion of antidiuretic hormone; M11.862 Other specified crystal arthropathies, left knee; D64.9 Anemia, unspecified; D72.829 Elevated white blood cell count, unspecified; E78.00 Pure hypercholesterolemia, unspecified; E78.5 Hyperlipidemia, unspecified; I10 Essential (primary) hypertension; I25.10 Atherosclerotic heart disease of native coronary artery without angina pectoris; R26.9 Unspecified abnormalities of gait and mobility; I48.0 Paroxysmal atrial fibrillation; G47.30 Sleep apnea, unspecified; J44.9 Chronic obstructive pulmonary disease, unspecified; M17.12 Unilateral primary osteoarthritis, left knee; M65.9 Synovitis and tenosynovitis, unspecified; Z53.9 Procedure and treatment not carried out, unspecified reason; Z79.02 Long term (current) use of antithrombotics/antiplatelets; Z79.82 Long term (current) use of aspirin; Z79.899 Other long term (current) drug therapy; Z95.5 Presence of coronary angioplasty implant and graft; Z28.310 Unvaccinated for COVID-19
CPT/HCPCS: 80048; 80053; 80202; 82607; 82728; 82747; 83540; 83550; 83735; 84443; 84550; 85025; 85027; 85610; 85652; 85730; 86140; 87040; 87070; 87075; 87102; 87205; 89050; 89060; 93306

== ENCOUNTER → 2022-02-12 | Outpatient (CLI) | payer MEDICARE ==
[2022-02-12 15:24] LABS: HCT 26.8 % (39.6-50.0); HGB 8.1 g/dL (13.0-17.0); MCHC 30.2 g/dL (32.0-37.0); MCV 96.1 fL (80.0-97.0); Mean Platelet Volume 9.4 fL (9.5-12.2); NRBC Per 100 WBC 0 /100 WBCS (0.0-0.0); Platelet Count 492 X 10*3/uL (140-440); RBC 2.79 X 10*6/uL (4.40-5.60); RDW 14.2 % (11.5-14.5); WBC 8.68 X 10*3/uL (4.50-10.00)
[2022-02-12 16:21] LABS: African American GFR (CKD) 78.4 (60.0-200.0); Anion Gap 11.9 mmol/L (10.00-18.00); BUN/Creat Ratio 23.36 Ratio (12.00-20.00); Blood Urea Nitrogen 25.7 mg/dL (9.0-27.0); C Reactive Protein 10.9 mg/dL (0.00-0.80); Carbon Dioxide 24.1 mmol/L (20.0-27.5); Non-African American GFR(CKD) 67.7 (60.0-200.0); Potassium 4.1 mmol/L (3.5-5.5)
[2022-02-12 16:26] LABS: Erythrocyte Sedimentation Rate 80 mm/Hr (0-20)
== END | disposition home or self-care (01) ==
LOC: LABWHC1 09:43
PROVIDERS: ATTEND Orthopaedic Surgery
DX: M25.562 Pain in left knee (principal); M25.462 Effusion, left knee
CPT/HCPCS: 36415; 80048; 85027; 85652; 86140

== ENCOUNTER → 2022-02-13 | Outpatient (CLI) | payer MEDICARE ==
--- NOTE | 2022-02-14 00:08 | MR ---
EXAMINATION TYPE: MR knee LT wo con DATE OF EXAM: 02/13/2022 COMPARISON: 09/03/2011 HISTORY: Left knee pain Multiplanar multiecho imaging of the left knee without contrast. There is extensive soft tissue subcutaneous edema around the knee. There is narrowing of the joint sp aces especially the medial joint space with spurring of the femoral and tibial condyles. The anterior and posterior cruciate ligaments are intact. There is a mild to moderate knee joint effusion. The co llateral ligaments are intact. There is abnormal increased signal in the base of the tibial spines an d the intercondylar distal femur on the T2 images. There is severe thinning of the posterior horn of the medial meniscus which is mostly obliterated. Th is could be postsurgical changes. There is some thinning of the anterior horn of the medial meniscus. The lateral meniscus appears fairly normal. No fracture line seen. 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 Knee joint effusion. Extensive tear of the posterior horn medial meniscus which may also include postsurgical changes. There is edema in the distal femur and proximal tibia as above consistent with bone bruise. Extensive subcutaneous edema.
== END | disposition home or self-care (01) ==
LOC: RADMRIMAIN 20:22
PROVIDERS: ATTEND Orthopaedic Surgery
DX: M17.12 Unilateral primary osteoarthritis, left knee (principal); M23.322 Other meniscus derangements, posterior horn of medial meniscus, left knee

== ENCOUNTER 2024-02-01 08:44 | Day surgery (SDC) | payer MEDICARE ==
[2024-01-28 11:15] VITALS: BMI 35.9
[~2024-02-01 08:44] MED LIST changes: -CLINDAMYCIN 600 MG in DEXTROSE 5% IN WATER 50 ML IVPB PRN; +SODIUM CHLORIDE 0.9% 1,000 ML IV SCH
[2024-02-01] MEDS: IV FLUID CONTINUATION 1,000 ML IV ONE (09:26)
[2024-02-01] MEDS: LACTATED RINGERS 1,000 ML IV SCH (09:26)
[2024-02-01 09:44] LABS: African American GFR (CKD) >90 (>60 ml/min/1.73 sqM); Anion Gap 7 mmol/L; Blood Urea Nitrogen 18 mg/dL (9-20); Calcium 9.2 mg/dL (8.4-10.2); Carbon Dioxide 22 mmol/L (22-30); Chloride 112 mmol/L (98-107); Glucose 93 mg/dL (74-99); Non-African American GFR(CKD) 86 (>60 ml/min/1.73 sqM); Sodium 141 mmol/L (137-145)
[2024-02-01] MEDS: BENZOCAINE SPRAY 1 CAN TOPICAL ONE ×2 (09:57→10:14)
[2024-02-01] MEDS ORDERED: LIDOCAINE 1% INJ 10MG/ML (20 ML MDV) ONE (10:00)
[2024-02-01] MEDS ORDERED: PROPOFOL 10 MG/ML 20 ML VIAL IV ONE (10:00)
[2024-02-01 10:34] VITALS: TEMP 97.6
--- NOTE | 2024-02-01 11:19 | P.PCN ---
Date of Procedure: 02/01/24 Operative Findings: TRANSESOPHAGEAL ECHOCARDIOGRAM WRINKLE CHASER: NIRAJ CALVERT MD, RPVI INDICATION: Rule out intracardiac thrombus before cardioversion SEDATION: Conscious sedation COMPLICATION: None LEVEL OF SEDATION The procedure was performed with TRUCK DISPATCHER in the room using propofol PROCEDURE DESCRIPTION: After obtaining an informed consent, the patient was brought to transesophageal echocardiogram room. Pulse oximetry and heart monitors were attached to the patient. The patient throat was sprayed using lidocaine. The patient was turned into left lateral position. After that a bite guard was placed. After an appropriate conscious sedation was initiated, the transesophageal echocardiogram was advanced through a bite guard into the mid esophagus. A 2-D echocardiogram images, color Doppler images, continuous wave images, pulse-wave images, of various cardiac structure were performed. After that the transesophageal echocardiogram probe was advanced into the stomach and fixed to obtain transgastric view was. The probe was brought into the mid esophagus. Inter-atrial septum was interrogated using 2D images, color Doppler images, and then contrast study. After that transesophageal echocardiogram was withdrawn out and upon withdrawing the descending thoracic aorta all the way up to the arch was evaluated. CONCLUSION: 1. Normal LV systolic function with EF around 50% 2. Mildly thickened mitral valve leaflets with moderate to severe mitral regurgitation 3. Intact left atrial appendage 4. Intact interatrial septum 5. No evidence of pericardial effusion
--- NOTE | 2024-02-01 11:20 | P.PCN ---
Date of Procedure: 02/01/24 Operative Findings: Cardioversion Report Performing physician Parker Negron M.D. Procedure performed Attempted l cardioversion of atrial fibrillation to normal sinus mechanism was unsuccessful x 2 Indication Symptomatic atrial fibrillation Complication None Level of sedation The procedure was performed under deep sedation using propofol with SCREEN TACKER in the room Procedure description After obtaining an informed consent the patient was brought to the recovery room. Sedation was introduced using propofol with SCREEN TACKER in the room. Subsequently attempted cardioversion was performed x 2 and the patient remains in atrial fibrillation with controlled heart rate Postprocedure management Continue the current medical regimen Continue oral anticoagulation Follow-up with the patient
[2024-02-01 11:45] VITALS: BP 120/67; PULSE 52; RESP 20
== END 2024-02-01 12:03 ==
LOC: OR 08:44
PROVIDERS: ATTEND Internal Medicine Interventional Cardiology
DX: I48.0 Paroxysmal atrial fibrillation (principal); I34.0 Nonrheumatic mitral (valve) insufficiency; I10 Essential (primary) hypertension; G47.33 Obstructive sleep apnea (adult) (pediatric); I25.2 Old myocardial infarction; Z88.1 Allergy status to other antibiotic agents; Z79.82 Long term (current) use of aspirin; Z79.01 Long term (current) use of anticoagulants; Z79.899 Other long term (current) drug therapy
CPT/HCPCS: 93312; 93320; 93325; 92960; 80048; J2001; J2704

== ENCOUNTER 2024-04-03 06:28 | Observation (INO) | payer MEDICARE ==
[2024-04-03] MEDS ORDERED: SODIUM CHLORIDE 0.9% 250 ML BAG ONE (07:30)
[2024-04-03] MEDS ORDERED: PROPOFOL 10 MG/ML 20 ML VIAL IV ONE (07:30)
[2024-04-03] MEDS ORDERED: LIDOCAINE 1% INJ 10MG/ML (20 ML MDV) ONE (07:30)
[2024-04-03] MEDS ORDERED: AMIODARONE 100 MG TAB ONE (08:00)
[2024-04-03] MEDS ORDERED: METOPROLOL SUCCINATE (ER) 50 MG TAB.ER.24H PO ONE ×2 (22:07)
[2024-04-03] MEDS ORDERED: APIXABAN 5 MG TAB ONE ×2 (22:08)
[2024-04-04] MEDS ORDERED: ATORVASTATIN 80 MG TAB ONE ×2 (07:40)
[2024-04-04] MEDS ORDERED: ASPIRIN 81 MG ONE ×2 (07:40)
[2024-04-04] MEDS ORDERED: allopurinoL 300 MG TAB PO ONE ×2 (07:40)
[2024-04-04] MEDS ORDERED: APIXABAN 5 MG TAB ONE ×2 (07:41)
[2024-04-04] MEDS ORDERED: MONTELUKAST 10 MG TAB ONE ×2 (07:41)
--- NOTE | 2024-04-07 15:56 | PCN ---
PROCEDURE NOTE PERFORMING PHYSICIAN: Dr. Parker Negron. PROCEDURE PERFORMED: Attempted cardioversion of atrial fibrillation to normal sinus mechanism. COMPLICATION: None. LEVEL OF SEDATION: The procedure was performed using propofol with DEDICATED TRUCK DRIVER in the room. PROCEDURE DESCRIPTION: After a transesophageal echocardiogram was performed and intracardiac thrombus ruled out, we attempted cardioversion 3 times and that was unsuccessful. The procedure was completed. There was no complication. MMODL / IJN: [id number] /
--- NOTE | 2024-04-07 15:56 | CC ---
CARDIAC CATHETERIZATION REPORT PERFORMING PHYSICIAN: Dr. Parker Negron. PROCEDURE PERFORMED: Transesophageal echocardiogram. INDICATION: Rule out intracardiac thrombus before cardioversion. COMPLICATION: None. LEVEL OF SEDATION: The procedure was performed using propofol with BLOW MOLDING MACHINE OPERATOR in the room. PROCEDURE DESCRIPTION: After obtaining an informed consent, the patient was brought to the recovery room. The patient was turned into left lateral position. A pulse oximetry and heart rate monitors were attached to the patient. Subsequently, the patient's throat was sprayed using lidocaine and subsequently the transesophageal echocardiogram was advanced to the mid esophageal where 2D echocardiogram images as well as color Doppler and continuous- wave Doppler and pulse Doppler performed. The procedure was completed. There was no complication. CONCLUSION: 1. Mildly impaired LV function with EF around 45%. 2. Mild to moderate mitral and tricuspid regurgitation. 3. Trileaflet aortic valve with aortic sclerosis. No stenosis or insufficiency. 4. Intact left atrial appendage. 5. Intact interatrial septum. MMODL / IJN: [id number] /
--- NOTE | 2024-04-07 15:56 | CC ---
CARDIAC CATHETERIZATION REPORT PERFORMING PHYSICIAN: Dr. Parker Negron. PROCEDURE PERFORMED: Transesophageal echocardiogram. INDICATION: Rule out intracardiac thrombus before cardioversion. COMPLICATION: None. LEVEL OF SEDATION: The procedure was performed using propofol with FLAGSETTER in the room. PROCEDURE DESCRIPTION: After obtaining an informed consent, the patient was brought to the recovery room. The patient was turned into left lateral position. A pulse oximetry and heart rate monitors were attached to the patient. Subsequently, the patient's throat was sprayed using lidocaine and subsequently the transesophageal echocardiogram was advanced to the mid esophageal where 2D echocardiogram images as well as color Doppler and continuous- wave Doppler and pulse Doppler performed. The procedure was completed. There was no complication. CONCLUSION: 1. Mildly impaired LV function with EF around 45%. 2. Mild to moderate mitral and tricuspid regurgitation. 3. Trileaflet aortic valve with aortic sclerosis. No stenosis or insufficiency. 4. Intact left atrial appendage. 5. Intact interatrial septum. MMODL / IJN: [id number] /
--- NOTE | 2024-04-07 15:57 | DS ---
DISCHARGE SUMMARY BRIEF HISTORY: The patient was admitted to the hospital to undergo cardioversion. We attempted cardioversion of 3 times, but the patient continues to be in AFib. Because he was somewhat bradycardic with heart rate in the upper 40s, he was kept overnight. We did decrease the dose of amiodarone and metoprolol. The patient was seen the following day. His heart rate has improved. He will be going to be discharged home on the lower dose of metoprolol and amiodarone and he will be seen in the office. MMODL / IJN: [id number] /
== END 2024-04-04 10:03 | disposition home or self-care (01) ==
LOC: OR 06:28 → 6NMEDSUR 11:05 → OR 04-04 10:03
PROVIDERS: ADMIT Internal Medicine Interventional Cardiology; ATTEND Internal Medicine Interventional Cardiology
DX: I48.0 Paroxysmal atrial fibrillation (principal); R00.1 Bradycardia, unspecified; I08.1 Rheumatic disorders of both mitral and tricuspid valves; I70.0 Atherosclerosis of aorta; I25.10 Atherosclerotic heart disease of native coronary artery without angina pectoris; I10 Essential (primary) hypertension; E78.5 Hyperlipidemia, unspecified; E66.3 Overweight; I89.0 Lymphedema, not elsewhere classified; Z79.01 Long term (current) use of anticoagulants; Z79.82 Long term (current) use of aspirin; Z79.899 Other long term (current) drug therapy; Z88.1 Allergy status to other antibiotic agents; Z88.8 Allergy status to other drugs, medicaments and biological substances
CPT/HCPCS: 92960

== ENCOUNTER 2024-08-17 05:54 | Day surgery (SDC) | payer MEDICARE ==
[2024-08-10 17:51] VITALS: BMI 35.9
[2024-08-17] MEDS ORDERED: fentaNYL (PF) 50 MCG/ML 2 ML AMP IV PRN (06:10)
[2024-08-17] MEDS: IV FLUID CONTINUATION 1,000 ML IV ONE (06:37)
[2024-08-17] MEDS: SODIUM CHLORIDE 0.9% 1,000 ML IV SCH (06:37)
[2024-08-17] MEDS ORDERED: LIDOCAINE 1% INJ 10MG/ML (20 ML MDV) ONE (07:14)
[2024-08-17] MEDS ORDERED: fentaNYL (PF) 50 MCG/ML 2 ML AMP ONE (07:14)
[2024-08-17] MEDS ORDERED: PHENYLEPHRINE 10 MG/ML VIAL ONE (07:14)
[2024-08-17] MEDS ORDERED: SUCCINYLCHOLINE CHLORIDE 200 MG/10 ML VIAL IV ONE (07:14)
[2024-08-17] MEDS ORDERED: PROPOFOL 10 MG/ML 20 ML VIAL IV ONE (07:14)
[2024-08-17] MEDS ORDERED: HEPARIN SODIUM,PORCINE 5,000 UNIT/ML 1 ML VIAL ONE (07:14)
[2024-08-17] MEDS ORDERED: HEPARIN SODIUM,PORCINE 10,000 UNIT/ML 1 ML VIAL ONE (07:14)
[2024-08-17] MEDS ORDERED: ONDANSETRON 4 MG/2 ML VIAL ONE (07:14)
[2024-08-17 07:17] LABS: Anisocytosis Slight; Basophils % (A) 0 %; Eosinophils # (A) 0.3 k/uL (0-0.7); Eosinophils % (A) 3 %; HCT 43.3 % (39.0-53.0); HGB 13.8 gm/dL (13.0-17.5); Lymphocytes # (A) 2.4 k/uL (1.0-4.8); Lymphocytes % (A) 25 %; MCHC 31.9 g/dL (31.0-37.0); MCV 84.9 fL (80.0-100.0); Mean Platelet Volume 7.8; Monocytes # (A) 0.8 k/uL (0-1.0); Monocytes % (A) 8 %; Neutrophils # (A) 5.9 k/uL (1.3-7.7); Neutrophils % (A) 62 %; Platelet Count 245 k/uL (150-450); RDW 18.5 % (11.5-15.5); WBC 9.5 k/uL (3.8-10.6)
[2024-08-17 07:37] LABS: ALT 42 U/L (4-49); AST 37 U/L (17-59); African American GFR (CKD) 63 (>60 ml/min/1.73 sqM); Albumin 4.4 g/dL (3.5-5.0); Alkaline Phosphatase 117 U/L (38-126); Anion Gap 9 mmol/L; Blood Urea Nitrogen 30 mg/dL (9-20); Calcium 9.6 mg/dL (8.4-10.2); Carbon Dioxide 25 mmol/L (22-30); Chloride 105 mmol/L (98-107); Glucose 94 mg/dL (74-99); Non-African American GFR(CKD) 54 (>60 ml/min/1.73 sqM); Potassium 4.4 mmol/L (3.5-5.1); Sodium 139 mmol/L (137-145); Total Bilirubin 0.3 mg/dL (0.2-1.3); Total Protein 7.1 g/dL (6.3-8.2)
[2024-08-17] MEDS: HEPARIN SOD,PORK IN 0.45% NACL 25,000 UNIT in 0.45% NACL 1 250ML.BAG IV ONE ×2 (07:45→07:46)
[2024-08-17] MEDS: HEPARIN SODIUM,PORCINE 10,000 UNIT in SODIUM CHLORIDE 0.9% 1,000 ML IRRIGATION ONE (07:46)
[2024-08-17] MEDS: HEPARIN SODIUM,PORCINE (1 ML) 2,500 UNIT in SODIUM CHLORIDE 0.9% 250 ML IRRIGATION ONE (07:47)
--- NOTE | 2024-08-17 08:20 | P.HPCAR ---
History of Present Illness This is Dr. Kendrick dictating an H/P on this patient The patient was interviewed and examined IMPRESSION / ASSESSMENT: Persistent atrial fibrillation, symptomatic with tiredness fatigue Failed treatment with amiodarone and electrical cardioversion LV function of the lower limits of normal Moderate to severe mitral regurgitation Coronary artery disease stenting to the proximal LAD Very mild hypothyroidism, previously on amiodarone, TSH 5.86 PLAN: Heparin dose calculated for intraoperative use Proceed with A-fib ablation Continue anticoagulation Recheck TSH level after 3 months once amiodarone has washed out completely HPI Patient continues to complain of tiredness fatigue and shortness of breath. His left ventricular ejection fraction is at the lower limits of normal. He denies any fever chills cough expectoration. He has had no chest pain or anginal-like symptoms in the last 1 to 2 weeks No orthopnea PND No syncope ROS: No fever chills or rigors, no cough, phlegm or expectoration, no nausea, vomiting or diarrhea, no hematuria, dysuria, no musculoskeletal complaints, no strokes or seizures, no skin lesions. EXAMINATION: Pulse rate at rest 91 beats a minute, afebrile Breathing nonlabored Blood pressure 160/79 mmHg pulse ox 97% Rhythm is irregular Soft systolic murmur at the apex Clear lungs no rhonchi no crackles Abdomen soft nontender No lower extremity edema REVIEW OF LABS, ECG & MEDICAL DATA Medications include metoprolol succinate 50 mg twice daily, atorvastatin 80 mg daily, aspirin 81 mg daily, Eliquis 5 mg twice daily White count 9.5 thousand, hemoglobin 13.8 g/dL platelet count 245,000 Electrolytes normal BUN 30 and creatinine 1.3 TSH 5.86 Physical Exam Vitals: Vital Signs Temp Pulse Resp BP Pulse Ox 08/17/24 06:35 97.8 F 91 18 161/79 97 Intake and Output 08/16/24 08/17/24 08/17/24 22:59 06:59 14:59 Intake Total 20 0 Balance 20 0 Intake: IV 20 0 Other: Weight 111.8 kg Past Medical History Past Medical History: Atrial Fibrillation, Coronary Artery Disease (CAD), Chest Pain / Angina, Hyperlipidemia, Sleep Apnea/CPAP/BIPAP Additional Past Medical History / Comment(s): see Dr Kendrick's H&P, no CPAP used History of Any Multi-Drug Resistant Organisms: None Reported Past Surgical History: Appendectomy, Back Surgery, Heart Catheterization With Stent, Joint Replacement, Orthopedic Surgery, Tonsillectomy Additional Past Surgical History / Comment(s): total 3 cardiac stents, rt elbow surgery, candelaria knee replacements, lt hand x2 , dental implants,cardioversion,TEEs Past Anesthesia/Blood Transfusion Reactions: No Reported Reaction Additional Past Anesthesia/Blood Transfusion Reaction / Comment(s): no blood transfusion Date of Last Stent Placement:: Smoking Status: Never smoker - Past Family History Mother Family Medical History: Cancer Physical Examination Vital Signs Temp Pulse Resp BP Pulse Ox 08/17/24 06:35 97.8 F 91 18 161/79 97 Intake and Output 08/16/24 08/17/24 08/17/24 22:59 06:59 14:59 Intake Total 20 0 Balance 20 0 Intake: IV 20 0 Other: Weight 111.8 kg Results 08/17/24 06:20 08/17/24 06:20 Cardiac Enzymes 08/17/24 Range/Units 06:20 AST 37 (17-59) U/L CBC 08/17/24 Range/Units 06:20 WBC 9.5 (3.8-10.6) k/uL RBC 5.10 (4.30-5.90) m/uL Hgb 13.8 (13.0-17.5) gm/dL Hct 43.3 (39.0-53.0) % Plt Count 245 (150-450) k/uL Comprehensive Metabolic Panel 08/17/24 Range/Units 06:20 Sodium 139 (137-145) mmol/L Potassium 4.4 (3.5-5.1) mmol/L Chloride 105 (98-107) mmol/L Carbon Dioxide 25 (22-30) mmol/L BUN 30 H (9-20) mg/dL Creatinine 1.31 H (0.66-1.25) mg/dL Glucose 94 (74-99) mg/dL Calcium 9.6 (8.4-10.2) mg/dL AST 37 (17-59) U/L ALT 42 (4-49) U/L Alkaline Phosphatase 117 (38-126) U/L Total Protein 7.1 (6.3-8.2) g/dL Albumin 4.4 (3.5-5.0) g/dL Current Medications Generic Name Dose Route Start Last Admin Trade Name Freq PRN Reason Stop Dose Admin Fentanyl Citrate 50 mcg 08/17/24 06:10 Fentanyl (Pf) 50 Mcg/Ml 2 Ml Amp IV 08/18/24 06:09 Q3M PRN Phase I - Pain Control Sodium Chloride 1,000 mls @ 20 mls/hr 08/17/24 06:10 08/17/24 06:37 Saline 0.9% IV 09/16/24 06:09 20 mls/hr .Q24H [facility] Administration Lactated Ringer's 1,000 mls @ 20 mls/hr 08/17/24 06:10 Lactated Ringers IV 09/16/24 06:09 .Q24H [facility] Intake and Output 08/16/24 08/17/24 08/17/24 22:59 06:59 14:59 Intake Total 20 0 Balance 20 0 Intake: IV 20 0 Other: Weight 111.8 kg 08/17/24 06:20 08/17/24 06:20
[2024-08-17] MEDS ORDERED: ACETAMINOPHEN IV (For NPO) 1,000 MG in EMPTY BAG 1 BAG IVPB ONE (08:22)
[2024-08-17] MEDS: LIDOCAINE 1% INJ 10MG/ML (20 ML MDV) SQ ONE (08:30)
[2024-08-17] MEDS: IOPAMIDOL-250 100ML BTL IVP ONE (09:57)
[2024-08-17 10:25] LABS: T4, Free (Free Thyroxine) 1.07 ng/dL (0.78-2.19)
--- NOTE | 2024-08-17 13:55 | P.EPPROC ---
- EP Procedure Note Electrophysiology Procedure Note: PROCEDURE A. fib ablation with pulmonary vein isolation at the antral level and left atrial septal ablation DIAGNOSIS Persistent atrial fibrillation, symptomatic, refractory to therapy, failed amiodarone plus electrical cardioversion RESULT No left atrial appendage mass seen on intracardiac echo, mildly thickened pericardium, near normal LV function on intracardiac echo Very large right sided pulmonary veins both superior and inferior Successful A. fib ablation/pulmonary vein isolation of all veins using cryo- ablation Complete entrance block in all 4 veins confirmed No evidence for phrenic nerve injury Left atrial septal ablation Esophageal deflection YES / NO Electrical cardioversion with a synchronized shock across the chest YES PROCEDURE DETAILS Written informed consent prior to procedure. Patient brought to the EP lab. General anesthesia given. Heparin administered. A city maintained above 300 seconds Both groins prepped and draped per protocol and venous sheaths placed. Esophagus intubated, circa catheter for temperature monitoring an endoscope for possible esophageal deflection. Phrenic nerve monitoring performed. Esophageal temperature monitoring performed. Esophageal deflection performed if circa catheter overlapping with the balloon or circa temperature less than 27.5C Intracardiac echocardiography performed. Pericardium evaluated. Left atrial appendage evaluated. Left atrium evaluated along with pulmonary veins Transseptal catheterization performed under fluoroscopic guidance and intracardiac echo guidance Cryoablation sheath exchanged, balloon catheter along with achieve catheter placed in the left atrium. Pulmonary veins isolated in the following sequence: Left superior pulmonary vein followed by left inferior pulmonary vein, followed by right inferior pulmonary vein and lastly right superior pulmonary vein. Phrenic nerve stimulation along with capture thresholds within the SVC and right superior pulmonary vein to identify the phrenic nerve proximity to the cryo- balloon. Pulmonary veins isolated and confirmed with entrance and exit block. Phrenic nerve integrity confirmed at the end of the procedure Ablation of the left atrial septum performed with cannulation of the superior branch of the right inferior or the inferior branch of the right superior vein to achieve ablation of the posterior septum of the left atrium. Ablation of electrograms confirmed Electrical cardioversion performed for persistence of atrial fibrillation despite successful ablation. Diagnostic catheters for the high right atrium, His bundle, coronary sinus placed. LA and RA pressures recorded LA pressure: 04/04/14 Diagnostic EP study with coronary sinus pacing and recording in sinus rhythm Baseline measurements: Sinus cycle length 922 ms, MA interval 163 ms, QRS 106 ms and QT interval 405 ms AH 93 ms and HV interval 35 ms Venous sheaths were removed and hemostasis assured with a closure device. Patient extubated and transferred to recovery PROCEDURES PERFORMED Diagnostic EP study CS pacing and recording Left and right transseptal catheterization Catheter the mapping of the tachycardia Intracardiac echocardiography Pulmonary vein isolation with transseptal and comprehensive EPS, [id number] Linear ablation, left atrium, [id number] Electrical cardioversion with a synchronized shock across the chest [id number]
[2024-08-17] MEDS: ACETAMINOPHEN IV (For NPO) 1,000 MG in EMPTY BAG 1 BAG IVPB ONE (16:14)
[2024-08-17] MEDS: DEXAMETHASONE SOD PHOSPHATE 4 MG/ML 1 ML VIAL IV ONE (16:14)
[2024-08-17] MEDS: ONDANSETRON 4 MG/2 ML VIAL IVP ONE (16:14)
[2024-08-17] MEDS: ACETAMINOPHEN TAB 325 MG TAB PO PRN (16:26)
[2024-08-17] MEDS: LACTATED RINGERS 1,000 ML IV SCH (17:00)
[2024-08-17] MEDS: ASPIRIN 81 MG PO SCH (17:00)
[2024-08-17] MEDS: APIXABAN 5 MG TAB PO SCH (21:20)
[2024-08-18 07:31] VITALS: BP 123/74; PULSE 69; RESP 16; TEMP 97.4
--- NOTE | 2024-08-18 08:25 | P.DS ---
Providers Attending physician: Coy Kendrick Primary care physician: [facility] Course: Patient is resting comfortably in bed. Mild sore throat. Yesterday had occasional chest pain. Today he has no pleuritic chest pain no discomfort Heart sounds are normal breath sounds are clear Blood pressure 117/72 mmHg pulse rate in the 70s afebrile Abdomen is soft Impression Persistent atrial fibrillation that has failed amiodarone plus electrical cardioversion in the past Status post successful antral isolation of the pulmonary veins and the left atrial septum Mildly prolonged AL interval today on twelve-lead EKG Known CAD status post stenting in the past Plan Reduce Toprol-XL to 50 mg once daily. On intracardiac echo LV function was near normal Plan Continue Eliquis uninterrupted and this was explained to the patient and his Continue all other cardiac medications Follow-up with Dr. Negron in 1 week Plan - Discharge Summary Discharge Rx Participant: No New Discharge Prescriptions: No Action Nitroglycerin Sl Tabs [Nitrostat] 0.4 mg SUBLINGUAL DIRECTED PRN PRN Reason: Chest Pain Atorvastatin [Lipitor] 80 mg PO DAILY Montelukast [Singulair] 10 mg PO DAILY Cetirizine HCl [Zyrtec] 10 mg PO HS Acetaminophen [Tylenol Extra Strength] 1,000 mg PO BID Metoprolol Succinate (ER) [Toprol Xl] 50 mg PO BID Apixaban [Eliquis] 5 mg PO BID 30 Days #60 tab Aspirin [Adult Low Dose Aspirin EC] 81 mg PO DAILY Discharge Medication List Atorvastatin [Lipitor] 80 mg PO DAILY 10/14/15 [History] Nitroglycerin Sl Tabs [Nitrostat] 0.4 mg SUBLINGUAL DIRECTED PRN 10/14/15 [History] Acetaminophen [Tylenol Extra Strength] 1,000 mg PO BID 01/27/22 [History] Cetirizine HCl [Zyrtec] 10 mg PO HS 01/27/22 [History] Montelukast [Singulair] 10 mg PO DAILY 01/27/22 [History] Apixaban [Eliquis] 5 mg PO BID 30 Days #60 tab 01/29/22 [Rx] Aspirin [Adult Low Dose Aspirin EC] 81 mg PO DAILY 01/28/24 [History] Metoprolol Succinate (ER) [Toprol Xl] 50 mg PO BID 08/10/24 [History] Follow up Appointment(s)/Referral(s): Parker Negron MD [STAFF PHYSICIAN] - 1 Week Activity/Diet/Wound Care/Special Instructions: Post EP study - Ablation instructions 1. Keep access sites dry for 2 days. 2. No heavy lifting or straining for 2 days. 3. Avoid bending the hips repeatedly for 2 days. 4. You may go up and down stairs slowly 5. If you have had an ablation for atrial fibrillation or atrial flutter and are on a blood thinner, do not stop the blood thinner even temporarily for 3 months post ablation Call if the following is noted 1. Bleeding, increasing swelling or pain at the access sites. 2. Increasing chest discomfort, especially upon taking a deep breath. 3. Increasing shortness of breath, at rest or with exertion. 4. Undue cough / phlegm 5. Difficulty or pain while swallowing. 6. Pain or change in color in the extremities. 7. Fever, chills, rigors. 8. Increasing headache or neurologic symptoms. 9. Dizziness, fainting, palpitations For patients who have undergone an A-fib ablation /atrial flutter ablation Strict instruction; do NOT stop anticoagulation (Eliquis/Xarelto/Pradaxa) for the next 2 months temporarily, for any elective, nonurgent surgery. This increases the risk of stroke, post A-fib ablation Discharge Disposition: HOME SELF-CARE
[2024-08-18] MEDS: METOPROLOL SUCCINATE (ER) 50 MG TAB.ER.24H PO SCH (08:34)
[2024-08-18] MEDS: MONTELUKAST 10 MG TAB PO SCH (08:34)
[2024-08-18] MEDS: ASPIRIN 81 MG PO SCH (08:34)
[2024-08-18] MEDS: ATORVASTATIN 80 MG TAB PO SCH (08:34)
== END 2024-08-18 14:02 | disposition home or self-care (01) ==
LOC: CATHEP 05:54 → 6NMEDSUR 10:09 → CATHEP 08-18 14:02
PROVIDERS: ATTEND Internal Medicine Clinical Cardiac Electrophysiology
DX: I48.19 Other persistent atrial fibrillation (principal); I25.119 Atherosclerotic heart disease of native coronary artery with unspecified angina pectoris; Z95.5 Presence of coronary angioplasty implant and graft; E78.5 Hyperlipidemia, unspecified; I34.0 Nonrheumatic mitral (valve) insufficiency; G47.30 Sleep apnea, unspecified; E03.9 Hypothyroidism, unspecified; Z79.01 Long term (current) use of anticoagulants; Z79.82 Long term (current) use of aspirin; Z79.899 Other long term (current) drug therapy; Z82.49 Family history of ischemic heart disease and other diseases of the circulatory system; Z88.1 Allergy status to other antibiotic agents
CPT/HCPCS: 92960; 93656; 93657; 86900; 86901; 84439; 80053; 84443; 85025; 86850; C1894; C1769; C1760 ×3; C1730 ×2; C1759; C1733; C1766; J0330; J1644 ×3; J2405; J2003; J3010; J2704; Q9966; J2371